=== PATIENT | female | born 1940 | race African-American/Black ===

== ENCOUNTER → 2017-03-01 | Outpatient (CLI) | payer MEDICARE, OTHER ==
[~2017-03-01] MED LIST: ATOR10TA60 PO; HYDR50TA6 PO; LOSA50TA6 PO; MELO15TA23 PO; METF-620 PO; NITR50CA PO; OMEP40CA5 PO
[2017-03-01 09:28] LABS: CALCIUM 9.3 mg/dL (8.5-10.1); CREATININE 0.9 mg/dL (0.6-1.0); GFR 74.1; POTASSIUM 4.1 mmol/L (3.5-5.1)
[2017-03-01 09:37] LABS: BASO % 1 % (0-3); EOS % 2 % (0-3); HEMATOCRIT 33.8 % (36.0-47.0); HEMOGLOBIN 10.6 g/dL (12.0-15.5); LYMPH # 1.9 x10^3/uL (1.0-4.8); LYMPH % 28 % (24-48); MEAN CORPUSCULAR HEMOGLOBIN 22 pg (25-35); MEAN CORPUSCULAR HGB CONC 31 g/dL (31-37); MEAN CORPUSCULAR VOLUME 70 fL (79-100); MONO % 6 % (0-9); NEUT % 63 % (31-73); PLATELET COUNT 218 x10^3/uL (140-400); RED CELL DISTRIBUTION WIDTH 18.4 % (11.5-14.5); WHITE BLOOD COUNT 6.7 x10^3/uL (4.0-11.0)
[2017-03-01 09:59] LABS: PROTHROMBIN TIME PATIENT 12.6 SEC (11.7-14.0)
[2017-03-01 11:04] LABS: PLT ESTIMATE ADEQUATE (ADEQUATE)
[2017-03-01 11:06] LABS: ANISOCYTOSIS SLIGHT; HYPOCHROMIA MOD; MICROCYTOSIS MOD; POIKILOCYTOSIS SLIGHT
--- NOTE | 2017-03-01 13:28 | RAD ---
Indication anticipated knee replacement. Preoperative imaging. Frontal and lateral views of the chest were obtained. No prior imaging of the chest is available. Postoperative changes are noted. There is mild enlargement of the cardiac silhouette. There is no congestive heart failure. There is no focal infiltrate. Significant pleural fluid is not seen. There is no pneumothorax. IMPRESSION: No acute or significant finding in the chest
[2017-03-01 14:44] LABS: BILIRUBIN,URINE NEGATIVE (NEG); GLUCOSE,URINE NEGATIVE (NEG); NITRITE,URINE NEGATIVE (NEG); PH,URINE 5.5; PROTEIN,URINE NEGATIVE (NEG-TRACE); UROBILINOGEN,URINE 0.2 mg/dL (0.2 mg/dL)
[2017-03-01 14:47] LABS: RBC,URINE 0 /HPF (0-2)
[2017-03-01 14:48] LABS: BACTERIA,URINE 0 /HPF (0-FEW); SQUAMOUS EPITHELIAL CELL,UR OCC /LPF; WBC,URINE OCC /HPF (0-4)
== END | disposition home or self-care (01) ==
LOC: SURGPAT 12:52
PROVIDERS: ATTEND Orthopaedic Surgery
DX: Z01.818 Encounter for other preprocedural examination (principal); I10 Essential (primary) hypertension; M17.12 Unilateral primary osteoarthritis, left knee; Z96.652 Presence of left artificial knee joint
CPT/HCPCS: 36415; 71020; 80048; 81001; 82040; 82306; 83036; 85025; 85610; 85651; 85730; 87086; 87641

== ENCOUNTER → 2018-12-13 | Outpatient (CLI) | payer OTHER ==
[2017-08-05 13:09] VITALS: BP 170/78
[~2018-12-13] MED LIST changes: +ASPI325T11 PO; +ASPI325T8 PO; +CEPH-264 PO; +FERR325T14 PO; +LOSA-73 PO; +LOSA100T14 PO; -LOSA50TA6 PO; -METF-620 PO; +METF10007 PO; +OXYC1TAB15 PO; +TRAM50TA PO
--- NOTE | 2018-12-14 08:28 | KCIC ---
STUDY: MRI of the right shoulder without contrast INDICATION: Recent fall. Right shoulder pain. Limited range of motion. COMPARISON: No prior cross-sectional imaging of the right shoulder available for comparison. TECHNIQUE: Multiplanar MR imaging of the right shoulder performed without the use of intravenous or intra-articular contrast. FINDINGS: AC joint: Moderate AC joint arthrosis. Spurring at the joint, particularly at the distal clavicle, results in some mild mass effect on the subjacent supraspinatus myotendinous junction, reference image 12 series 11. Small volume fluid within the subacromial subdeltoid bursa Rotator cuff: Focal low-grade interstitial tear of the junctional supraspinatus at the footprint, image 11 series 9. Background mild supraspinatus tendinosis. Some infraspinatus tendinosis is present as well without high-grade tear. The teres minor is intact. The subscapularis is intact. No advanced atrophy or fatty infiltration of the rotator cuff musculature. Labrum: Tearing of the superior labrum which extends into the biceps labral anchor, image 9 series 9. Some fraying/irregularity at the posterior/inferior labrum. Long head biceps tendon: The long head biceps tendon is normally located. Some intra-articular tendinosis as well as aforementioned tearing at the biceps-labral anchor. Cartilage: Areas of chondral thinning, particularly at the medial humeral head. Bones: Somewhat heterogeneous marrow signal without aggressive features. No acute fracture. Miscellaneous: No significant shoulder joint effusion. No axillary adenopathy. Impression: 1. Supraspinatus and infraspinatus tendinosis as well as a low-grade interstitial tear of the posterior/junctional supraspinatus at the footprint, image 11 series 9. Maintained rotator cuff muscular bulk. 2. Superior labral tear extending into the proximal long head biceps tendon at the biceps-labral anchor. Background mild intra-articular long head biceps tendinosis. 3. Scattered areas of glenohumeral joint chondral thinning, most notable at the medial humeral head. 4. Moderate AC joint arthrosis with some distal subclavicular spurring results in mild mass effect on the supraspinatus myotendinous junction. Electronically signed by: ANNABEL TREJO MD (12/14/2018 8:25 AM) [facility]
== END | disposition home or self-care (01) ==
LOC: KCIC MRI 14:18
PROVIDERS: ATTEND Orthopaedic Surgery
DX: S46.111A Strain of muscle, fascia and tendon of long head of biceps, right arm, initial encounter (principal); S46.011A Strain of muscle(s) and tendon(s) of the rotator cuff of right shoulder, initial encounter; S43.491A Other sprain of right shoulder joint, initial encounter; M19.011 Primary osteoarthritis, right shoulder; M75.81 Other shoulder lesions, right shoulder; W19.XXXA Unspecified fall, initial encounter; Y93.89 Activity, other specified; Y92.89 Other specified places as the place of occurrence of the external cause; Y99.8 Other external cause status
CPT/HCPCS: 73221

== ENCOUNTER 2019-04-12 12:53 | Emergency (ER) | payer OTHER ==
[~2019-04-12] VITALS: Ht 162.6 cm; Wt 78.0 kg
[~2019-04-12 12:53] MED LIST changes: +OMEP40CA45 PO; -OMEP40CA5 PO
[2019-04-12] MEDS ORDERED: diphenhydrAMINE HCL 25 MG CAPSULE PO ONE (13:30)
[2019-04-12] MEDS ORDERED: ACETAMINOPHEN 325 MG TABLET. PO ONE (13:45)
--- NOTE | 2019-04-12 13:51 | PHYS DOC ---
Past Medical History Past Medical History: CAD, Diabetes-Type II, GERD, Heart Disease, Hypertension, Sciatica Past Surgical History: Knee Replacement Additional Past Surgical Histo: appy, partial hysterectomy, left eye implant, rt foot operation Alcohol Use: None Drug Use: None Adult General Chief Complaint Chief Complaint: MECHANICAL FALL HPI HPI 78-year-old female presenting the emergency department today after standing up a little too quickly feeling a little dizzy and falling backwards. She doesn't think she hit her head but her daughter thinks she might have. She complains of right shoulder pain and left wrist pain. The pain is sharp shooting nonradiating without alleviating factors. He frequently gets dizzy from her acoustic neuroma. Review of systems is negative for shortness of breath headache vision changes numbness weakness or tingling of the extremities. Negative for chest pain or abdominal pain. She has left-sided rib pain without midline back pain. All other review of systems is negative unless otherwise noted in history of present illness. ED course: 78-year-old female who fell backwards. X-rays and CT ordered. X-rays left wrist show a triquetral fracture. X-rays of the shoulder and ribs were unremarkable. A placed the patient in the right shoulder sling. Head neck CT are unremarkable. Patient was able to ambulate in the emergency department without any pain in the hip. Review of Systems Review of Systems SEE ABOVE. Current Medications Current Medications Current Medications Medications (Trade) Dose Ordered Sig/Jannet Start Time Stop Time Status Last Admin Dose Admin Acetaminophen (Tylenol) 650 mg 1X ONCE 04/12/19 13:45 04/12/19 13:48 DC 04/12/19 13:57 650 MG Diphenhydramine HCl (Benadryl) 12.5 mg 1X ONCE 04/12/19 13:30 04/12/19 13:31 DC Ibuprofen (Motrin) 400 mg 1X ONCE 04/12/19 14:45 04/12/19 14:46 DC 04/12/19 14:41 400 MG Allergies Allergies Allergies Coded Allergies Type Severity Reaction Last Updated Verified gold Au 198 Allergy Intermediate Swelling 03/17/17 Yes nickel Allergy Intermediate Swelling 03/17/17 Yes silver Allergy Intermediate Swelling 03/17/17 Yes Penicillins Adverse Reaction Intermediate 01/21/17 Yes Tetracyclines Adverse Reaction Intermediate 01/21/17 Yes codeine Adverse Reaction Intermediate Nausea and Vomiting 08/03/17 Yes erythromycin base Adverse Reaction Intermediate Nausea and Vomiting 01/21/17 Yes morphine Adverse Reaction Intermediate VOMITING 08/03/17 Yes Physical Exam Physical Exam SEE ABOVE Constitutional: Well developed, well nourished, no acute distress, non-toxic appearance. HENT: Normocephalic, without any signs of lacerations ecchymosis or bruising. No depressed skull fractures., bilateral external ears normal, oropharynx moist, no oral exudates, nose normal. [] Eyes: PERRLA, EOMI, conjunctiva normal, no discharge. [] Neck: Normal range of motion, no tenderness, supple, no stridor. [] Cardiovascular:Heart rate regular rhythm, no murmur [] Lungs & Thorax: Bilateral breath sounds clear to auscultation [] Abdomen: Bowel sounds normal, soft, no tenderness, no masses, no pulsatile masses. [] Skin: Warm, dry, no erythema, no rash. [] Back: No tenderness, no CVA tenderness. [] Extremities: The patient's right shoulder has mildly tender to palpation. All pain with passive range of motion. Normal strength in internal and external rate patient. Normal strength on abduction and adduction. Normal neurovascular status distally. Nontender throughout the elbow and wrist and hand. The patient's left upper extremity has mild tenderness in the left wrist without any swelling or bruising. The hand elbow and shoulder left wrist are nontender with normal range of motion of the joints. The lower extremities are nontender without any pain in the hips. She is able to ambulate without any pain. Neurologic: Alert and oriented X 3, normal motor function, normal sensory function, no focal deficits noted. 5 out of 5 strength in the extremities. Psychologic: Affect normal, judgement normal, mood normal. [] Current Patient Data Vital Signs Vital Signs Date Time Temp Pulse Resp B/P (MAP) Pulse Ox O2 Delivery O2 Flow Rate FiO2 04/12/19 15:04 72 96 04/12/19 12:58 97.8 20 154/67 (96) Room Air 97.8 EKG EKG [] Radiology/Procedures Radiology/Procedures [] Course & Med Decision Making Course & Med Decision Making Pertinent Labs and Imaging studies reviewed. (See chart for details) [] Dragon Disclaimer Dragon Disclaimer This electronic medical record was generated, in whole or in part, using a voice recognition dictation system. Departure Departure Impression: Primary Impression: Left shoulder pain Additional Impressions: Triquetral fracture Rib pain Disposition: 01 HOME, SELF-CARE Condition: STABLE Referrals: GEOFFREY REDDING MD (PCP) ROBERT DILLARD II, MD Patient Instructions: Shoulder Pain, Wrist Fracture Additional Instructions: Thank you for allowing us to participate in your care today. Return to the emergency department you have any new or worsening symptoms, or if you are concerned for any reason. Return to emergency department if you have any new or concerning symptoms including but not limited to fever, chills, nausea, vomiting, intractable pain, any new rashes, chest pain, shortness of air, uncontrolled bleeding, difficulty breathing, and/or vision loss. Follow up with your primary care physician within 1-2 days and orthopedic surgery in 3-5 days. Call your Primary Doctor tomorrow and inform them of your visit today. If you do not have a primary care provider we are happy to provide you with a list of our primary care providers contact information. This condition should be evaluated by your primary care physician and any recommended consulting services for continued management within 2 days after discharge. If at any time, you are having difficulty getting into your primary care doctor or a specialist, return to the emergency department. Scripts Cyclobenzaprine Hcl (CYCLOBENZAPRINE HCL) 5 Mg Tablet 1 TAB PO TID PRN PRN for PAIN, #12 TAB 0 Refills Prov: NANCY SHAIKH MD 04/12/19 Problem Qualifiers NANCY SHAIKH MD Apr 12, 2019 13:51
--- NOTE | 2019-04-12 14:22 | RAD ---
PA chest and 3 oblique left rib x-rays HISTORY: Fall. FINDINGS: Median sternotomy. Heart size normal. Aortic arch calcified plaque. No pneumothorax, pulmonary opacities or pleural effusions. Small calcified granulomas upper lobes. No evidence of a left rib fracture. IMPRESSION: No acute process. No evidence of a left rib fracture. Left wrist x-rays 3 views HISTORY: Fall, left wrist pain. FINDINGS: Irregular lucency and cortical discontinuity of the triquetrum suspicious for fracture with ill-defined sclerotic bony margins could indicate this is a nonunion fracture or pathologic fracture, versus an acute traumatic impacted fracture. No dislocation. Remaining carpal bones intact. No normal pisiform identified. IMPRESSION: Fracture of the triquetrum as described above. Right shoulder x-rays 3 views HISTORY: Fall. FINDINGS: No fracture. No dislocation. Arthrosis of the acromioclavicular joint. IMPRESSION: No acute osseous injury. Electronically signed by: Dann Yao MD (04/12/2019 2:19 PM) [facility]
--- NOTE | 2019-04-12 14:33 | RAD ---
CT head without contrast. CT cervical spine without contrast. PQRS statement: CT scans at this facility use dose reduction including either automated exposure control, iterative reconstructions, and /or weight based radiation dosing via mA and kV modification when appropriate to reduce radiation dose to as low as reasonably achievable. HISTORY: Fall from standing. CT head findings: Right cerebellopontine angle 1.4 cm oblong extra-axial mass with increased density likely from microcalcification most likely a meningioma. No intracranial hemorrhage, hydrocephalus or infarction. No acute ischemic change. Orbits, mastoids and bones are unremarkable. IMPRESSION: No acute intracranial CT abnormality. Right cerebellopontine angle mass most likely a meningioma as described above. CT cervical spine findings: Precervical junction intact. Cervical vertebral body height and alignment intact. No fracture of the cervical spine. Multilevel cervical disc height loss as well as scattered disc bulges and uncovertebral and facet spurs with spinal canal and neural foraminal stenoses with probable severe stenosis at C5-C6 and C6-C7. Lung apices and paraspinal tissues are unremarkable. IMPRESSION: No acute osseous injury of the cervical spine. Cervical disc disease as described above. Electronically signed by: Dann Yao MD (04/12/2019 2:30 PM) [facility]
[2019-04-12] MEDS ORDERED: IBUPROFEN 400 MG TABLET. PO ONE (14:45)
[2019-04-12 15:04] VITALS: BP 146/68
[2019-04-12] MEDS ORDERED: CYCL5TAB PO (15:37)
== END 2019-04-12 15:40 | disposition home or self-care (01) ==
LOC: ER 12:53
DX: S62.114A Nondisplaced fracture of triquetrum [cuneiform] bone, right wrist, initial encounter for closed fracture (principal); M25.511 Pain in right shoulder; M25.532 Pain in left wrist; R42 Dizziness and giddiness; R07.81 Pleurodynia; M50.90 Cervical disc disorder, unspecified, unspecified cervical region; E11.9 Type 2 diabetes mellitus without complications; I11.9 Hypertensive heart disease without heart failure; I25.10 Atherosclerotic heart disease of native coronary artery without angina pectoris; Z90.711 Acquired absence of uterus with remaining cervical stump; Z88.0 Allergy status to penicillin; Z88.1 Allergy status to other antibiotic agents; Z88.5 Allergy status to narcotic agent; Z88.8 Allergy status to other drugs, medicaments and biological substances; W18.39XA Other fall on same level, initial encounter; Y93.89 Activity, other specified; Y92.89 Other specified places as the place of occurrence of the external cause; Y99.8 Other external cause status
CPT/HCPCS: 29125; 70450; 71101; 72125; 73030; 73110; 99284-25

== ENCOUNTER → 2019-11-02 | Outpatient (CLI) | payer MEDICARE, OTHER ==
[~2019-11-02] MED LIST changes: +CYCL5TAB PO
--- NOTE | 2019-11-02 14:00 | KCIC ---
LUMBAR SPINE WO CONTRAST Date: 11/02/2019 12:30 PM Indication: Reason: LEFT HIP PAIN / Spl. Instructions: / History: Left hip pain x one month. Comparison: None. Technique: Multi-planar multi-weighted magnetic resonance imaging of the lumbar spine was performed without intravenous contrast using the standard lumbar spine protocol. FINDINGS: Trace retrolisthesis at L2-3. Trace anterolisthesis at L4-5. No acute fracture. Mild multilevel degenerative disc desiccation and disc height loss. No marrow replacing process to suggest malignancy. The conus terminates at a normal level. No abnormal signal is seen within the visualized distal spinal cord. No clumping of intrathecal nerve roots. No soft tissue abnormality in the visualized abdomen or pelvis. T12-L1: No disc bulge. No facet arthropathy. No significant spinal stenosis or neural foraminal narrowing. L1-L2: Disc bulge. Mild facet arthropathy. No significant spinal stenosis or neural foraminal narrowing. L2-L3: Disc bulge. Mild facet arthropathy. Mild spinal stenosis. Mild bilateral neural foraminal narrowing. L3-L4: Disc bulge. Mild facet arthropathy. No significant spinal stenosis or neural foraminal narrowing. L4-L5: Disc bulge. Moderate to severe facet arthropathy with edema in the facet joints. Ligamentum flavum thickening. No significant spinal stenosis. Mild bilateral neural foraminal narrowing. L5-S1: Disc bulge. Mild facet arthropathy. No significant spinal stenosis. Mild bilateral neural foraminal narrowing. IMPRESSION: Mild to moderate lumbar spondylosis, detailed level by level above. Electronically signed by: Michael Khan MD (11/02/2019 1:58 PM) [id number]
== END ==
LOC: KCIC MRI 12:25
PROVIDERS: ATTEND Orthopaedic Surgery
DX: M47.817 Spondylosis without myelopathy or radiculopathy, lumbosacral region (principal); M48.061 Spinal stenosis, lumbar region without neurogenic claudication
CPT/HCPCS: 72148

== ENCOUNTER 2020-01-29 17:58 | Inpatient (IN) | payer MEDICARE, OTHER ==
[~2020-01-29] VITALS: Ht 162.6 cm; Wt 77.1 kg
[2020-01-29] MEDS ORDERED: ONDANSETRON PF 4 MG/2 ML VIAL. IVP ONE (18:45)
[2020-01-29] MEDS ORDERED: fentaNYL PF VIAL 100 MCG/2 ML VIAL IVP ONE (18:45)
[2020-01-29 18:54] LABS: BASO % 0 % (0-3); EOS # 0.1 x10^3/uL (0.0-0.7); EOS % 1 % (0-3); HEMATOCRIT 38.8 % (36.0-47.0); HEMOGLOBIN 12.9 g/dL (12.0-15.5); LYMPH # 1.9 x10^3/uL (1.0-4.8); LYMPH % 20 % (24-48); MEAN CORPUSCULAR HEMOGLOBIN 29 pg (25-35); MEAN CORPUSCULAR HGB CONC 33 g/dL (31-37); MEAN CORPUSCULAR VOLUME 87 fL (79-100); MONO # 0.6 x10^3/uL (0.0-1.1); MONO % 6 % (0-9); NEUT % 73 % (31-73); PLATELET COUNT 162 x10^3/uL (140-400); RED BLOOD COUNT 4.44 x10^6/uL (3.50-5.40); RED CELL DISTRIBUTION WIDTH 14.5 % (11.5-14.5); WHITE BLOOD COUNT 9.6 x10^3/uL (4.0-11.0)
[2020-01-29 19:04] LABS: PROTHROMBIN TIME PATIENT 12.8 SEC (11.7-14.0)
--- NOTE | 2020-01-29 19:24 | PHYS DOC ---
Past Medical History Past Medical History: CAD, Diabetes-Type II, GERD, Heart Disease, Hypertension, Sciatica Past Medical History acoustic neuroma Past Surgical History: Knee Replacement Additional Past Surgical Histo: appy, partial hysterectomy, left eye implant, rt foot operation,rotator cuf Smoking Status: Never Smoker Alcohol Use: None Drug Use: None General Adult EDM: Chief Complaint: HIP PAIN HPI: HPI: Patient is a 79 year old F who presents with L hip pain that began after falling on her left side. Pt states that she has a acoustic neuroma on her R side that causes her to lose her balance, but denies dizziness. She states that she has been falling more often over the last few months. She describes the hip pain as sharp and does not radiate. The pain is worse when she tries to move her left leg. She rates the pain as 12/10 on the pain scale and she received 100mcg of fetanyl by EMS. She states that she did not hit her head when she fell. She complains of nausea and some numbness of the L hip. Review of Systems: Review of Systems: Constitutional: Denies fever or chills Eyes: Denies redness or eye pain HENT: Denies nasal congestion or sore throat Respiratory: Denies cough or shortness of breath Cardiovascular: Denies chest pain or palpitations GI: Denies abdominal pain, vomiting. Complains of nausea. : Denies dysuria or hematuria Musculoskeletal: Denies back pain or joint pain Integument: Denies rash or skin lesions Neurologic: Denies headache, or focal weakness. Complete systems were reviewed and found to be within normal limits, except as documented in this note. Current Medications: Current Medications Medications (Trade) Dose Ordered Sig/Jannet Start Time Stop Time Status Last Admin Dose Admin Fentanyl Citrate (Fentanyl 2ml Vial) 50 mcg 1X ONCE 01/29/20 18:45 01/29/20 18:47 DC 01/29/20 19:04 50 MCG Ondansetron HCl (Zofran) 4 mg 1X ONCE 01/29/20 18:45 01/29/20 18:47 DC 01/29/20 19:03 4 MG Allergies: Allergies: Allergies Coded Allergies Type Severity Reaction Last Updated Verified gold Au 198 Allergy Intermediate Swelling 01/29/20 Yes nickel Allergy Intermediate Swelling 01/29/20 Yes silver Allergy Intermediate Swelling 01/29/20 Yes Penicillins Adverse Reaction Intermediate 01/29/20 Yes Tetracyclines Adverse Reaction Intermediate 01/29/20 Yes codeine Adverse Reaction Intermediate Nausea and Vomiting 01/29/20 Yes erythromycin base Adverse Reaction Intermediate Nausea and Vomiting 01/29/20 Yes morphine Adverse Reaction Intermediate VOMITING 01/29/20 Yes Physical Exam: PE: Constitutional: Well developed, well nourished. HENT: Normocephalic, atraumatic. Eyes: EOMI, conjunctiva normal. Neck: Normal range of motion, no tenderness, supple Lungs & Thorax: No respiratory distress, equal chest rise and fall Abdomen: Soft, no tenderness Skin: Warm, dry, no erythema, no rash Back: No tenderness, no CVA tenderness Extremities: L hip externally rotated. Pain to palpation L hip. No obvious deformity noted. Sensory intact b/l. Posterior tibial pulse +2/2 b/l. Able to move all toes. Neurologic: Alert and oriented X 3, normal motor function, normal sensory function, no focal deficits noted Psychologic: Affect normal, judgment normal Current Patient Data: Labs: Laboratory Tests Test 01/29/20 18:15 White Blood Count 9.6 x10^3/uL (4.0-11.0) Red Blood Count 4.44 x10^6/uL (3.50-5.40) Hemoglobin 12.9 g/dL (12.0-15.5) Hematocrit 38.8 % (36.0-47.0) Mean Corpuscular Volume 87 fL (79-100) Mean Corpuscular Hemoglobin 29 pg (25-35) Mean Corpuscular Hemoglobin Concent 33 g/dL (31-37) Red Cell Distribution Width 14.5 % (11.5-14.5) Platelet Count 162 x10^3/uL (140-400) Neutrophils (%) (Auto) 73 % (31-73) Lymphocytes (%) (Auto) 20 % (24-48) L Monocytes (%) (Auto) 6 % (0-9) Eosinophils (%) (Auto) 1 % (0-3) Basophils (%) (Auto) 0 % (0-3) Neutrophils # (Auto) 7.0 x10^3/uL (1.8-7.7) Lymphocytes # (Auto) 1.9 x10^3/uL (1.0-4.8) Monocytes # (Auto) 0.6 x10^3/uL (0.0-1.1) Eosinophils # (Auto) 0.1 x10^3/uL (0.0-0.7) Basophils # (Auto) 0.0 x10^3/uL (0.0-0.2) Laboratory Tests 01/29/20 18:15 Vital Signs: Vital Signs Date Time Temp Pulse Resp B/P (MAP) Pulse Ox O2 Delivery O2 Flow Rate FiO2 01/29/20 19:04 18 98 01/29/20 17:58 97.7 72 201/93 (129) Room Air 97.7 EKG: EKG: @18:16 Normal sinus rhythm with baseline wandering artifact. No ST elevations or T wave inversions. QRS 86ms, QT 412ms, QTc 458ms. Radiology/Procedures: Radiology/Procedures: PROCEDURE: HIP LEFT 2V WITH PELVIS HIP LEFT 2V WITH PELVIS History: Reason: pain s/p fall / Spl. Instructions: / History: Technique: AP view the pelvis and 2 additional views of the left hip. Comparison: October 02, 2019 Findings: Acute left femoral neck fracture with superior displacement. No dislocation. Lower lumbar spondylosis. Impression: 1. Acute displaced left femoral neck fracture. Electronically signed by: Liam Bach DO (01/29/2020 7:53 PM) [facility] PROC[facility]: CHEST AP ONLY CHEST AP ONLY History: Reason: LEFT HIP FX. / Spl. Instructions: / History: Preoperative evaluation Comparison: April 12, 2019 Findings: No consolidation or pleural effusion. Normal heart size. No pneumothorax. Prior median sternotomy. Impression: 1. No acute cardiopulmonary process. Electronically signed by: Liam Bach DO (01/29/2020 7:54 PM) [facility] Course & Med Decision Making: Course & Med Decision Making 79 yo F presented for L hip pain post fall. Pt states that she often loses her balance due to her acoustic neuroma. L hip tender to palpation, neurovascular intact. Imaging revealed L femoral neck fracture, non displaced. Pain controlled was achieved with fentanyl 150 mcg and benadryl. Nausea controlled with zofran and reglan. Orthopedic surgery consulted for future surgical intervention. Pt will be admitted to floor for further management. Pertinent Labs and Imaging studies reviewed. (See chart for details) [] Riccardo Disclaimer: Dragon Disclaimer: This electronic medical record was generated, in whole or in part, using a voice recognition dictation system. Departure Departure Impression: Primary Impression: Left displaced femoral neck fracture Additional Impression: Hypomagnesemia Disposition: 09 ADMITTED INPATIENT Admitting Physician: ALVIN (Delfino) Condition: STABLE Referrals: GEOFFREY REDDING MD (PCP) Justicifation of Admission Dx: Justifications for Admission: Justification of Admission Dx: Yes Comments: Left femoral neck fracture, Hypomagnesmia NANCI ZELAYA DO Jan 29, 2020 19:24
[2020-01-29 19:34] LABS: CALCIUM 9.4 mg/dL (8.5-10.1); CREATININE 1.2 mg/dL (0.6-1.0); GFR 43.6; POTASSIUM 3.7 mmol/L (3.5-5.1)
[2020-01-29 19:41] LABS: ALBUMIN 3.7 g/dL (3.4-5.0); ALBUMIN/GLOBULIN RATIO 1.1 (1.0-1.7); MAGNESIUM 1.4 mg/dL (1.8-2.4); TOTAL BILIRUBIN 0.2 mg/dL (0.2-1.0); TOTAL PROTEIN 7.1 g/dL (6.4-8.2)
--- NOTE | 2020-01-29 19:56 | RAD ---
HIP LEFT 2V WITH PELVIS History: Reason: pain s/p fall / Spl. Instructions: / History: Technique: AP view the pelvis and 2 additional views of the left hip. Comparison: October 02, 2019 Findings: Acute left femoral neck fracture with superior displacement. No dislocation. Lower lumbar spondylosis. Impression: 1. Acute displaced left femoral neck fracture. Electronically signed by: Liam Bach DO (01/29/2020 7:53 PM) [facility]
--- NOTE | 2020-01-29 19:57 | RAD ---
CHEST AP ONLY History: Reason: LEFT HIP FX. / Spl. Instructions: / History: Preoperative evaluation Comparison: April 12, 2019 Findings: No consolidation or pleural effusion. Normal heart size. No pneumothorax. Prior median sternotomy. Impression: 1. No acute cardiopulmonary process. Electronically signed by: Liam Bach DO (01/29/2020 7:54 PM) [facility]
[2020-01-29] MEDS ORDERED: METOCLOPRAMIDE HCL 10 MG/2 ML VIAL. IVP ONE (20:15)
[2020-01-29] MEDS ORDERED: diphenhydrAMINE 50 MG/ML VIAL IVP ONE (20:15)
[2020-01-29] MEDS ORDERED: DEXTROSE 50% 25 GM / 50ML DISP.SYRIN. IV PRN (20:45)
[2020-01-29] MEDS ORDERED: ONDANSETRON PF 4 MG/2 ML VIAL. IV PRN (20:45)
[2020-01-29] MEDS ORDERED: HYDROmorphone 2 MG/ML VIAL IVP ONE ×2 (20:45→22:00)
[2020-01-29] MEDS ORDERED: MAGNESIUM SULFATE 2GM 50 ML IV ONE (21:15)
[2020-01-29] MEDS ORDERED: traMADol 50 MG TABLET PO PRN (21:30)
[2020-01-29] MEDS ORDERED: LABETALOL 20 MG/4 ML DISP.SYRIN. IVP PRN (21:30)
[2020-01-29] MEDS ORDERED: ACETAMINOPHEN 325 MG TABLET. PO PRN (21:30)
[2020-01-29 23:00] VITALS: BP 174/63
[2020-01-29] MEDS: ATORVASTATIN CALCIUM 10 MG TABLET. PO SCH (23:45)
[2020-01-30] MEDS: ONDANSETRON PF 4 MG/2 ML VIAL. IV PRN ×3 (00:37→23:10)
[2020-01-30 03:00] VITALS: BP 142/72
[2020-01-30] MEDS: HYDROmorphone 2 MG/ML VIAL IVP PRN ×3 (03:23→16:49)
--- NOTE | 2020-01-30 04:14 | EKG ---
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
[2020-01-30 06:29] LABS: CALCIUM 9.1 mg/dL (8.5-10.1); CREATININE 0.9 mg/dL (0.6-1.0); GFR 60.7; MAGNESIUM 2.4 mg/dL (1.8-2.4); POTASSIUM 3.6 mmol/L (3.5-5.1)
[2020-01-30] MEDS: PANTOPRAZOLE 40 MG TABLET.DR. PO SCH (07:30)
[2020-01-30 07:34] VITALS: BP 137/52
[2020-01-30] MEDS ORDERED: [UNRECOGNIZED DRUG - REMARK] INT ART ONE (08:00)
[2020-01-30] MEDS ORDERED: INSULIN LISPRO 300 UNITS/3 ML VIAL. SQ SCH (08:00)
[2020-01-30] MEDS ORDERED: LIDOCAINE 2% PF 5 ML VIAL. ONE (09:16)
[2020-01-30] MEDS ORDERED: PROPOFOL 10 MG/ML (20ML) VIAL. IV ONE (09:16)
[2020-01-30] MEDS ORDERED: ROCURONIUM 50 MG/5 ML VIAL. ONE (09:16)
[2020-01-30] MEDS ORDERED: DEXAMETHASONE SOD PHOS 4 MG/ML VIAL ONE (09:16)
[2020-01-30] MEDS ORDERED: ONDANSETRON PF 4 MG/2 ML VIAL. ONE (09:16)
[2020-01-30] MEDS ORDERED: fentaNYL PF VIAL 100 MCG/2 ML VIAL ONE (09:16)
--- NOTE | 2020-01-30 09:29 | NUR ---
SW following. Discussed with RN, pt from home with family, room air, NPO, COVID-19 negative. Pt had a fall at home, ortho consulted. SW will continue to follow.
--- NOTE | 2020-01-30 10:41 | PDOC2 ---
CONSULT Date of Consult Date of Consult DATE: 01/30/20 TIME: 10:32 Reason for Consult Reason for Consult: Left hip pain after fall at home onto left side. Referring Physician Referring Physician: Dr. Carroll Identification/Chief Complaint Chief Complaint Left hip pain Source Source: Caregiver, Chart review, Patient History of Present Illness Reason for Visit: Patient does have an acoustic neuroma but states that she was not dizzy but has been falling more lately and fell onto her left hip and was unable to get to her feet related to pain. Past Medical History Cardiovascular: HTN GI: GERD, Other Endocrine: Diabetes Past Surgical History Past Surgical History: Appendectomy, Total knee replacement, Hysterectomy Family History Family History: Heart Disease Social History No ALCOHOL: none Drugs: None Current Problem List Problem List Problems Medical Problems: (1) Hypomagnesemia Status: Acute (2) Left displaced femoral neck fracture Status: Acute Current Medications Current Medications Current Medications Fentanyl Citrate (Fentanyl 2ml Vial) 50 mcg 1X ONCE IVP Last administered on 01/29/20at 19:04; Start 01/29/20 at 18:45; Stop 01/29/20 at 18:47; Status DC Ondansetron HCl (Zofran) 4 mg 1X ONCE IVP Last administered on 01/29/20at 19:03; Start 01/29/20 at 18:45; Stop 01/29/20 at 18:47; Status DC Diphenhydramine HCl (Benadryl) 25 mg 1X ONCE IVP ; Start 01/29/20 at 20:15; Stop 01/29/20 at 20:33; Status DC Metoclopramide HCl (Reglan Vial) 10 mg 1X ONCE IVP Last administered on 01/29/20at 20:40; Start 01/29/20 at 20:15; Stop 01/29/20 at 20:16; Status DC Hydromorphone HCl (Dilaudid) 0.5 mg 1X ONCE IVP Last administered on 01/29/20at 20:40; Start 01/29/20 at 20:45; Stop 01/29/20 at 20:46; Status DC Ondansetron HCl (Zofran) 4 mg PRN Q8HRS PRN IV NAUSEA/VOMITING; Start 01/29/20 at 20:45; Stop 01/29/20 at 21:30; Status DC Hydromorphone HCl (Dilaudid) 0.5 mg PRN Q4HRS PRN IVP PAIN Last administered on 01/30/20at 07:40; Start 01/29/20 at 20:45 Insulin Human Lispro (HumaLOG) 0-5 UNITS TIDWMEALS SQ ; Start 01/30/20 at 08:00 Dextrose (Dextrose 50%-Water Syringe) 12.5 gm PRN Q15MIN PRN IV SEE COMMENTS; Start 01/29/20 at 20:45 Magnesium Sulfate 50 ml @ 25 mls/hr 1X ONCE IV Last administered on 01/29/20at 23:45; Start 01/29/20 at 21:15; Stop 01/29/20 at 23:14; Status DC Hydromorphone HCl (Dilaudid) 0.5 mg 1X ONCE IVP Last administered on 01/29/20at 23:44; Start 01/29/20 at 22:00; Stop 01/29/20 at 22:01; Status DC Ondansetron HCl (Zofran) 4 mg PRN Q4HRS PRN IV NAUSEA/VOMITING 1ST CHOICE Last administered on 01/30/20at 00:37; Start 01/29/20 at 21:30 Acetaminophen (Tylenol) 650 mg PRN Q6HRS PRN PO MILD PAIN / TEMP > 100.3'F; Start 01/29/20 at 21:30 Atorvastatin Calcium (Lipitor) 10 mg HS PO Last administered on 01/29/20at 23:45; Start 01/29/20 at 22:00 Losartan Potassium (Cozaar) 100 mg DAILY PO ; Start 01/30/20 at 09:00 Pantoprazole Sodium (Protonix) 40 mg DAILYAC PO ; Start 01/30/20 at 07:30 Labetalol HCl (Normodyne Iv Push) 10 mg PRN Q2HR PRN IVP HYPERTENSION; Start 01/29/20 at 21:30 Tramadol HCl (Ultram) 50 mg PRN Q6HRS PRN PO MODERATE PAIN 4-6 Last administered on 01/30/20at 03:22; Start 01/29/20 at 21:30 Ropivacaine 53.3 ml/Epinephrine HCl 0.6 mg/ Morphine Sulfate 5 mg/Sodium Chloride 100 ml @ 100 mls/hr 1X ONCE INT ART ; Start 01/30/20 at 08:00; Stop 01/30/20 at 08:59; Status DC Rocuronium [place] (Zemuron) 50 mg STK-MED ONCE .ROUTE ; Start 01/30/20 at 09:16; Stop 01/30/20 at 09:16; Status DC Fentanyl Citrate (Fentanyl 2ml Vial) 100 mcg STK-MED ONCE .ROUTE ; Start 01/30/20 at 09:16; Stop 01/30/20 at 09:16; Status DC Propofol (Diprivan) 200 mg STK-MED ONCE IV ; Start 01/30/20 at 09:16; Stop 01/30/20 at 09:16; Status DC Dexamethasone Sodium Phosphate (Decadron) 4 mg STK-MED ONCE .ROUTE ; Start 01/30/20 at 09:16; Stop 01/30/20 at 09:16; Status DC Ondansetron HCl (Zofran) 4 mg STK-MED ONCE .ROUTE ; Start 01/30/20 at 09:16; Stop 01/30/20 at 09:16; Status DC Lidocaine HCl (Lidocaine Pf 2% Vial) 5 ml STK-MED ONCE .ROUTE ; Start 01/30/20 at 09:16; Stop 01/30/20 at 09:16; Status DC Active Scripts Active Cyclobenzaprine Hcl 5 Mg Tablet 1 Tab PO TID PRN PRN Reported Aspirin Ec (Aspirin) 325 Mg Tablet. 1 Tab PO BID Ferrous Sulfate 325 Mg Tablet 1 Tab PO BID Losartan Potassium 100 Mg Tablet 100 Mg PO DAILY Atorvastatin Calcium 10 Mg Tablet 10 Mg PO HS LAST DOSE GIVEN: DATE:08/04/17 TIME:9:00 p.m. next dose is tonight Omeprazole 40 Mg Capsule.dr 40 Mg PO DAILY LAST DOSE GIVEN: DATE:03/19/17 TIME:7:30 a.m. Metformin Hcl 1,000 Mg Tablet 1,000 Mg PO BIDWMEALS LAST DOSE GIVEN: DATE:03/19/17 TIME:12:00 p.m. Hydrochlorothiazide Tablet (Hydrochlorothiazide) 50 Mg Tablet 25 Mg PO DAILY Meds not given this hospital admission. May resume home medications as approved by Physician. Monitor BP at home Allergies Allergies: Coded Allergies: gold Au 198 (Verified Allergy, Intermediate, Swelling, 01/29/20) nickel (Verified Allergy, Intermediate, Swelling, 01/29/20) silver (Verified Allergy, Intermediate, Swelling, 01/29/20) Penicillins (Verified Adverse Reaction, Intermediate, 01/29/20) BLISTERS Tetracyclines (Verified Adverse Reaction, Intermediate, 01/29/20) MOUTH TURNS BRIGHT RED AND PEELS codeine (Verified Adverse Reaction, Intermediate, Nausea and Vomiting, 01/29/20) erythromycin base (Verified Adverse Reaction, Intermediate, Nausea and Vomiting, 01/29/20) morphine (Verified Adverse Reaction, Intermediate, VOMITING, 01/29/20) ROS PSYCHOLOGICAL ROS: No: Disorientation Physical Exam General: Alert, Oriented X3, Cooperative, severe distress MUSCULOSKELETAL: Abnormal exam of left (On examination patient will not allow any movement of the left lower extremity related to pain. The leg is shortened and externally rotated. Pulses are intact distally. She is able to move her toes feet and ankles well.) Vitals VITALS Vital Signs Date Time Temp Pulse Resp B/P (MAP) Pulse Ox O2 Delivery O2 Flow Rate FiO2 01/30/20 08:15 20 93 Room Air 01/30/20 07:34 98.5 71 137/52 (80) 98.5 Labs Labs Laboratory Tests Test 01/29/20 18:15 01/29/20 20:05 01/29/20 21:50 01/30/20 05:05 White Blood Count 9.6 x10^3/uL (4.0-11.0) Red Blood Count 4.44 x10^6/uL (3.50-5.40) Hemoglobin 12.9 g/dL (12.0-15.5) Hematocrit 38.8 % (36.0-47.0) Mean Corpuscular Volume 87 fL (79-100) Mean Corpuscular Hemoglobin 29 pg (25-35) Mean Corpuscular Hemoglobin Concent 33 g/dL (31-37) Red Cell Distribution Width 14.5 % (11.5-14.5) Platelet Count 162 x10^3/uL (140-400) Neutrophils (%) (Auto) 73 % (31-73) Lymphocytes (%) (Auto) 20 % (24-48) Monocytes (%) (Auto) 6 % (0-9) Eosinophils (%) (Auto) 1 % (0-3) Basophils (%) (Auto) 0 % (0-3) Neutrophils # (Auto) 7.0 x10^3/uL (1.8-7.7) Lymphocytes # (Auto) 1.9 x10^3/uL (1.0-4.8) Monocytes # (Auto) 0.6 x10^3/uL (0.0-1.1) Eosinophils # (Auto) 0.1 x10^3/uL (0.0-0.7) Basophils # (Auto) 0.0 x10^3/uL (0.0-0.2) Prothrombin Time 12.8 SEC (11.7-14.0) Prothromb Time International Ratio 1.0 (0.8-1.1) Activated Partial Thromboplast Time 28 SEC (24-38) Sodium Level 141 mmol/L (136-145) 140 mmol/L (136-145) Potassium Level 3.7 mmol/L (3.5-5.1) 3.6 mmol/L (3.5-5.1) Chloride Level 102 mmol/L (98-107) 102 mmol/L (98-107) Carbon Dioxide Level 21 mmol/L (21-32) 30 mmol/L (21-32) Anion Gap 18 (6-14) 8 (6-14) Blood Urea Nitrogen 22 mg/dL (7-20) 22 mg/dL (7-20) Creatinine 1.2 mg/dL (0.6-1.0) 0.9 mg/dL (0.6-1.0) Estimated GFR (Cockcroft-Gault) 43.6 60.7 BUN/Creatinine Ratio 18 (6-20) Glucose Level 106 mg/dL (70-99) 123 mg/dL (70-99) Calcium Level 9.4 mg/dL (8.5-10.1) 9.1 mg/dL (8.5-10.1) Magnesium Level 1.4 mg/dL (1.8-2.4) 2.4 mg/dL (1.8-2.4) Total Bilirubin 0.2 mg/dL (0.2-1.0) Aspartate Amino Transf (AST/SGOT) 30 U/L (15-37) Alanine Aminotransferase (ALT/SGPT) 30 U/L (14-59) Alkaline Phosphatase 62 U/L (46-116) Total Protein 7.1 g/dL (6.4-8.2) Albumin 3.7 g/dL (3.4-5.0) Albumin/Globulin Ratio 1.1 (1.0-1.7) SARS-CoV-2 Antigen (Rapid) Negative (NEGATIVE) 25-Hydroxy Vitamin D Total 20.5 ng/mL (30-100) Test 01/30/20 07:51 Glucose (Fingerstick) 116 mg/dL (70-99) Laboratory Tests Test 01/29/20 18:15 01/29/20 20:05 01/29/20 21:50 01/30/20 05:05 White Blood Count 9.6 x10^3/uL (4.0-11.0) Red Blood Count 4.44 x10^6/uL (3.50-5.40) Hemoglobin 12.9 g/dL (12.0-15.5) Hematocrit 38.8 % (36.0-47.0) Mean Corpuscular Volume 87 fL (79-100) Mean Corpuscular Hemoglobin 29 pg (25-35) Mean Corpuscular Hemoglobin Concent 33 g/dL (31-37) Red Cell Distribution Width 14.5 % (11.5-14.5) Platelet Count 162 x10^3/uL (140-400) Neutrophils (%) (Auto) 73 % (31-73) Lymphocytes (%) (Auto) 20 % (24-48) Monocytes (%) (Auto) 6 % (0-9) Eosinophils (%) (Auto) 1 % (0-3) Basophils (%) (Auto) 0 % (0-3) Neutrophils # (Auto) 7.0 x10^3/uL (1.8-7.7) Lymphocytes # (Auto) 1.9 x10^3/uL (1.0-4.8) Monocytes # (Auto) 0.6 x10^3/uL (0.0-1.1) Eosinophils # (Auto) 0.1 x10^3/uL (0.0-0.7) Basophils # (Auto) 0.0 x10^3/uL (0.0-0.2) Prothrombin Time 12.8 SEC (11.7-14.0) Prothromb Time International Ratio 1.0 (0.8-1.1) Activated Partial Thromboplast Time 28 SEC (24-38) Sodium Level 141 mmol/L (136-145) 140 mmol/L (136-145) Potassium Level 3.7 mmol/L (3.5-5.1) 3.6 mmol/L (3.5-5.1) Chloride Level 102 mmol/L (98-107) 102 mmol/L (98-107) Carbon Dioxide Level 21 mmol/L (21-32) 30 mmol/L (21-32) Anion Gap 18 (6-14) 8 (6-14) Blood Urea Nitrogen 22 mg/dL (7-20) 22 mg/dL (7-20) Creatinine 1.2 mg/dL (0.6-1.0) 0.9 mg/dL (0.6-1.0) Estimated GFR (Cockcroft-Gault) 43.6 60.7 BUN/Creatinine Ratio 18 (6-20) Glucose Level 106 mg/dL (70-99) 123 mg/dL (70-99) Calcium Level 9.4 mg/dL (8.5-10.1) 9.1 mg/dL (8.5-10.1) Magnesium Level 1.4 mg/dL (1.8-2.4) 2.4 mg/dL (1.8-2.4) Total Bilirubin 0.2 mg/dL (0.2-1.0) Aspartate Amino Transf (AST/SGOT) 30 U/L (15-37) Alanine Aminotransferase (ALT/SGPT) 30 U/L (14-59) Alkaline Phosphatase 62 U/L (46-116) Total Protein 7.1 g/dL (6.4-8.2) Albumin 3.7 g/dL (3.4-5.0) Albumin/Globulin Ratio 1.1 (1.0-1.7) SARS-CoV-2 Antigen (Rapid) Negative (NEGATIVE) 25-Hydroxy Vitamin D Total 20.5 ng/mL (30-100) Test 01/30/20 07:51 Glucose (Fingerstick) 116 mg/dL (70-99) Images Images PATIENT: JAYLON OGLESBY ACCOUNT: [id number] : 1940 LOCATION: ER AGE: 79 SEX: F EXAM STATUS: REG ER ORD. PHYSICIAN: NANCI ZELAYA DO REASON: pain s/p fall PROCEDURE: HIP LEFT 2V WITH PELVIS HIP LEFT 2V WITH PELVIS History: Reason: pain s/p fall / Spl. Instructions: / History: Technique: AP view the pelvis and 2 additional views of the left hip. Comparison: October 02, 2019 Findings: Acute left femoral neck fracture with superior displacement. No dislocation. Lower lumbar spondylosis. Impression: 1. Acute displaced left femoral neck fracture. Electronically signed by: Liam Bach DO (01/29/2020 7:53 PM) [facility] DICTATED and SIGNED BY: LIAM BACH DO DATE: 01/29/201952 Assessment/Plan Assessment/Plan 79-year-old female patient with a fall at home landing onto her left side and receiving an acute left femoral neck fracture. Patient is unable to move her leg without significant pain. Left leg is shortened and externally rotated. Patient has a nickel allergy and will need specific orthopedic instrumentation for fixation. Patient may have diet per admitting physician today but will will be n.p.o. after midnight. Pain control and control of nausea at this point. [employer] Jan 30, 2020 10:41
[2020-01-30] MEDS ORDERED: ONDANSETRON PF 4 MG/2 ML VIAL. IVP PRN (11:00)
[2020-01-30] MEDS ORDERED: ENOXAPARIN 40 MG/0.4 ML SYRINGE. SQ SCH (11:00)
[2020-01-30] MEDS ORDERED: DEXTROSE 50% 25 GM / 50ML DISP.SYRIN. IV PRN (11:15)
--- NOTE | 2020-01-30 11:18 | PDOC1 ---
History and Physical Date of Admission Date of Admission DATE: 01/30/20 TIME: 10:56 Identification/Chief Complaint Chief Complaint Left hip fracture Source Source: Caregiver, Patient History of Present Illness History of Present Illness Patient is a 79-year-old female with past medical history of acoustical neuroma, who presents to the ER for evaluation after suffering a fall from standing at home on the date of admission. Patient reports sharp left hip pain, 10/10, aggravated by movement. She was at home with her daughter, reports recurrent bouts of intermittent dizziness and over 25 falls at home over the past year. Patient does admit to some associated mild nausea. She denies any chest pain, cough, or shortness of breath. Past Medical History Cardiovascular: HTN GI: GERD, Other Endocrine: Diabetes Past Surgical History Past Surgical History: Appendectomy, Total knee replacement, Hysterectomy Family History Family History: Heart Disease Social History Smoke: No ALCOHOL: none Drugs: None Current Problem List Problem List Problems Medical Problems: (1) Hypomagnesemia Status: Acute (2) Left displaced femoral neck fracture Status: Acute Current Medications Current Medications Current Medications Fentanyl Citrate (Fentanyl 2ml Vial) 50 mcg 1X ONCE IVP Last administered on 01/29/20at 19:04; Start 01/29/20 at 18:45; Stop 01/29/20 at 18:47; Status DC Ondansetron HCl (Zofran) 4 mg 1X ONCE IVP Last administered on 01/29/20at 19:03; Start 01/29/20 at 18:45; Stop 01/29/20 at 18:47; Status DC Diphenhydramine HCl (Benadryl) 25 mg 1X ONCE IVP ; Start 01/29/20 at 20:15; Stop 01/29/20 at 20:33; Status DC Metoclopramide HCl (Reglan Vial) 10 mg 1X ONCE IVP Last administered on 01/29/20at 20:40; Start 01/29/20 at 20:15; Stop 01/29/20 at 20:16; Status DC Hydromorphone HCl (Dilaudid) 0.5 mg 1X ONCE IVP Last administered on 01/29/20at 20:40; Start 01/29/20 at 20:45; Stop 01/29/20 at 20:46; Status DC Ondansetron HCl (Zofran) 4 mg PRN Q8HRS PRN IV NAUSEA/VOMITING; Start 01/29/20 at 20:45; Stop 01/29/20 at 21:30; Status DC Hydromorphone HCl (Dilaudid) 0.5 mg PRN Q4HRS PRN IVP PAIN Last administered on 01/30/20at 07:40; Start 01/29/20 at 20:45 Insulin Human Lispro (HumaLOG) 0-5 UNITS TIDWMEALS SQ ; Start 01/30/20 at 08:00 Dextrose (Dextrose 50%-Water Syringe) 12.5 gm PRN Q15MIN PRN IV SEE COMMENTS; Start 01/29/20 at 20:45 Magnesium Sulfate 50 ml @ 25 mls/hr 1X ONCE IV Last administered on 01/29/20at 23:45; Start 01/29/20 at 21:15; Stop 01/29/20 at 23:14; Status DC Hydromorphone HCl (Dilaudid) 0.5 mg 1X ONCE IVP Last administered on 01/29/20at 23:44; Start 01/29/20 at 22:00; Stop 01/29/20 at 22:01; Status DC Ondansetron HCl (Zofran) 4 mg PRN Q4HRS PRN IV NAUSEA/VOMITING 1ST CHOICE Last administered on 01/30/20at 00:37; Start 01/29/20 at 21:30 Acetaminophen (Tylenol) 650 mg PRN Q6HRS PRN PO MILD PAIN / TEMP > 100.3'F; Start 01/29/20 at 21:30 Atorvastatin Calcium (Lipitor) 10 mg HS PO Last administered on 01/29/20at 23:45; Start 01/29/20 at 22:00 Losartan Potassium (Cozaar) 100 mg DAILY PO ; Start 01/30/20 at 09:00 Pantoprazole Sodium (Protonix) 40 mg DAILYAC PO ; Start 01/30/20 at 07:30 Labetalol HCl (Normodyne Iv Push) 10 mg PRN Q2HR PRN IVP HYPERTENSION; Start 01/29/20 at 21:30 Tramadol HCl (Ultram) 50 mg PRN Q6HRS PRN PO MODERATE PAIN 4-6 Last administered on 01/30/20at 03:22; Start 01/29/20 at 21:30 Ropivacaine 53.3 ml/Epinephrine HCl 0.6 mg/ Morphine Sulfate 5 mg/Sodium Chloride 100 ml @ 100 mls/hr 1X ONCE INT ART ; Start 01/30/20 at 08:00; Stop 01/30/20 at 08:59; Status DC Rocuronium [place] (Zemuron) 50 mg STK-MED ONCE .ROUTE ; Start 01/30/20 at 09:16; Stop 01/30/20 at 09:16; Status DC Fentanyl Citrate (Fentanyl 2ml Vial) 100 mcg STK-MED ONCE .ROUTE ; Start 01/30/20 at 09:16; Stop 01/30/20 at 09:16; Status DC Propofol (Diprivan) 200 mg STK-MED ONCE IV ; Start 01/30/20 at 09:16; Stop 01/30/20 at 09:16; Status DC Dexamethasone Sodium Phosphate (Decadron) 4 mg STK-MED ONCE .ROUTE ; Start 01/30/20 at 09:16; Stop 01/30/20 at 09:16; Status DC Ondansetron HCl (Zofran) 4 mg STK-MED ONCE .ROUTE ; Start 01/30/20 at 09:16; Stop 01/30/20 at 09:16; Status DC Lidocaine HCl (Lidocaine Pf 2% Vial) 5 ml STK-MED ONCE .ROUTE ; Start 01/30/20 at 09:16; Stop 01/30/20 at 09:16; Status DC Sodium Chloride 1,000 ml @ 75 mls/hr [id number] IV ; Start 01/30/20 at 11:00 Oxycodone/ Acetaminophen (Percocet 5/325) 1 tab PRN Q4HRS PRN PO PAIN; Start 01/30/20 at 11:00; Status UNV Ondansetron HCl (Zofran) 4 mg PRN Q6HRS PRN IVP NAUSEA/VOMITING; Start 01/30/20 at 11:00; Status UNV Docusate Sodium (Colace) 100 mg BID PO ; Start 01/30/20 at 21:00; Status UNV Active Scripts Active Cyclobenzaprine Hcl 5 Mg Tablet 1 Tab PO TID PRN PRN Reported Aspirin Ec (Aspirin) 325 Mg Tablet.dr 1 Tab PO BID Ferrous Sulfate 325 Mg Tablet 1 Tab PO BID Losartan Potassium 100 Mg Tablet 100 Mg PO DAILY Atorvastatin Calcium 10 Mg Tablet 10 Mg PO HS LAST DOSE GIVEN: DATE:08/04/17 TIME:9:00 p.m. next dose is tonight Omeprazole 40 Mg Capsule.dr 40 Mg PO DAILY LAST DOSE GIVEN: DATE:03/19/17 TIME:7:30 a.m. Metformin Hcl 1,000 Mg Tablet 1,000 Mg PO BIDWMEALS LAST DOSE GIVEN: DATE:03/19/17 TIME:12:00 p.m. Hydrochlorothiazide Tablet (Hydrochlorothiazide) 50 Mg Tablet 25 Mg PO DAILY Meds not given this hospital admission. May resume home medications as approved by Physician. Monitor BP at home Allergies Allergies: Coded Allergies: gold Au 198 (Verified Allergy, Intermediate, Swelling, 01/29/20) nickel (Verified Allergy, Intermediate, Swelling, 01/29/20) silver (Verified Allergy, Intermediate, Swelling, 01/29/20) Penicillins (Verified Adverse Reaction, Intermediate, 01/29/20) BLISTERS Tetracyclines (Verified Adverse Reaction, Intermediate, 01/29/20) MOUTH TURNS BRIGHT RED AND PEELS codeine (Verified Adverse Reaction, Intermediate, Nausea and Vomiting, 01/29/20) erythromycin base (Verified Adverse Reaction, Intermediate, Nausea and Vomiting, 01/29/20) morphine (Verified Adverse Reaction, Intermediate, VOMITING, 01/29/20) ROS Review of System GENERAL: No history of weight change, weakness or fevers. SKIN: No bruising, hair changes or rashes. EYES: No blurred, double or loss of vision. NOSE AND THROAT: No history of nosebleeds, hoarseness or sore throat. HEART: Denies chest pain, denies palpitations. LUNGS: Denies cough, hemoptysis, wheezing or shortness of breath. GASTROINTESTINAL: Nausea. Denies vomiting, abdominal pain. GENITOURINARY: Denies dysuria, frequency, urgency, hematuria. NEUROLOGIC: Denies history of numbness, tingling, tremor or weakness. PSYCHIATRIC: Denies anxiety, denies depression. ENDOCRINE: No history of heat or cold intolerance, polyuria or polydipsia. EXTREMITIES: Left hip pain and weakness. Physical Exam Physical Exam General: Alert, Oriented X3, Cooperative, No mild distress HEENT: PERRLA, EOMI Lungs: Clear to auscultation, Normal air movement Heart: RRR, no murmurs Cardiovascular: S1, S2 Abdomen: Normal bowel sounds, Soft, No tenderness Extremities: No clubbing, No cyanosis Skin: No rashes, No significant lesion Neuro: Normal speech, Normal tone, Sensation intact Psych/Mental Status: Mental status NL, Mood NL Vitals Vitals Vital Signs Date Time Temp Pulse Resp B/P (MAP) Pulse Ox O2 Delivery O2 Flow Rate FiO2 01/30/20 08:15 20 93 Room Air 01/30/20 07:34 98.5 71 137/52 (80) 98.5 Labs Labs Laboratory Tests Test 01/29/20 18:15 01/29/20 20:05 01/29/20 21:50 01/30/20 05:05 White Blood Count 9.6 x10^3/uL (4.0-11.0) Red Blood Count 4.44 x10^6/uL (3.50-5.40) Hemoglobin 12.9 g/dL (12.0-15.5) Hematocrit 38.8 % (36.0-47.0) Mean Corpuscular Volume 87 fL (79-100) Mean Corpuscular Hemoglobin 29 pg (25-35) Mean Corpuscular Hemoglobin Concent 33 g/dL (31-37) Red Cell Distribution Width 14.5 % (11.5-14.5) Platelet Count 162 x10^3/uL (140-400) Neutrophils (%) (Auto) 73 % (31-73) Lymphocytes (%) (Auto) 20 % (24-48) Monocytes (%) (Auto) 6 % (0-9) Eosinophils (%) (Auto) 1 % (0-3) Basophils (%) (Auto) 0 % (0-3) Neutrophils # (Auto) 7.0 x10^3/uL (1.8-7.7) Lymphocytes # (Auto) 1.9 x10^3/uL (1.0-4.8) Monocytes # (Auto) 0.6 x10^3/uL (0.0-1.1) Eosinophils # (Auto) 0.1 x10^3/uL (0.0-0.7) Basophils # (Auto) 0.0 x10^3/uL (0.0-0.2) Prothrombin Time 12.8 SEC (11.7-14.0) Prothromb Time International Ratio 1.0 (0.8-1.1) Activated Partial Thromboplast Time 28 SEC (24-38) Sodium Level 141 mmol/L (136-145) 140 mmol/L (136-145) Potassium Level 3.7 mmol/L (3.5-5.1) 3.6 mmol/L (3.5-5.1) Chloride Level 102 mmol/L (98-107) 102 mmol/L (98-107) Carbon Dioxide Level 21 mmol/L (21-32) 30 mmol/L (21-32) Anion Gap 18 (6-14) 8 (6-14) Blood Urea Nitrogen 22 mg/dL (7-20) 22 mg/dL (7-20) Creatinine 1.2 mg/dL (0.6-1.0) 0.9 mg/dL (0.6-1.0) Estimated GFR (Cockcroft-Gault) 43.6 60.7 BUN/Creatinine Ratio 18 (6-20) Glucose Level 106 mg/dL (70-99) 123 mg/dL (70-99) Calcium Level 9.4 mg/dL (8.5-10.1) 9.1 mg/dL (8.5-10.1) Magnesium Level 1.4 mg/dL (1.8-2.4) 2.4 mg/dL (1.8-2.4) Total Bilirubin 0.2 mg/dL (0.2-1.0) Aspartate Amino Transf (AST/SGOT) 30 U/L (15-37) Alanine Aminotransferase (ALT/SGPT) 30 U/L (14-59) Alkaline Phosphatase 62 U/L (46-116) Total Protein 7.1 g/dL (6.4-8.2) Albumin 3.7 g/dL (3.4-5.0) Albumin/Globulin Ratio 1.1 (1.0-1.7) SARS-CoV-2 Antigen (Rapid) Negative (NEGATIVE) 25-Hydroxy Vitamin D Total 20.5 ng/mL (30-100) Test 01/30/20 07:51 Glucose (Fingerstick) 116 mg/dL (70-99) Laboratory Tests Test 01/29/20 18:15 01/29/20 20:05 01/29/20 21:50 01/30/20 05:05 White Blood Count 9.6 x10^3/uL (4.0-11.0) Red Blood Count 4.44 x10^6/uL (3.50-5.40) Hemoglobin 12.9 g/dL (12.0-15.5) Hematocrit 38.8 % (36.0-47.0) Mean Corpuscular Volume 87 fL (79-100) Mean Corpuscular Hemoglobin 29 pg (25-35) Mean Corpuscular Hemoglobin Concent 33 g/dL (31-37) Red Cell Distribution Width 14.5 % (11.5-14.5) Platelet Count 162 x10^3/uL (140-400) Neutrophils (%) (Auto) 73 % (31-73) Lymphocytes (%) (Auto) 20 % (24-48) Monocytes (%) (Auto) 6 % (0-9) Eosinophils (%) (Auto) 1 % (0-3) Basophils (%) (Auto) 0 % (0-3) Neutrophils # (Auto) 7.0 x10^3/uL (1.8-7.7) Lymphocytes # (Auto) 1.9 x10^3/uL (1.0-4.8) Monocytes # (Auto) 0.6 x10^3/uL (0.0-1.1) Eosinophils # (Auto) 0.1 x10^3/uL (0.0-0.7) Basophils # (Auto) 0.0 x10^3/uL (0.0-0.2) Prothrombin Time 12.8 SEC (11.7-14.0) Prothromb Time International Ratio 1.0 (0.8-1.1) Activated Partial Thromboplast Time 28 SEC (24-38) Sodium Level 141 mmol/L (136-145) 140 mmol/L (136-145) Potassium Level 3.7 mmol/L (3.5-5.1) 3.6 mmol/L (3.5-5.1) Chloride Level 102 mmol/L (98-107) 102 mmol/L (98-107) Carbon Dioxide Level 21 mmol/L (21-32) 30 mmol/L (21-32) Anion Gap 18 (6-14) 8 (6-14) Blood Urea Nitrogen 22 mg/dL (7-20) 22 mg/dL (7-20) Creatinine 1.2 mg/dL (0.6-1.0) 0.9 mg/dL (0.6-1.0) Estimated GFR (Cockcroft-Gault) 43.6 60.7 BUN/Creatinine Ratio 18 (6-20) Glucose Level 106 mg/dL (70-99) 123 mg/dL (70-99) Calcium Level 9.4 mg/dL (8.5-10.1) 9.1 mg/dL (8.5-10.1) Magnesium Level 1.4 mg/dL (1.8-2.4) 2.4 mg/dL (1.8-2.4) Total Bilirubin 0.2 mg/dL (0.2-1.0) Aspartate Amino Transf (AST/SGOT) 30 U/L (15-37) Alanine Aminotransferase (ALT/SGPT) 30 U/L (14-59) Alkaline Phosphatase 62 U/L (46-116) Total Protein 7.1 g/dL (6.4-8.2) Albumin 3.7 g/dL (3.4-5.0) Albumin/Globulin Ratio 1.1 (1.0-1.7) SARS-CoV-2 Antigen (Rapid) Negative (NEGATIVE) 25-Hydroxy Vitamin D Total 20.5 ng/mL (30-100) Test 01/30/20 07:51 Glucose (Fingerstick) 116 mg/dL (70-99) Images Images HIP LEFT 2V WITH PELVIS History: Reason: pain s/p fall / Spl. Instructions: / History: Technique: AP view the pelvis and 2 additional views of the left hip. Comparison: October 02, 2019 Findings: Acute left femoral neck fracture with superior displacement. No dislocation. Lower lumbar spondylosis. Impression: 1. Acute displaced left femoral neck fracture. VTE Prophylaxis Ordered VTE Prophylaxis Devices: No VTE Pharmacological Prophylaxi: Yes Assessment/Plan Assessment/Plan Acute displaced left femoral neck fracture Vitamin D insufficiency Vasomotor nephropathy Plan: Consult orthopedic surgery IV normal saline Pain management, bowel regimen. Sliding scale insulin Vitamin D 50,000 IU p.o. weekly for 8 weeks PT/OT VTE prophylaxis ADA diet DNR, patient names her daughter as her DPOA Justifications for Admission Other Justification Left hip fracture MINGO SPARROW MD Jan 30, 2020 11:18
[2020-01-30 11:24] VITALS: BP 141/62
[2020-01-30] MEDS: LOSARTAN POTASSIUM 50 MG TABLET. PO SCH (11:24)
[2020-01-30] MEDS: DOCUSATE SODIUM 100 MG CAPSULE. PO SCH ×2 (11:24→20:49)
[2020-01-30] MEDS: oxyCODONE/APAP 5/325 1 TAB TABLET PO PRN ×2 (11:25→15:26)
[2020-01-30] MEDS: IV NORMAL SALINE 1000ML BAG 1,000 ML IV SCH (11:26)
[2020-01-30] MEDS: INSULIN LISPRO 300 UNITS/3 ML VIAL. SQ SCH ×2 (12:00→17:00)
[2020-01-30] MEDS ORDERED: CHOLECALCIFEROL (VITAMIN D3) 5,000 UNIT CAPSULE PO SCH (12:00)
[2020-01-30] MEDS ORDERED: ERGOCALCIFEROL (VITAMIN D2) 50,000 UNIT CAPSULE. PO SCH (15:00)
[2020-01-30 15:34] VITALS: BP 133/73
[2020-01-30] MEDS ORDERED: oxyCODONE/APAP 10/325 1 TAB TABLET PO PRN (16:15)
[2020-01-30 19:00] VITALS: BP 156/59
[2020-01-30] MEDS: ATORVASTATIN CALCIUM 10 MG TABLET. PO SCH (20:50)
[2020-01-30 23:00] VITALS: BP 159/56
[2020-01-31] VITALS (9 sets, daily range): BP systolic 118–173; BP diastolic 47–73
[2020-01-31] MEDS: IV NORMAL SALINE 1000ML BAG 1,000 ML IV SCH ×2 (00:01→13:40)
[2020-01-31 01:08] LABS: HEMOGLOBIN A1C 5.5 % (4.8-5.6)
[2020-01-31] MEDS: PROCHLORPERAZINE 10 MG/2 ML VIAL. IV PRN ×2 (02:45→15:57)
[2020-01-31] MEDS ORDERED: NORMAL SALINE INT ART ONE (06:00)
[2020-01-31] MEDS ORDERED: EPINEPHRINE INT ART ONE (06:00)
[2020-01-31] MEDS ORDERED: ROPIVACAINE 0.75% INT ART ONE (06:00)
[2020-01-31] MEDS ORDERED: LIDOCAINE 1% PF 2 ML VIAL. ID PRN (07:00)
[2020-01-31] MEDS ORDERED: PROCHLORPERAZINE 10 MG/2 ML VIAL. IV PRN (07:00)
[2020-01-31] MEDS ORDERED: IV RINGERS,LACTATED 1000ML 1,000 ML IV SCH (07:00)
[2020-01-31] MEDS: INSULIN LISPRO 300 UNITS/3 ML VIAL. SQ SCH ×3 (07:39→16:58)
[2020-01-31] MEDS ORDERED: LIDOCAINE 2% PF 5 ML VIAL. ONE (08:38)
[2020-01-31] MEDS ORDERED: PROPOFOL 10 MG/ML (20ML) VIAL. IV ONE ×2 (08:38→11:24)
[2020-01-31] MEDS ORDERED: fentaNYL PF VIAL 100 MCG/2 ML VIAL ONE ×2 (08:39→10:11)
[2020-01-31] MEDS ORDERED: ROCURONIUM 50 MG/5 ML VIAL. ONE (08:39)
[2020-01-31] MEDS: ONDANSETRON PF 4 MG/2 ML VIAL. IV PRN ×3 (09:07→21:31)
[2020-01-31] MEDS ORDERED: SCOPOLAMINE 1.5MG PATCH. TD ONE (10:00)
[2020-01-31] MEDS ORDERED: VANCOMYCIN 10GM VIAL for OR. ONE (10:12)
[2020-01-31] MEDS ORDERED: TOBRAMYCIN POWDER 1.2 GM VIAL. ONE (10:12)
[2020-01-31] MEDS ORDERED: VANCOMYCIN 1 GM VIAL. ONE ×2 (10:13)
[2020-01-31] MEDS ORDERED: fentaNYL PF VIAL 100 MCG/2 ML VIAL IVP PRN ×2 (10:15→11:00)
[2020-01-31] MEDS ORDERED: CLINDAMYCIN 900MG PREMIX 50 ML IV ONE ×2 (10:27→10:30)
--- NOTE | 2020-01-31 10:46 | NUR ---
SW following. Discussed with RN, pt from home with family, room air, COVID-19 negative. Pt having surgery today. Therapy to work with pt after surgery. SW will continue to follow.
[2020-01-31] MEDS ORDERED: TRANEXAMIC ACID 1,000 MG/10 ML VIAL. ONE (11:09)
[2020-01-31] MEDS ORDERED: NEOSTIGMINE METHYLSULFATE 5 MG/5 ML SYRINGE. ONE (11:24)
[2020-01-31] MEDS ORDERED: ONDANSETRON PF 4 MG/2 ML VIAL. ONE (11:24)
[2020-01-31] MEDS ORDERED: GLYCOPYRROLATE 1 MG/5 ML VIAL. ONE (11:24)
[2020-01-31] MEDS ORDERED: FAMOTIDINE 20 MG/2 ML VIAL ONE (11:24)
[2020-01-31] MEDS ORDERED: DEXAMETHASONE SOD PHOS 4 MG/ML VIAL ONE (11:24)
[2020-01-31] MEDS ORDERED: ePHEDrine PF IN SALINE 50 MG/10 ML SYRINGE. IV ONE (11:29)
[2020-01-31] MEDS ORDERED: PHENYLEPHRINE in 0.9% NACL PF 1 MG/10 ML SYRINGE. IV ONE (11:45)
[2020-01-31] MEDS ORDERED: SEVOFLURANE 61 TO 120 MINUTES. IH ONE (12:01)
--- NOTE | 2020-01-31 12:01 | PDOC4 ---
Operative Note Operative Note Date of Procedure: January 31, 2020 Pre-Op Diagnosis: Displaced mid cervical fracture of left femur, initial encounter for closed fracture S72.032A Post-Op Diagnosis: same Procedure: left hip open treatment of femoral fracture, proximal end, neck, prosthetic replacement, CPT 40181 Anesthesia Type: General Surgeon: Caridad Greene MD Printing Mechanist: DEIDRE Morales EBL: 100 mL Specimens Obtained: left femoral head Complications: None Drains: None Implants: Means & Nephew size 12 Synergy porous femoral component (titanium alloy), tandem unipolar 12/14 taper sleeve +0 mm (titanium alloy), Oxinium unipolar head 48 mm outer diameter (zirconium alloy) INDICATION FOR PROCEDURE: The patient is a 79-year-old woman who fell, fracturing the left hip. X-rays show an unstable displaced left femoral neck fracture. The patient and I and the patients family discussed the risks, benefits and alternatives of treatment. One alternative for treatment is bedrest, which I generally do not recommend. I recommended a cemented bipolar arthroplasty, and I talked to them about the potential risks of this, including bleeding, infection, blood clots, dislocation, leg length discrepancy or other potential surgical or anesthetic complications. All of their questions were answered about surgery and they desired to proceed. A written consent was obtained. The patient has a nickel allergy, and several other allergies. The usual implants for this procedure are cobalt chrome with significant amount of nickel, but in her case I delayed the surgery for one day, so that we could use implants which are as close to nickel-free as possible. PROCEDURE IN DETAIL: The patient was identified in the preoperative holding a blanca. The correct left hip was marked by me. The patient was taken to the operating room where a general anesthetic was used. Preoperative antibiotics were given intravenously. The patient was positioned laterally using a Stulberg hip positioner and the bony prominences of the nonoperative leg were well padded. A time-out procedure was performed. All of the operating team wore the personal ventilated exhaust scrub suits. The left hip and limb were thoroughly washed with chlorhexidine solution, dried, and then prepared with ChloraPrep solution using sterile technique. Sterile draping was performed, using a sterile Ioban hip drape and an impervious stockinette such that the skin was entirely covered. A posterior approach to the left hip was used. Sharp dissection was used. Bovie electrocautery was used for hemostasis. Gelpi retractors were placed. Sharp dissection was used and the fascia was exposed. The fascia was divided sharply and then a Charnley retractor was placed. My bilingual teacher assistant internally rotated the hip and I divided the short external rotators off the posterior aspect of the hip. The Charnley retractor was placed in a manner to protect the sciatic nerve with the short external rotators. The capsule was divided in an inverted T fashion. The fracture was identified. The neck was recut with a saw. The neck fragment was removed. The head was removed with a corkscrew and measured using templates. The acetabulum was cleared of bony fragments. Traction sutures were placed in the capsule. The lateral aspect of the cut femoral neck was exposed. A box osteotome was used to enlarge the entry, at the lateral cortex of the femoral neck. A manual T-handle canal finder was used first, followed by sequential power reaming based on x-ray sizing and intramedullary bone chatter. Sequential broaching was then performed and then the calcar reamer was used to ream the neck on the final broach. Different head and neck length trials were used until satisfactory length and stability were achieved in full extension, hip flexion of 90 degrees, and internal rotation. The trial components were removed, and the canal was irrigated thoroughly with the [place] InterPulse device, and then dried. The final implants were opened based on the trial sizing. The porous-coated final implant was tamped into place at the previously marked location on the neck. The final head assembly was tamped onto the Manuel taper. The hip was reduced a final time with my bilingual teacher assistant applying longitudinal traction and rotation, while I guided the head into the acetabulum. A final check was made of limb length and stability in multiple positions. Copious irri gation was used. A periarticular injection was used. No drains were used. The capsule was closed with #2 Ethibond suture. One gram of powdered Vancomycin was used during the closure. The fascia was closed with #2 Vicryl suture by me. Next, #2-0 Vicryl suture was used in the subcutaneous tissues by my bilingual teacher assistant, and dora were placed in the skin by my bilingual teacher assistant. Acticoat and a ERICA single use negative pressure dressing were used. The patient was then transferred carefully back to a hospital bed. An abduction pillow was used. The patient tolerated the procedure well. Needle and sponge counts were correct. There were no apparent complications. CARIDAD GREENE MD Jan 31, 2020 12:01
[2020-01-31] MEDS ORDERED: POLYETHYLENE GLYCOL 3350 17 GM PACKET. PO PRN (12:15)
[2020-01-31] MEDS ORDERED: ONDANSETRON PF 4 MG/2 ML VIAL. IVP PRN (12:15)
[2020-01-31] MEDS ORDERED: DEXTROSE 50% 25 GM / 50ML DISP.SYRIN. IV PRN (12:15)
--- NOTE | 2020-01-31 12:57 | PDOC ---
[facility] PROGRESS NOTE Date of Service DOS: DATE: 01/31/20 TIME: 12:57 Chief Complaint Chief Complaint Left hip fracture History of Present Illness History of Present Illness Patient status post open reduction internal fixation of left femoral neck. Discussed with RN, pain management, VTE prophylaxis. Vitals/I&O Vitals/I&O: Vital Signs Date Time Temp Pulse Resp B/P (MAP) Pulse Ox O2 Delivery O2 Flow Rate FiO2 01/31/20 10:32 78 20 180/75 95 Room Air 01/31/20 10:00 98.3 98.3 I & O 01/30/20 01/30/20 01/31/20 15:00 23:00 07:00 Intake Total 200 ml 150 ml 1000 ml Output Total 300 ml 250 ml 300 ml Balance -100 ml -100 ml 700 ml Physical Exam General: Alert, Oriented X3, Cooperative, severe distress Heart: Regular rate Lungs: Other (Breathing comfortably on room air) Abdomen: Normal bowel sounds Extremities: No edema Skin: No rashes Labs Labs: Laboratory Tests Test 01/30/20 18:09 01/30/20 20:12 01/31/20 07:36 01/31/20 10:28 Glucose (Fingerstick) 105 mg/dL (70-99) 112 mg/dL (70-99) 101 mg/dL (70-99) 98 mg/dL (70-99) Assessment and Plan Assessmemt and Plan Problems Medical Problems: (1) Hypomagnesemia Status: Acute (2) Left displaced femoral neck fracture Status: Acute Comment Review of Relevant I have reviewed the following items alla (where applicable) has been applied. Medications: Current Medications Medications (Trade) Dose Ordered Sig/Jannte Route PRN Reason Start Time Stop Time Status Last Admin Dose Admin Prochlorperazine Edisylate (Compazine) 5 mg PACU PRN PRN IV NAUSEA, MRX1 01/31/20 07:00 01/31/20 18:00 01/31/20 10:14 Ergocalciferol (Vitamin D2) 50,000 unit WEEKLY PO 01/30/20 15:00 01/31/20 12:29 DC 01/30/20 15:27 Ropivacaine 53.3 ml/Epinephrine HCl 0.6 mg/Sodium Chloride 95 ml @ 100 mls/hr 1X ONCE INT ART 01/31/20 06:00 01/31/20 06:56 DC 01/31/20 11:20 Prochlorperazine Edisylate (Compazine) 10 mg PRN Q6HRS PRN IV NAUSEA/VOMITING 2ND CHOICE 01/31/20 00:45 01/31/20 02:45 Scopolamine (Transderm-Scop) 1 patch 1X ONCE TD 01/31/20 10:00 01/31/20 10:01 DC 01/31/20 10:04 Fentanyl Citrate (Fentanyl 2ml Vial) 50 mcg PRN Q10MIN PRN IVP pain 01/31/20 10:15 01/31/20 20:00 01/31/20 10:15 Vancomycin HCl (Vancomycin) 1 gm STK-MED ONCE .ROUTE 01/31/20 10:13 01/31/20 10:13 DC 01/31/20 11:48 Clindamycin Phosphate 50 ml @ 100 mls/hr 1X ONCE IV 01/31/20 10:30 01/31/20 11:00 DC 01/31/20 10:30 Justifications for Admission Other Justification Left hip fracture MINGO SPARROW MD Jan 31, 2020 12:57
--- NOTE | 2020-01-31 14:15 | RAD ---
EXAMINATION: HIP LEFT 1 VIEW WITH PELVIS CLINICAL HISTORY: Postop follow-up TECHNIQUE: HIP LEFT 1 VIEW WITH PELVIS Number of images/views: 4 COMPARISON: 01/29/2020 FINDINGS: Interval left hip hemiarthroplasty in satisfactory alignment with no evidence of hardware complication. Expected postsurgical changes in the surrounding soft tissues including mild soft tissue emphysema and overlying skin closure dora. Mild degenerative changes in the right hip incompletely evaluated. Pubic symphysis and SI joints maintained. Partially visualized lumbar degenerative changes. No acute fracture. IMPRESSION: Normal postoperative findings status post left hip hemiarthroplasty. Electronically signed by: Nathan Cline DO (01/31/2020 2:12 PM) [id number]
[2020-01-31] MEDS: PANTOPRAZOLE 40 MG TABLET.DR. PO SCH (15:16)
[2020-01-31] MEDS: LOSARTAN POTASSIUM 50 MG TABLET. PO SCH (15:17)
[2020-01-31] MEDS: DOCUSATE SODIUM 100 MG CAPSULE. PO SCH ×2 (15:17→21:24)
[2020-01-31] MEDS: CLINDAMYCIN 900MG PREMIX 50 ML IV SCH ×2 (15:18→21:25)
[2020-01-31] MEDS: IV 1/2 NORMAL SALINE 1,000 ML IV SCH (15:18)
[2020-01-31] MEDS: fentaNYL PF VIAL 100 MCG/2 ML VIAL IVP PRN ×3 (18:11→23:39)
[2020-01-31] MEDS: ATORVASTATIN CALCIUM 10 MG TABLET. PO SCH (21:24)
[2020-01-31] MEDS: ASPIRIN ENTERIC COATED 325 MG TABLET.DR. PO SCH (21:24)
[2020-01-31] MEDS: ENOXAPARIN 40 MG/0.4 ML SYRINGE. SQ SCH (21:25)
[2020-02-01] MEDS: IV 1/2 NORMAL SALINE 1,000 ML IV SCH ×2 (01:21→08:40)
[2020-02-01] MEDS: fentaNYL PF VIAL 100 MCG/2 ML VIAL IVP PRN (02:40)
[2020-02-01] MEDS: IV NORMAL SALINE 1000ML BAG 1,000 ML IV SCH ×2 (03:00→16:20)
[2020-02-01] MEDS: CLINDAMYCIN 900MG PREMIX 50 ML IV SCH (03:29)
[2020-02-01 03:31] VITALS: BP 179/59
[2020-02-01] MEDS: oxyCODONE IR 5 MG TABLET PO PRN ×3 (03:57→23:48)
[2020-02-01] MEDS ORDERED: MAGNESIUM HYDROXIDE 2,400 MG/30 ML ORAL.SUSP. PO PRN (06:00)
[2020-02-01 06:20] LABS: BASO % 0 % (0-3); EOS # 0.1 x10^3/uL (0.0-0.7); EOS % 1 % (0-3); HEMATOCRIT 31.8 % (36.0-47.0); HEMOGLOBIN 10.7 g/dL (12.0-15.5); LYMPH % 10 % (24-48); MEAN CORPUSCULAR HEMOGLOBIN 29 pg (25-35); MEAN CORPUSCULAR HGB CONC 34 g/dL (31-37); MEAN CORPUSCULAR VOLUME 87 fL (79-100); MONO # 0.9 x10^3/uL (0.0-1.1); MONO % 9 % (0-9); NEUT # 7.8 x10^3/uL (1.8-7.7); NEUT % 80 % (31-73); PLATELET COUNT 124 x10^3/uL (140-400); RED BLOOD COUNT 3.64 x10^6/uL (3.50-5.40); RED CELL DISTRIBUTION WIDTH 14.6 % (11.5-14.5); WHITE BLOOD COUNT 9.7 x10^3/uL (4.0-11.0)
[2020-02-01 06:40] LABS: CALCIUM 8.3 mg/dL (8.5-10.1); CREATININE 0.7 mg/dL (0.6-1.0); GFR 81.1; POTASSIUM 3.2 mmol/L (3.5-5.1)
[2020-02-01 07:00] VITALS: BP 161/52
[2020-02-01] MEDS: PANTOPRAZOLE 40 MG TABLET.DR. PO SCH (07:29)
[2020-02-01] MEDS: INSULIN LISPRO 300 UNITS/3 ML VIAL. SQ SCH ×3 (07:47→17:00)
[2020-02-01] MEDS ORDERED: ERGOCALCIFEROL (VITAMIN D2) 50,000 UNIT CAPSULE. PO SCH (09:00)
[2020-02-01] MEDS: CHOLECALCIFEROL (VITAMIN D3) 5,000 UNIT CAPSULE PO SCH (09:41)
[2020-02-01] MEDS: SENNOSIDES/DOCUSATE 8.6/50MG TABLET. PO SCH (09:42)
[2020-02-01] MEDS: MULTIVITAMIN with MINERAL TABLET. PO SCH (09:42)
[2020-02-01] MEDS: DOCUSATE SODIUM 100 MG CAPSULE. PO SCH ×2 (09:42→23:48)
[2020-02-01] MEDS: LOSARTAN POTASSIUM 50 MG TABLET. PO SCH (09:42)
[2020-02-01] MEDS: ASPIRIN ENTERIC COATED 325 MG TABLET.DR. PO SCH ×2 (09:42→21:00)
--- NOTE | 2020-02-01 10:01 | NUR ---
[facility] following. Discussed with RN, PT/OT pending as pt was in surgery yesterday. [facility] will awaiting therapy determination. Pt is COVID-19 negative, has had 3 midnights if is requiring SNU. [facility] will continue to follow. Addendum: 02/01/20 at 1052 by SHERWIN CEE [facility] met with pt and pt's daughter, Gladys. PT/OT recommending acute rehab, Gladys wants to be able to visit with her mom whilst in rehab - asked where is allowing visitors. [facility] is allowing one visitor per patient a day. Gladys would like referral sent to [facility]. [facility] faxed referral, awaiting acceptance decision and determination of discharge date. [facility] will continue to follow. Addendum: 02/01/20 at 1221 by SHERWIN CEE Pt accepted at [facility]. RN and pt's daughter notified. Anticipate discharge tomorrow or Wednesday. SW will continue to follow.
[2020-02-01 10:55] VITALS: BP 137/51
[2020-02-01 11:51] LABS: HEMATOCRIT 31.6 % (36.0-47.0); HEMOGLOBIN 10.5 g/dL (12.0-15.5)
[2020-02-01 15:00] VITALS: BP 145/51
--- NOTE | 2020-02-01 15:29 | PDOC ---
[facility] PROGRESS NOTE Date of Service DOS: DATE: 02/01/20 TIME: 15:26 Chief Complaint Chief Complaint Left hip fracture History of Present Illness History of Present Illness Patient status post open reduction internal fixation 01/30 of left femoral neck. She denies significant hip pain, pain control with medication. She denies chest pain, fever, shortness of breath. Vitals/I&O Vitals/I&O: Vital Signs Date Time Temp Pulse Resp B/P (MAP) Pulse Ox O2 Delivery O2 Flow Rate FiO2 02/01/20 10:55 98.0 70 18 137/51 (79) 96 98.0 02/01/20 08:39 Room Air 01/31/20 13:15 2 I & O 01/31/20 01/31/20 02/01/20 15:00 23:00 07:00 Intake Total 1300 ml 170 ml 150 ml Output Total 250 ml 450 ml 650 ml Balance 1050 ml -280 ml -500 ml Physical Exam General: Alert, Oriented X3, Cooperative, severe distress Heart: Regular rate Lungs: Other (Breathing comfortably on room air) Abdomen: Normal bowel sounds Extremities: No edema Skin: No rashes Labs Labs: Laboratory Tests Test 01/31/20 16:52 01/31/20 20:52 02/01/20 05:05 02/01/20 07:37 Glucose (Fingerstick) 145 mg/dL (70-99) 119 mg/dL (70-99) 118 mg/dL (70-99) White Blood Count 9.7 x10^3/uL (4.0-11.0) Red Blood Count 3.64 x10^6/uL (3.50-5.40) Hemoglobin 10.7 g/dL (12.0-15.5) Hematocrit 31.8 % (36.0-47.0) Mean Corpuscular Volume 87 fL (79-100) Mean Corpuscular Hemoglobin 29 pg (25-35) Mean Corpuscular Hemoglobin Concent 34 g/dL (31-37) Red Cell Distribution Width 14.6 % (11.5-14.5) Platelet Count 124 x10^3/uL (140-400) Neutrophils (%) (Auto) 80 % (31-73) Lymphocytes (%) (Auto) 10 % (24-48) Monocytes (%) (Auto) 9 % (0-9) Eosinophils (%) (Auto) 1 % (0-3) Basophils (%) (Auto) 0 % (0-3) Neutrophils # (Auto) 7.8 x10^3/uL (1.8-7.7) Lymphocytes # (Auto) 1.0 x10^3/uL (1.0-4.8) Monocytes # (Auto) 0.9 x10^3/uL (0.0-1.1) Eosinophils # (Auto) 0.1 x10^3/uL (0.0-0.7) Basophils # (Auto) 0.0 x10^3/uL (0.0-0.2) Sodium Level 135 mmol/L (136-145) Potassium Level 3.2 mmol/L (3.5-5.1) Chloride Level 101 mmol/L (98-107) Carbon Dioxide Level 28 mmol/L (21-32) Anion Gap 6 (6-14) Blood Urea Nitrogen 12 mg/dL (7-20) Creatinine 0.7 mg/dL (0.6-1.0) Estimated GFR (Cockcroft-Gault) 81.1 Glucose Level 119 mg/dL (70-99) Calcium Level 8.3 mg/dL (8.5-10.1) Test 02/01/20 11:45 02/01/20 11:47 Hemoglobin 10.5 g/dL (12.0-15.5) Hematocrit 31.6 % (36.0-47.0) Mean Corpuscular Hemoglobin Concent 33 g/dL (31-37) Glucose (Fingerstick) 129 mg/dL (70-99) Review of Systems Review of Systems: HEART: Denies chest pain, denies palpitations. LUNGS: Denies cough, hemoptysis, wheezing or shortness of breath. GASTROINTESTINAL: Nausea. Denies vomiting, abdominal pain. NEUROLOGIC: Denies history of numbness, tingling, tremor or weakness. EXTREMITIES: Left hip pain and weakness. Assessment and Plan Assessmemt and Plan Problems Medical Problems: (1) Hypomagnesemia Status: Acute (2) Left displaced femoral neck fracture Status: Acute VTE prophylaxis. Pain management. PT/OT. Comment Review of Relevant I have reviewed the following items alla (where applicable) has been applied. Medications: Current Medications Medications (Trade) Dose Ordered Sig/Jannet Route PRN Reason Start Time Stop Time Status Last Admin Dose Admin Multivitamins (Thera M Plus) 1 tab DAILY PO 02/01/20 09:00 02/01/20 09:42 Senna/Docusate Sodium (Senna Plus) 1 tab DAILY PO 02/01/20 09:00 02/01/20 09:42 Clindamycin Phosphate 50 ml @ 100 mls/hr Q6H IV 01/31/20 16:00 02/01/20 04:29 DC 02/01/20 03:29 Aspirin (Ecotrin) 325 mg BID PO 01/31/20 21:00 02/01/20 09:42 Ergocalciferol (Vitamin D2) 50,000 unit WEEKLY PO 02/01/20 09:00 03/07/20 09:01 02/01/20 09:41 Vitamin D (Vitamin D3) 5,000 unit DAILY PO 02/01/20 09:00 02/01/20 09:41 Enoxaparin Sodium (Lovenox 40mg Syringe) 40 mg Q24H SQ 01/31/20 20:00 01/31/20 21:25 Justifications for Admission Other Justification Left hip fracture MINGO SPARROW MD Feb 01, 2020 15:29
[2020-02-01] MEDS ORDERED: BISACODYL 10 MG SUPP.RECT. PR PRN (16:00)
[2020-02-01 19:00] VITALS: BP_SYST 133; BP_SYST 182; BP_DIAS 105; BP_DIAS 52
--- NOTE | 2020-02-01 19:57 | PDOC ---
PROGRESS NOTES Date of Service DATE: 02/01/20 TIME: 19:54 Subjective Subjective Very confused, seeing bugs and other signs of delirium. Pain was better than before surgery but something happened and now she's in more pain and the leg is rotated. Objective Vital Signs Vital Signs Date Time Temp Pulse Resp B/P (MAP) Pulse Ox O2 Delivery O2 Flow Rate FiO2 02/01/20 15:00 98.1 74 18 145/51 (82) 92 98.1 02/01/20 08:39 Room Air 01/31/20 13:15 2 Physical Exam Dressing dry. Her hip is internally rotated and shortened, definitely an abnormal appearance considering after surgery the rotation and length were normal. I suspect she's dislocated the hip. Labs Laboratory Tests Test 01/30/20 20:12 01/31/20 07:36 01/31/20 10:28 01/31/20 16:52 Glucose (Fingerstick) 112 mg/dL (70-99) 101 mg/dL (70-99) 98 mg/dL (70-99) 145 mg/dL (70-99) Test 01/31/20 20:52 02/01/20 05:05 02/01/20 07:37 02/01/20 11:45 Glucose (Fingerstick) 119 mg/dL (70-99) 118 mg/dL (70-99) White Blood Count 9.7 x10^3/uL (4.0-11.0) Red Blood Count 3.64 x10^6/uL (3.50-5.40) Hemoglobin 10.7 g/dL (12.0-15.5) 10.5 g/dL (12.0-15.5) Hematocrit 31.8 % (36.0-47.0) 31.6 % (36.0-47.0) Mean Corpuscular Volume 87 fL (79-100) Mean Corpuscular Hemoglobin 29 pg (25-35) Mean Corpuscular Hemoglobin Concent 34 g/dL (31-37) 33 g/dL (31-37) Red Cell Distribution Width 14.6 % (11.5-14.5) Platelet Count 124 x10^3/uL (140-400) Neutrophils (%) (Auto) 80 % (31-73) Lymphocytes (%) (Auto) 10 % (24-48) Monocytes (%) (Auto) 9 % (0-9) Eosinophils (%) (Auto) 1 % (0-3) Basophils (%) (Auto) 0 % (0-3) Neutrophils # (Auto) 7.8 x10^3/uL (1.8-7.7) Lymphocytes # (Auto) 1.0 x10^3/uL (1.0-4.8) Monocytes # (Auto) 0.9 x10^3/uL (0.0-1.1) Eosinophils # (Auto) 0.1 x10^3/uL (0.0-0.7) Basophils # (Auto) 0.0 x10^3/uL (0.0-0.2) Sodium Level 135 mmol/L (136-145) Potassium Level 3.2 mmol/L (3.5-5.1) Chloride Level 101 mmol/L (98-107) Carbon Dioxide Level 28 mmol/L (21-32) Anion Gap 6 (6-14) Blood Urea Nitrogen 12 mg/dL (7-20) Creatinine 0.7 mg/dL (0.6-1.0) Estimated GFR (Cockcroft-Gault) 81.1 Glucose Level 119 mg/dL (70-99) Calcium Level 8.3 mg/dL (8.5-10.1) Test 02/01/20 11:47 02/01/20 16:59 Glucose (Fingerstick) 129 mg/dL (70-99) 120 mg/dL (70-99) Laboratory Tests Test 01/31/20 20:52 02/01/20 05:05 02/01/20 07:37 02/01/20 11:45 Glucose (Fingerstick) 119 mg/dL (70-99) 118 mg/dL (70-99) White Blood Count 9.7 x10^3/uL (4.0-11.0) Red Blood Count 3.64 x10^6/uL (3.50-5.40) Hemoglobin 10.7 g/dL (12.0-15.5) 10.5 g/dL (12.0-15.5) Hematocrit 31.8 % (36.0-47.0) 31.6 % (36.0-47.0) Mean Corpuscular Volume 87 fL (79-100) Mean Corpuscular Hemoglobin 29 pg (25-35) Mean Corpuscular Hemoglobin Concent 34 g/dL (31-37) 33 g/dL (31-37) Red Cell Distribution Width 14.6 % (11.5-14.5) Platelet Count 124 x10^3/uL (140-400) Neutrophils (%) (Auto) 80 % (31-73) Lymphocytes (%) (Auto) 10 % (24-48) Monocytes (%) (Auto) 9 % (0-9) Eosinophils (%) (Auto) 1 % (0-3) Basophils (%) (Auto) 0 % (0-3) Neutrophils # (Auto) 7.8 x10^3/uL (1.8-7.7) Lymphocytes # (Auto) 1.0 x10^3/uL (1.0-4.8) Monocytes # (Auto) 0.9 x10^3/uL (0.0-1.1) Eosinophils # (Auto) 0.1 x10^3/uL (0.0-0.7) Basophils # (Auto) 0.0 x10^3/uL (0.0-0.2) Sodium Level 135 mmol/L (136-145) Potassium Level 3.2 mmol/L (3.5-5.1) Chloride Level 101 mmol/L (98-107) Carbon Dioxide Level 28 mmol/L (21-32) Anion Gap 6 (6-14) Blood Urea Nitrogen 12 mg/dL (7-20) Creatinine 0.7 mg/dL (0.6-1.0) Estimated GFR (Cockcroft-Gault) 81.1 Glucose Level 119 mg/dL (70-99) Calcium Level 8.3 mg/dL (8.5-10.1) Test 02/01/20 11:47 02/01/20 16:59 Glucose (Fingerstick) 129 mg/dL (70-99) 120 mg/dL (70-99) Imaging Report reviewed, images independently reviewed. Satisfactory unipolar arthroplasty. [facility] [address] [place], [place] [id number] IMAGING REPORT Signed PATIENT: JAYLON OGLESBY ACCOUNT: [id number] : 1940 LOCATION: 5 NORTH AGE: 79 SEX: F EXAM STATUS: ADM IN ORD. PHYSICIAN: CARIDAD CID MD REASON: postop PROCEDURE: HIP LEFT 1 VIEW WITH PELVIS EXAMINATION: HIP LEFT 1 VIEW WITH PELVIS CLINICAL HISTORY: Postop follow-up TECHNIQUE: HIP LEFT 1 VIEW WITH PELVIS Number of images/views: 4 COMPARISON: 01/29/2020 FINDINGS: Interval left hip hemiarthroplasty in satisfactory alignment with no evidence of hardware complication. Expected postsurgical changes in the surrounding soft tissues including mild soft tissue emphysema and overlying skin closure dora. Mild degenerative changes in the right hip incompletely evaluated. Pubic symphysis and SI joints maintained. Partially visualized lumbar degenerative changes. No acute fracture. IMPRESSION: Normal postoperative findings status post left hip hemiarthroplasty. Electronically signed by: Nathan Lacey DO (01/31/2020 2:12 PM) [id number] DICTATED and SIGNED BY: NATHAN LACEY DO DATE: 01/31/20 1412 Assessment Assessment POD#1 after hip arthroplasty. Hip appears deformed now. Plan Plan of Care I am ordering a new x-ray. I am concerned that she has dislocated the hip. Justicifation of Admission Dx: Justifications for Admission: Justification of Admission Dx: Yes CARIDAD CID MD Feb 01, 2020 19:57
[2020-02-01] MEDS: ENOXAPARIN 40 MG/0.4 ML SYRINGE. SQ SCH (20:00)
--- NOTE | 2020-02-01 20:21 | NUR ---
Daughter, Gladys, is called, notified of Dr Greene's visit to patient, order of xray, and potential surgery tomorrow. Dtr wants to be notified of the xray results.
--- NOTE | 2020-02-01 22:00 | NUR ---
Patient's lovenox and aspirin held r/t potential surgery in am.
[2020-02-01 23:00] VITALS: BP 149/59
[2020-02-01] MEDS: ATORVASTATIN CALCIUM 10 MG TABLET. PO SCH (23:48)
--- NOTE | 2020-02-02 02:45 | RAD ---
Examination: Frontal view the pelvis with frontal view of the left hip HISTORY: History of dislocation COMPARISON: 01/31/2020 Findings/ impression: Left hip arthroplasty in place. Mild joint space loss identified in the right hip joint likely degenerative changes. Electronically signed by: Logan Mak MD (02/02/2020 2:42 AM) [id number]
[2020-02-02 03:00] VITALS: BP 150/43
[2020-02-02 05:43] LABS: CALCIUM 8.5 mg/dL (8.5-10.1); CREATININE 0.8 mg/dL (0.6-1.0); GFR 69.6; POTASSIUM 3.1 mmol/L (3.5-5.1)
--- NOTE | 2020-02-02 05:43 | NUR ---
DtrGladys, called to obtain xray results, noted that hip does not appear to be dislocated (per radiologist), but that she should continue to be in hospital early, as Dr Greene may plan a procedure this am.
[2020-02-02 05:47] LABS: BASO % 0 % (0-3); EOS # 0.2 x10^3/uL (0.0-0.7); EOS % 3 % (0-3); HEMATOCRIT 28.6 % (36.0-47.0); HEMOGLOBIN 9.6 g/dL (12.0-15.5); LYMPH # 0.9 x10^3/uL (1.0-4.8); LYMPH % 11 % (24-48); MEAN CORPUSCULAR HEMOGLOBIN 29 pg (25-35); MEAN CORPUSCULAR HGB CONC 34 g/dL (31-37); MEAN CORPUSCULAR VOLUME 88 fL (79-100); MONO # 0.8 x10^3/uL (0.0-1.1); MONO % 10 % (0-9); NEUT # 6.3 x10^3/uL (1.8-7.7); NEUT % 77 % (31-73); PLATELET COUNT 124 x10^3/uL (140-400); RED BLOOD COUNT 3.26 x10^6/uL (3.50-5.40); RED CELL DISTRIBUTION WIDTH 15.1 % (11.5-14.5); WHITE BLOOD COUNT 8.2 x10^3/uL (4.0-11.0)
[2020-02-02 07:00] VITALS: BP 144/57
[2020-02-02] MEDS: PANTOPRAZOLE 40 MG TABLET.DR. PO SCH ×2 (07:30→14:54)
[2020-02-02] MEDS: INSULIN LISPRO 300 UNITS/3 ML VIAL. SQ SCH ×3 (08:00→17:00)
[2020-02-02] MEDS: SENNOSIDES/DOCUSATE 8.6/50MG TABLET. PO SCH ×2 (09:00→14:54)
[2020-02-02] MEDS: LOSARTAN POTASSIUM 50 MG TABLET. PO SCH ×2 (09:00→15:00)
[2020-02-02] MEDS: ASPIRIN ENTERIC COATED 325 MG TABLET.DR. PO SCH ×3 (09:00→21:00)
[2020-02-02] MEDS: MULTIVITAMIN with MINERAL TABLET. PO SCH ×2 (09:00→14:54)
[2020-02-02] MEDS: CHOLECALCIFEROL (VITAMIN D3) 5,000 UNIT CAPSULE PO SCH ×2 (09:00→14:54)
[2020-02-02] MEDS: DOCUSATE SODIUM 100 MG CAPSULE. PO SCH ×3 (09:00→21:00)
[2020-02-02] MEDS: IV 1/2 NORMAL SALINE 1,000 ML IV SCH ×2 (09:34→21:15)
[2020-02-02] MEDS: fentaNYL PF VIAL 100 MCG/2 ML VIAL IVP PRN ×3 (09:41→23:18)
--- NOTE | 2020-02-02 10:36 | NUR ---
SW following. Discussed with RN, pt very confused and delirious, had possibly rotated hip. Per RN, Dr. Greene wants to keep pt through the weekend. Pt accepted at [facility] when ready for discharge. SW will continue to follow.
[2020-02-02 11:00] VITALS: BP 165/62
[2020-02-02 15:00] VITALS: BP 146/73
--- NOTE | 2020-02-02 15:07 | PATHOLOGY ---
[facility] Accession Number: [id number] . 01 Material submitted: . hip - LEFT FEMORAL HEAD. Modifiers: left . 01 Clinical history: . LEFT DISPLACED FEMORAL NECK FRACTURE . 02 Diagnosis: Femoral head and separate segments of bone, left hip hemiarthroplasty: - Focal fragmentation of bony trabeculae and recent intertrabecular hemorrhage consistent with fracture. . (JPM:mm; 02/02/2020) [facility] 02/02/2020 1358 Local . 02 Comment: There is no evidence of malignancy. . (JPM:mm; 02/02/2020) . 02 Electronically signed: . Inder Longo MD, Pathologist NPI- [id number] . 01 Gross description: . The specimen is received in formalin, labeled "Lindsay Luther, left femoral head". Received is a femoral head measuring 4.7 x 4.7 x 4.5 cm and separately submitted fragmented femoral neck measuring 4.1 x 3.5 x 2.0 cm in aggregate dimensions. The articular surface is light lara to red-brown and smooth in appearance. Sectioning reveals yellow-lara to red-brown cut surfaces with the distal most aspect displaying a hemorrhagic appearance, consistent with fracture site. The specimen is submitted representatively in cassettes A1 and A2, following decalcification. (CAA; 02/01/2020) QAC/QAC 02/01/2020 1102 Local . 02 Pathologist provided ICD-10: S72.002A . 02 CPT . 488613, [id number] Specimen Comment: A courtesy copy of this report has been sent to [phone], [phone] Specimen Comment: [id number], , Specimen Comment: Report sent to ,DR MORAN,DR ZELAYA / DR REDDING Performed at: [address] [facility], [place] [id number] MD Norris Sánchez MD Phone: [phone] Performed at: 02 [facility] [address] [place], [place] [id number] MD Inder Longo MD Phone: [phone]
--- NOTE | 2020-02-02 18:14 | PDOC ---
[facility] PROGRESS NOTE Date of Service DOS: DATE: 02/02/20 TIME: 18:12 Chief Complaint Chief Complaint Left hip fracture Consult orthopedic surgery Status post open reduction internal fixation 01/31/2020 IV normal saline Pain management, bowel regimen. Sliding scale insulin Vitamin D 50,000 IU p.o. weekly for 8 weeks PT/OT VTE prophylaxis Discharge to rehab when clinically stable History of Present Illness History of Present Illness Patient status post open reduction internal fixation 01/30 of left femoral neck. She has some confusion/delirium postoperatively. Discussed with patient's daughter that this can be normal in certain elderly patient populations. PT when clinically stable. Vitals/I&O Vitals/I&O: Vital Signs Date Time Temp Pulse Resp B/P (MAP) Pulse Ox O2 Delivery O2 Flow Rate FiO2 02/02/20 15:00 97.9 84 18 146/73 (97) 99 Room Air 97.9 I & O 02/01/20 02/01/20 02/02/20 15:00 23:00 07:00 Intake Total 120 ml 50 ml Output Total 750 ml 700 ml Balance 120 ml -750 ml -650 ml Physical Exam General: Alert, Oriented X3, Cooperative, severe distress Heart: Regular rate Lungs: Other (Breathing comfortably on room air) Abdomen: Normal bowel sounds Extremities: No edema Skin: No rashes Labs Labs: Laboratory Tests Test 02/01/20 21:42 02/02/20 05:00 02/02/20 07:43 02/02/20 11:50 Glucose (Fingerstick) 106 mg/dL (70-99) 117 mg/dL (70-99) 93 mg/dL (70-99) White Blood Count 8.2 x10^3/uL (4.0-11.0) Red Blood Count 3.26 x10^6/uL (3.50-5.40) Hemoglobin 9.6 g/dL (12.0-15.5) Hematocrit 28.6 % (36.0-47.0) Mean Corpuscular Volume 88 fL (79-100) Mean Corpuscular Hemoglobin 29 pg (25-35) Mean Corpuscular Hemoglobin Concent 34 g/dL (31-37) Red Cell Distribution Width 15.1 % (11.5-14.5) Platelet Count 124 x10^3/uL (140-400) Neutrophils (%) (Auto) 77 % (31-73) Lymphocytes (%) (Auto) 11 % (24-48) Monocytes (%) (Auto) 10 % (0-9) Eosinophils (%) (Auto) 3 % (0-3) Basophils (%) (Auto) 0 % (0-3) Neutrophils # (Auto) 6.3 x10^3/uL (1.8-7.7) Lymphocytes # (Auto) 0.9 x10^3/uL (1.0-4.8) Monocytes # (Auto) 0.8 x10^3/uL (0.0-1.1) Eosinophils # (Auto) 0.2 x10^3/uL (0.0-0.7) Basophils # (Auto) 0.0 x10^3/uL (0.0-0.2) Sodium Level 138 mmol/L (136-145) Potassium Level 3.1 mmol/L (3.5-5.1) Chloride Level 102 mmol/L (98-107) Carbon Dioxide Level 29 mmol/L (21-32) Anion Gap 7 (6-14) Blood Urea Nitrogen 16 mg/dL (7-20) Creatinine 0.8 mg/dL (0.6-1.0) Estimated GFR (Cockcroft-Gault) 69.6 Glucose Level 117 mg/dL (70-99) Calcium Level 8.5 mg/dL (8.5-10.1) Test 02/02/20 16:53 Glucose (Fingerstick) 108 mg/dL (70-99) Review of Systems Review of Systems: Unable to obtain due to delirium Assessment and Plan Assessmemt and Plan Problems Medical Problems: (1) Hypomagnesemia Status: Acute (2) Left displaced femoral neck fracture Status: Acute Comment Review of Relevant I have reviewed the following items alla (where applicable) has been applied. Justifications for Admission Other Justification Left hip fracture MINGO SPARROW MD Feb 02, 2020 18:14
[2020-02-02 19:00] VITALS: BP 141/68
[2020-02-02] MEDS: ENOXAPARIN 40 MG/0.4 ML SYRINGE. SQ SCH (20:00)
[2020-02-02] MEDS: ATORVASTATIN CALCIUM 10 MG TABLET. PO SCH (21:00)
[2020-02-02 23:00] VITALS: BP 171/50
[2020-02-03 03:00] VITALS: BP 171/67
[2020-02-03 04:26] LABS: BASO % 0 % (0-3); EOS # 0.3 x10^3/uL (0.0-0.7); EOS % 4 % (0-3); HEMATOCRIT 27.7 % (36.0-47.0); HEMOGLOBIN 9.2 g/dL (12.0-15.5); LYMPH # 1.1 x10^3/uL (1.0-4.8); LYMPH % 15 % (24-48); MEAN CORPUSCULAR HEMOGLOBIN 29 pg (25-35); MEAN CORPUSCULAR HGB CONC 33 g/dL (31-37); MEAN CORPUSCULAR VOLUME 87 fL (79-100); MONO # 0.7 x10^3/uL (0.0-1.1); MONO % 9 % (0-9); NEUT # 5.5 x10^3/uL (1.8-7.7); NEUT % 72 % (31-73); PLATELET COUNT 134 x10^3/uL (140-400); RED BLOOD COUNT 3.17 x10^6/uL (3.50-5.40); RED CELL DISTRIBUTION WIDTH 14.8 % (11.5-14.5); WHITE BLOOD COUNT 7.7 x10^3/uL (4.0-11.0)
[2020-02-03 04:46] LABS: CALCIUM 8.5 mg/dL (8.5-10.1); CREATININE 0.7 mg/dL (0.6-1.0); GFR 81.1; POTASSIUM 3.3 mmol/L (3.5-5.1)
[2020-02-03] MEDS: IV 1/2 NORMAL SALINE 1,000 ML IV SCH ×2 (04:53→19:58)
--- NOTE | 2020-02-03 04:53 | NUR ---
Pt. pulled out own IV and doesn't want another one. She raised her voice and became verbally aggressive/abusive.
[2020-02-03 07:00] VITALS: BP 170/70
[2020-02-03] MEDS: INSULIN LISPRO 300 UNITS/3 ML VIAL. SQ SCH ×3 (08:00→17:09)
[2020-02-03] MEDS: LOSARTAN POTASSIUM 50 MG TABLET. PO SCH (08:14)
[2020-02-03] MEDS: ASPIRIN ENTERIC COATED 325 MG TABLET.DR. PO SCH ×2 (08:14→22:04)
[2020-02-03] MEDS: oxyCODONE IR 5 MG TABLET PO PRN (08:14)
[2020-02-03] MEDS: MULTIVITAMIN with MINERAL TABLET. PO SCH (08:14)
[2020-02-03] MEDS: SENNOSIDES/DOCUSATE 8.6/50MG TABLET. PO SCH (08:14)
[2020-02-03] MEDS: PANTOPRAZOLE 40 MG TABLET.DR. PO SCH (08:14)
[2020-02-03] MEDS: DOCUSATE SODIUM 100 MG CAPSULE. PO SCH ×2 (08:14→22:04)
[2020-02-03] MEDS: CHOLECALCIFEROL (VITAMIN D3) 5,000 UNIT CAPSULE PO SCH (08:15)
--- NOTE | 2020-02-03 09:11 | PDOC ---
[facility] [facility] PROGRESS NOTE Date of Service DOS: DATE: 02/03/20 TIME: 09:08 Chief Complaint Chief Complaint Left hip fracture Consult orthopedic surgery Status post open reduction internal fixation 01/31/2020 IV normal saline Pain management, bowel regimen. Sliding scale insulin Vitamin D 50,000 IU p.o. weekly for 8 weeks PT/OT VTE prophylaxis Discharge to rehab when clinically stable History of Present Illness History of Present Illness Patient status post open reduction internal fixation 01/30 of left femoral neck. Still with some postop delirium/confusion. Discussed with daughter, this appears to have cleared up slightly but still with visual hallucinations of bugs and tall man with a mejia in the corner of the room. Patient's daughter feels patient would react better to Tylenol 3. Discussed with RN, avoid all narcotics unless patient requests pain medication. Recommend PT when patient more lucid. Vitals/I&O Vitals/I&O: Vital Signs Date Time Temp Pulse Resp B/P (MAP) Pulse Ox O2 Delivery O2 Flow Rate FiO2 02/03/20 08:14 Room Air 02/03/20 08:14 71 171/67 02/03/20 03:00 97.9 18 98 97.9 I & O 02/02/20 02/02/20 02/03/20 15:00 23:00 07:00 Intake Total 450 ml 210 ml Output Total 150 ml 1100 ml Balance -150 ml 450 ml -890 ml Physical Exam General: Alert, Oriented X3, Cooperative, severe distress Heart: Regular rate Lungs: Other (Breathing comfortably on room air) Abdomen: Normal bowel sounds Extremities: No edema Skin: No rashes Labs Labs: Laboratory Tests Test 02/02/20 11:50 02/02/20 16:53 02/02/20 21:20 02/03/20 04:00 Glucose (Fingerstick) 93 mg/dL (70-99) 108 mg/dL (70-99) 124 mg/dL (70-99) White Blood Count 7.7 x10^3/uL (4.0-11.0) Red Blood Count 3.17 x10^6/uL (3.50-5.40) Hemoglobin 9.2 g/dL (12.0-15.5) Hematocrit 27.7 % (36.0-47.0) Mean Corpuscular Volume 87 fL (79-100) Mean Corpuscular Hemoglobin 29 pg (25-35) Mean Corpuscular Hemoglobin Concent 33 g/dL (31-37) Red Cell Distribution Width 14.8 % (11.5-14.5) Platelet Count 134 x10^3/uL (140-400) Neutrophils (%) (Auto) 72 % (31-73) Lymphocytes (%) (Auto) 15 % (24-48) Monocytes (%) (Auto) 9 % (0-9) Eosinophils (%) (Auto) 4 % (0-3) Basophils (%) (Auto) 0 % (0-3) Neutrophils # (Auto) 5.5 x10^3/uL (1.8-7.7) Lymphocytes # (Auto) 1.1 x10^3/uL (1.0-4.8) Monocytes # (Auto) 0.7 x10^3/uL (0.0-1.1) Eosinophils # (Auto) 0.3 x10^3/uL (0.0-0.7) Basophils # (Auto) 0.0 x10^3/uL (0.0-0.2) Sodium Level 139 mmol/L (136-145) Potassium Level 3.3 mmol/L (3.5-5.1) Chloride Level 104 mmol/L (98-107) Carbon Dioxide Level 28 mmol/L (21-32) Anion Gap 7 (6-14) Blood Urea Nitrogen 14 mg/dL (7-20) Creatinine 0.7 mg/dL (0.6-1.0) Estimated GFR (Cockcroft-Gault) 81.1 Glucose Level 119 mg/dL (70-99) Calcium Level 8.5 mg/dL (8.5-10.1) Test 02/03/20 07:46 Glucose (Fingerstick) 110 mg/dL (70-99) Review of Systems Review of Systems: Denies hip pain, denies chest pain, denies shortness of breath, denies fever. Assessment and Plan Assessmemt and Plan Problems Medical Problems: (1) Hypomagnesemia Status: Acute (2) Left displaced femoral neck fracture Status: Acute Comment Review of Relevant I have reviewed the following items alla (where applicable) has been applied. Justifications for Admission Other Justification Left hip fracture MINGO SPARROW MD Feb 03, 2020 09:11
[2020-02-03] MEDS: hydroCHLOROthiazide 25 MG TABLET PO SCH (09:26)
[2020-02-03] MEDS: FERROUS SULFATE 325 MG TABLET. PO SCH ×2 (09:26→16:59)
[2020-02-03] MEDS: oxyCODONE/APAP 5/325 1 TAB TABLET PO PRN (09:27)
[2020-02-03 11:00] VITALS: BP 135/51
[2020-02-03] MEDS ORDERED: ACETAMINOPHEN/CODEINE 300/30MG TABLET. PO PRN (13:00)
[2020-02-03 15:00] VITALS: BP 117/40
[2020-02-03] MEDS: HYDROcodone/APAP 5/325MG 1 TAB TABLET PO PRN ×2 (15:09→22:05)
[2020-02-03 19:00] VITALS: BP 135/52
[2020-02-03] MEDS ORDERED: ASPIRIN ENTERIC COATED 325 MG TABLET.DR. PO SCH (21:00)
[2020-02-03] MEDS: ATORVASTATIN CALCIUM 10 MG TABLET. PO SCH (22:04)
[2020-02-03] MEDS: CYCLOBENZAPRINE 10 MG TABLET. PO PRN (22:04)
[2020-02-03] MEDS: ENOXAPARIN 40 MG/0.4 ML SYRINGE. SQ SCH (22:05)
[2020-02-03 23:00] VITALS: BP 159/59
[2020-02-04 03:00] VITALS: BP 160/63
[2020-02-04 05:18] LABS: CALCIUM 8.6 mg/dL (8.5-10.1); CREATININE 0.8 mg/dL (0.6-1.0); GFR 69.6; POTASSIUM 3.3 mmol/L (3.5-5.1)
[2020-02-04 05:22] LABS: BASO # 0.1 x10^3/uL (0.0-0.2); BASO % 1 % (0-3); EOS # 0.3 x10^3/uL (0.0-0.7); EOS % 5 % (0-3); HEMATOCRIT 28.6 % (36.0-47.0); HEMOGLOBIN 9.4 g/dL (12.0-15.5); LYMPH # 1.9 x10^3/uL (1.0-4.8); LYMPH % 27 % (24-48); MEAN CORPUSCULAR HEMOGLOBIN 29 pg (25-35); MEAN CORPUSCULAR HGB CONC 33 g/dL (31-37); MEAN CORPUSCULAR VOLUME 88 fL (79-100); MONO # 0.6 x10^3/uL (0.0-1.1); MONO % 8 % (0-9); NEUT # 4.1 x10^3/uL (1.8-7.7); NEUT % 59 % (31-73); PLATELET COUNT 162 x10^3/uL (140-400); RED BLOOD COUNT 3.24 x10^6/uL (3.50-5.40); RED CELL DISTRIBUTION WIDTH 14.8 % (11.5-14.5); WHITE BLOOD COUNT 6.9 x10^3/uL (4.0-11.0)
[2020-02-04] MEDS: INSULIN LISPRO 300 UNITS/3 ML VIAL. SQ SCH (07:16)
[2020-02-04 07:59] VITALS: BP 171/70
--- NOTE | 2020-02-04 08:30 | PDOC ---
[facility] [facility] PROGRESS NOTE Date of Service DOS: DATE: 02/04/20 TIME: 08:24 Chief Complaint Chief Complaint Left hip fracture Consult orthopedic surgery Status post open reduction internal fixation 01/31/2020 IV normal saline Pain management, bowel regimen. Sliding scale insulin Vitamin D 50,000 IU p.o. weekly for 8 weeks PT/OT VTE prophylaxis Discharge to rehab when clinically stable History of Present Illness History of Present Illness 02/02 Patient status post open reduction internal fixation 01/30 of left femoral neck. Still with some postop delirium/confusion. Discussed with daughter, this appears to have cleared up slightly but still with visual hallucinations of bugs and tall man with a mejia in the corner of the room. Patient's daughter feels patient would react better to Tylenol 3. Discussed with RN, avoid all narcotics unless patient requests pain medication. Recommend PT when patient more lucid. 02/03 Patient's visual hallucinations have resolved. Discussed with daughter, they would like to increase pain medication and other delirium is improving. Patient reports right rib pain since admission.. Will evaluate with chest x-ray. Discussed with RN, discontinue sliding scale insulin due to hypoglycemia. Vitals/I&O Vitals/I&O: Vital Signs Date Time Temp Pulse Resp B/P (MAP) Pulse Ox O2 Delivery O2 Flow Rate FiO2 02/04/20 03:00 97.7 78 19 160/63 (95) 95 Room Air 97.7 I & O 02/03/20 02/03/20 02/04/20 15:00 23:00 07:00 Intake Total 700 ml 600 ml Output Total 0 ml Balance 700 ml 600 ml Physical Exam General: Alert, Oriented X3, Cooperative, severe distress Heart: Regular rate Lungs: Other (Breathing comfortably on room air) Abdomen: Normal bowel sounds Extremities: No edema Skin: No rashes Labs Labs: Laboratory Tests Test 02/03/20 11:56 02/03/20 16:43 02/03/20 20:30 02/04/20 04:15 Glucose (Fingerstick) 97 mg/dL (70-99) 164 mg/dL (70-99) 101 mg/dL (70-99) White Blood Count 6.9 x10^3/uL (4.0-11.0) Red Blood Count 3.24 x10^6/uL (3.50-5.40) Hemoglobin 9.4 g/dL (12.0-15.5) Hematocrit 28.6 % (36.0-47.0) Mean Corpuscular Volume 88 fL (79-100) Mean Corpuscular Hemoglobin 29 pg (25-35) Mean Corpuscular Hemoglobin Concent 33 g/dL (31-37) Red Cell Distribution Width 14.8 % (11.5-14.5) Platelet Count 162 x10^3/uL (140-400) Neutrophils (%) (Auto) 59 % (31-73) Lymphocytes (%) (Auto) 27 % (24-48) Monocytes (%) (Auto) 8 % (0-9) Eosinophils (%) (Auto) 5 % (0-3) Basophils (%) (Auto) 1 % (0-3) Neutrophils # (Auto) 4.1 x10^3/uL (1.8-7.7) Lymphocytes # (Auto) 1.9 x10^3/uL (1.0-4.8) Monocytes # (Auto) 0.6 x10^3/uL (0.0-1.1) Eosinophils # (Auto) 0.3 x10^3/uL (0.0-0.7) Basophils # (Auto) 0.1 x10^3/uL (0.0-0.2) Test 02/04/20 05:00 02/04/20 07:12 02/04/20 07:37 Sodium Level 141 mmol/L (136-145) Potassium Level 3.3 mmol/L (3.5-5.1) Chloride Level 103 mmol/L (98-107) Carbon Dioxide Level 29 mmol/L (21-32) Anion Gap 9 (6-14) Blood Urea Nitrogen 16 mg/dL (7-20) Creatinine 0.8 mg/dL (0.6-1.0) Estimated GFR (Cockcroft-Gault) 69.6 Glucose Level 99 mg/dL (70-99) Calcium Level 8.6 mg/dL (8.5-10.1) Glucose (Fingerstick) 32 mg/dL (70-99) 114 mg/dL (70-99) Review of Systems Review of Systems: Rib pain, hip pain. Denies fever, denies chest pain, denies shortness of breath. Assessment and Plan Assessmemt and Plan Problems Medical Problems: (1) Hypomagnesemia Status: Acute (2) Left displaced femoral neck fracture Status: Acute Comment Review of Relevant I have reviewed the following items alla (where applicable) has been applied. Medications: Current Medications Medications (Trade) Dose Ordered Sig/Jannet Route PRN Reason Start Time Stop Time Status Last Admin Dose Admin Ferrous Sulfate (Feosol) 325 mg BIDWMEALS PO 02/03/20 09:15 02/03/20 16:59 Cyclobenzaprine HCl (Flexeril) 10 mg PRN TID PRN PO MUSCLE SPASMS 02/03/20 09:15 02/03/20 22:04 Hydrochlorothiazide (Hydrodiuril) 25 mg DAILY PO 02/03/20 09:15 02/03/20 09:26 Acetaminophen/ Hydrocodone Bitart (Lortab 5/325) 1 tab PRN Q4HRS PRN PO MODERATE TO SEVERE PAIN 02/03/20 14:45 02/03/20 22:05 Justifications for Admission Other Justification Left hip fracture MINGO SPARROW MD Feb 04, 2020 08:30
[2020-02-04] MEDS: FERROUS SULFATE 325 MG TABLET. PO SCH ×2 (08:31→16:52)
[2020-02-04] MEDS: DOCUSATE SODIUM 100 MG CAPSULE. PO SCH ×2 (08:31→22:45)
[2020-02-04] MEDS: PANTOPRAZOLE 40 MG TABLET.DR. PO SCH (08:31)
[2020-02-04] MEDS: MULTIVITAMIN with MINERAL TABLET. PO SCH (08:31)
[2020-02-04] MEDS: SENNOSIDES/DOCUSATE 8.6/50MG TABLET. PO SCH (08:31)
[2020-02-04] MEDS: hydroCHLOROthiazide 25 MG TABLET PO SCH (08:31)
[2020-02-04] MEDS: CHOLECALCIFEROL (VITAMIN D3) 5,000 UNIT CAPSULE PO SCH (08:31)
[2020-02-04] MEDS: ASPIRIN ENTERIC COATED 325 MG TABLET.DR. PO SCH ×2 (08:31→22:46)
[2020-02-04] MEDS: LOSARTAN POTASSIUM 50 MG TABLET. PO SCH (08:32)
[2020-02-04] MEDS: IV 1/2 NORMAL SALINE 1,000 ML IV SCH ×2 (09:21→22:41)
[2020-02-04] MEDS: HYDROcodone/APAP 5/325MG 1 TAB TABLET PO PRN (09:49)
[2020-02-04 11:57] VITALS: BP 121/55
[2020-02-04] MEDS: HYDROcodone/APAP 10/325 1 TAB TABLET PO PRN ×3 (12:54→22:46)
--- NOTE | 2020-02-04 15:17 | RAD ---
Three-view right rib detail series and PA view chest x-ray Clinical indications: Right rib pain. FINDINGS: There is a nondisplaced fracture of the lateral aspect of the ninth rib. No acute infiltrate or pleural effusion or pulmonary edema or pneumothorax is seen. Sternotomy is evident. The heart size and pulmonary vasculature and mediastinum and both liberty are unremarkable. IMPRESSION: Acute nondisplaced fracture of the lateral right ninth rib. Electronically signed by: David Fernandez MD (02/04/2020 3:14 PM) [id number]
[2020-02-04 15:50] VITALS: BP 121/59
[2020-02-04 19:00] VITALS: BP 151/56
[2020-02-04] MEDS: CYCLOBENZAPRINE 10 MG TABLET. PO PRN (22:45)
[2020-02-04] MEDS: ENOXAPARIN 40 MG/0.4 ML SYRINGE. SQ SCH (22:45)
[2020-02-04] MEDS: ATORVASTATIN CALCIUM 10 MG TABLET. PO SCH (22:46)
[2020-02-04 23:00] VITALS: BP 155/57
[2020-02-05 03:00] VITALS: BP 162/54
[2020-02-05 05:10] LABS: BASO % 1 % (0-3); EOS # 0.3 x10^3/uL (0.0-0.7); EOS % 5 % (0-3); HEMATOCRIT 27.2 % (36.0-47.0); HEMOGLOBIN 9.1 g/dL (12.0-15.5); LYMPH # 1.6 x10^3/uL (1.0-4.8); LYMPH % 27 % (24-48); MEAN CORPUSCULAR HEMOGLOBIN 29 pg (25-35); MEAN CORPUSCULAR HGB CONC 33 g/dL (31-37); MEAN CORPUSCULAR VOLUME 88 fL (79-100); MONO # 0.5 x10^3/uL (0.0-1.1); MONO % 9 % (0-9); NEUT # 3.4 x10^3/uL (1.8-7.7); NEUT % 58 % (31-73); PLATELET COUNT 196 x10^3/uL (140-400); RED BLOOD COUNT 3.11 x10^6/uL (3.50-5.40); RED CELL DISTRIBUTION WIDTH 15.1 % (11.5-14.5); WHITE BLOOD COUNT 5.9 x10^3/uL (4.0-11.0)
[2020-02-05 05:41] LABS: CALCIUM 8.9 mg/dL (8.5-10.1); CREATININE 0.8 mg/dL (0.6-1.0); GFR 69.6; POTASSIUM 3.4 mmol/L (3.5-5.1)
[2020-02-05 07:05] VITALS: BP 157/66
--- NOTE | 2020-02-05 08:48 | PDOC ---
PROGRESS NOTES Date of Service: DATE: 02/05/20 TIME: 08:48 Chief Complaint Chief Complaint discharge dx Left hip fracture Consult orthopedic surgery Status post open reduction internal fixation 01/31/2020 IV normal saline Pain management, bowel regimen. Sliding scale insulin Vitamin D 50,000 IU p.o. weekly for 8 weeks PT/OT VTE prophylaxis Postop day #5 status post left hip cemented bipolar arthroplasty. Discharge to rehab 02/04 Discharge Recommendation Comments * Will need post acute rehab d/c planning 32 min History of Present Illness History of Present Illness 02/02 Patient status post open reduction internal fixation 01/30 of left femoral neck. Still with some postop delirium/confusion. Discussed with daughter, this appears to have cleared up slightly but still with visual hallucinations of bugs and tall man with a mejia in the corner of the room. Patient's daughter feels patient would react better to Tylenol 3. Discussed with RN, avoid all narcotics unless patient requests pain medication. Recommend PT when patient more lucid. 02/04 Patient's visual hallucinations have resolved. Discussed with RN, discontinue sliding scale insulin due to hypoglycemia. Vitals Vitals Vital Signs Date Time Temp Pulse Resp B/P (MAP) Pulse Ox O2 Delivery O2 Flow Rate FiO2 02/05/20 07:05 97.9 74 20 157/66 (96) 97 Room Air 97.9 Physical Exam General: Alert, Oriented X3, Cooperative, severe distress Heart: Regular rate, Normal S1, Normal S2 Lungs: Clear, Other (Breathing comfortably on room air) Abdomen: Normal bowel sounds Extremities: No clubbing, No cyanosis, No edema Skin: No rashes Labs LABS Laboratory Tests Test 02/04/20 12:02 02/04/20 17:29 02/04/20 20:01 02/05/20 04:50 Glucose (Fingerstick) 88 mg/dL (70-99) 106 mg/dL (70-99) 147 mg/dL (70-99) White Blood Count 5.9 x10^3/uL (4.0-11.0) Red Blood Count 3.11 x10^6/uL (3.50-5.40) Hemoglobin 9.1 g/dL (12.0-15.5) Hematocrit 27.2 % (36.0-47.0) Mean Corpuscular Volume 88 fL (79-100) Mean Corpuscular Hemoglobin 29 pg (25-35) Mean Corpuscular Hemoglobin Concent 33 g/dL (31-37) Red Cell Distribution Width 15.1 % (11.5-14.5) Platelet Count 196 x10^3/uL (140-400) Neutrophils (%) (Auto) 58 % (31-73) Lymphocytes (%) (Auto) 27 % (24-48) Monocytes (%) (Auto) 9 % (0-9) Eosinophils (%) (Auto) 5 % (0-3) Basophils (%) (Auto) 1 % (0-3) Neutrophils # (Auto) 3.4 x10^3/uL (1.8-7.7) Lymphocytes # (Auto) 1.6 x10^3/uL (1.0-4.8) Monocytes # (Auto) 0.5 x10^3/uL (0.0-1.1) Eosinophils # (Auto) 0.3 x10^3/uL (0.0-0.7) Basophils # (Auto) 0.0 x10^3/uL (0.0-0.2) Sodium Level 141 mmol/L (136-145) Potassium Level 3.4 mmol/L (3.5-5.1) Chloride Level 104 mmol/L (98-107) Carbon Dioxide Level 32 mmol/L (21-32) Anion Gap 5 (6-14) Blood Urea Nitrogen 17 mg/dL (7-20) Creatinine 0.8 mg/dL (0.6-1.0) Estimated GFR (Cockcroft-Gault) 69.6 Glucose Level 106 mg/dL (70-99) Calcium Level 8.9 mg/dL (8.5-10.1) Test 02/05/20 07:56 Glucose (Fingerstick) 102 mg/dL (70-99) Assessment and Plan Assessmemt and Plan Problem List (body system elements) * Impaired fnctnl mobility * Strength * Blood Pressure * Cognition * ROM * Knowledge-Precautions * Balance * Coordination * Knowledge-safe techniques * Pain Pt/caregiver agrees with plan of care/goals * Yes Patient condition at conclusion of therapy * Pt in chair * Personal alarm on * Call light in reach * PtIn no apparent distress * Pt denies further needs * Visitor with patient Communicated Patient Care With (Name, Title) * Elin OT; OMI Schneider Goal 1 - Bed Mobility Assistance Required * Supervision Goal 1 Assessment * Appropriate - Continue Goal 2 - Transfers Assistance Required * Stand-by Assistance Goal 2 - Transfer Type * Stand-Pivot Goal 2 Assessment * Appropriate - Continue Goal 3 - Ambulation Assistance Required * Min Assistance Goal 3 - Ambulation Distance * 50' Goal 3 - Ambulation Device * Roller Walker Goal 3 Assessment * Appropriate - Continue Treatment Plan * Therapeutic Exercise * Bed Mobility Training * Transfer training * Gait Training * Dynamic Balance Training Treatment Plan - Other * ed on hip precautions, Wbing restrictions Frequency of Treatment Expected * 12 visits/week Duration of Treatment Expected * 2 weeks Discharge Recommendations * Halfway Unit Discharge Recommendation - DME * Rolling Walker needed * in order to complete ADLs * and ambulation safely Discharge Recommendation Comments * Will need post acute rehab Problems Medical Problems: (1) Hypomagnesemia Status: Acute (2) Left displaced femoral neck fracture Status: Acute DPOA REVIEW 17 MIN What Is a Power of Hiv Counselor? A power of consumer attorney (POA) is a legal document giving one person (the agent or fudyjymt-im-payl) the power to act for another person (the principal). The agent can have broad legal authority or limited authority to make legal decisions about the principal's property, finances or medical care. The power of consumer attorney is frequently used in the event of a principal's illness or disability, or when the principal can't be present to sign necessary legal documents for financial transactions. A power of consumer attorney can end for a number of reasons, such as when the principal dies, the principal revokes it, a court invalidates it, the principal divorces their spouse, who happens to be the agent, or the agent can no longer carry out the outlined responsibilities. Conventional POAs lapse when the creator becomes incapacitated, but a durable POA remains in force to enable the agent to manage the creators affairs, and a springing POA comes into effect only if and when the creator of the POA becomes incapacitated. A medical or healthcare POA enables an agent to make medical decisions on behalf of an incapacitated person. Le Takeaways A power of consumer attorney (POA) is a legal document giving one person, the agent or uzjzlmso-wf-fgsc the power to act for another person, the principal. The agent can have broad legal authority or limited authority to make decisions about the principal's property, finances or medical care. The power of consumer attorney is often used when a principal becomes ill or disabled, or when they can't be present to sign necessary legal documents for financial transactions. Understanding Power of Hiv Counselor A power of consumer attorney should be considered when planning for long-term care. There are different types of POAs that fall under either a general power of consumer attorney or limited power of consumer attorney. A general power of consumer attorney acts on behalf of the principal in any and all matters, as allowed by the state. The agent under a general POA agreement may be authorized to take care of issues such as handling bank accounts, signing checks, selling property and assets like stocks, f A limited power of consumer attorney gives the agent the power to act on behalf of the principal in specific matters or events. For example, the limited POA may explicitly state that the agent is only allowed to manage the principal's usp accounts. A limited POA may also be limited to a specific period of time (e.g., if the principal will be out of the country for, say, two years). Most maldonado of consumer attorney documents allow an agent to represent the principal in all property and financial matters as long as the principals mental state of mind is good. If a situation occurs where the principal becomes incapable of making decisions for him or herself, the POA agreement would automatically end. However, someone who wants the POA to remain in effect after the persons health deteriorates would need to sign a durable power of consumer attorney (DPOA). What is an advance directive? An advance directive is a legal document that says how you want to be cared for if you are unable to make decisions. You can include what medical treatments you would want and who you would trust to make decisions for you. An advance directive can also include other legal documents. A living will is a list of treatment preferences. It can be used to indicate whether you would want cardiopulmonary resuscitation (CPR), tube feedings, a breathing machine, or certain medicines, like antibiotics. The durable power of consumer attorney for health care document identifies the person you would want to make medical decisions for you. This person is also called a proxy. Your proxy should be familiar with your values and wishes. How do I get started? You can get advance directive documents for your state from your doctor's office or from [email or web address]. Review the forms, and ask your doctor if you have any questions. Pick a person to be your proxy, and talk it over with that person. Comment Review of Relevant I have reviewed the following items alla (where applicable) has been applied. Labs Laboratory Tests Test 02/03/20 11:56 02/03/20 16:43 02/03/20 20:30 02/04/20 04:15 Glucose (Fingerstick) 97 mg/dL (70-99) 164 mg/dL (70-99) 101 mg/dL (70-99) White Blood Count 6.9 x10^3/uL (4.0-11.0) Red Blood Count 3.24 x10^6/uL (3.50-5.40) Hemoglobin 9.4 g/dL (12.0-15.5) Hematocrit 28.6 % (36.0-47.0) Mean Corpuscular Volume 88 fL (79-100) Mean Corpuscular Hemoglobin 29 pg (25-35) Mean Corpuscular Hemoglobin Concent 33 g/dL (31-37) Red Cell Distribution Width 14.8 % (11.5-14.5) Platelet Count 162 x10^3/uL (140-400) Neutrophils (%) (Auto) 59 % (31-73) Lymphocytes (%) (Auto) 27 % (24-48) Monocytes (%) (Auto) 8 % (0-9) Eosinophils (%) (Auto) 5 % (0-3) Basophils (%) (Auto) 1 % (0-3) Neutrophils # (Auto) 4.1 x10^3/uL (1.8-7.7) Lymphocytes # (Auto) 1.9 x10^3/uL (1.0-4.8) Monocytes # (Auto) 0.6 x10^3/uL (0.0-1.1) Eosinophils # (Auto) 0.3 x10^3/uL (0.0-0.7) Basophils # (Auto) 0.1 x10^3/uL (0.0-0.2) Test 02/04/20 05:00 02/04/20 07:12 02/04/20 07:37 02/04/20 12:02 Sodium Level 141 mmol/L (136-145) Potassium Level 3.3 mmol/L (3.5-5.1) Chloride Level 103 mmol/L (98-107) Carbon Dioxide Level 29 mmol/L (21-32) Anion Gap 9 (6-14) Blood Urea Nitrogen 16 mg/dL (7-20) Creatinine 0.8 mg/dL (0.6-1.0) Estimated GFR (Cockcroft-Gault) 69.6 Glucose Level 99 mg/dL (70-99) Calcium Level 8.6 mg/dL (8.5-10.1) Glucose (Fingerstick) 32 mg/dL (70-99) 114 mg/dL (70-99) 88 mg/dL (70-99) Test 02/04/20 17:29 02/04/20 20:01 02/05/20 04:50 02/05/20 07:56 Glucose (Fingerstick) 106 mg/dL (70-99) 147 mg/dL (70-99) 102 mg/dL (70-99) White Blood Count 5.9 x10^3/uL (4.0-11.0) Red Blood Count 3.11 x10^6/uL (3.50-5.40) Hemoglobin 9.1 g/dL (12.0-15.5) Hematocrit 27.2 % (36.0-47.0) Mean Corpuscular Volume 88 fL (79-100) Mean Corpuscular Hemoglobin 29 pg (25-35) Mean Corpuscular Hemoglobin Concent 33 g/dL (31-37) Red Cell Distribution Width 15.1 % (11.5-14.5) Platelet Count 196 x10^3/uL (140-400) Neutrophils (%) (Auto) 58 % (31-73) Lymphocytes (%) (Auto) 27 % (24-48) Monocytes (%) (Auto) 9 % (0-9) Eosinophils (%) (Auto) 5 % (0-3) Basophils (%) (Auto) 1 % (0-3) Neutrophils # (Auto) 3.4 x10^3/uL (1.8-7.7) Lymphocytes # (Auto) 1.6 x10^3/uL (1.0-4.8) Monocytes # (Auto) 0.5 x10^3/uL (0.0-1.1) Eosinophils # (Auto) 0.3 x10^3/uL (0.0-0.7) Basophils # (Auto) 0.0 x10^3/uL (0.0-0.2) Sodium Level 141 mmol/L (136-145) Potassium Level 3.4 mmol/L (3.5-5.1) Chloride Level 104 mmol/L (98-107) Carbon Dioxide Level 32 mmol/L (21-32) Anion Gap 5 (6-14) Blood Urea Nitrogen 17 mg/dL (7-20) Creatinine 0.8 mg/dL (0.6-1.0) Estimated GFR (Cockcroft-Gault) 69.6 Glucose Level 106 mg/dL (70-99) Calcium Level 8.9 mg/dL (8.5-10.1) Laboratory Tests Test 02/04/20 12:02 02/04/20 17:29 02/04/20 20:01 02/05/20 04:50 Glucose (Fingerstick) 88 mg/dL (70-99) 106 mg/dL (70-99) 147 mg/dL (70-99) White Blood Count 5.9 x10^3/uL (4.0-11.0) Red Blood Count 3.11 x10^6/uL (3.50-5.40) Hemoglobin 9.1 g/dL (12.0-15.5) Hematocrit 27.2 % (36.0-47.0) Mean Corpuscular Volume 88 fL (79-100) Mean Corpuscular Hemoglobin 29 pg (25-35) Mean Corpuscular Hemoglobin Concent 33 g/dL (31-37) Red Cell Distribution Width 15.1 % (11.5-14.5) Platelet Count 196 x10^3/uL (140-400) Neutrophils (%) (Auto) 58 % (31-73) Lymphocytes (%) (Auto) 27 % (24-48) Monocytes (%) (Auto) 9 % (0-9) Eosinophils (%) (Auto) 5 % (0-3) Basophils (%) (Auto) 1 % (0-3) Neutrophils # (Auto) 3.4 x10^3/uL (1.8-7.7) Lymphocytes # (Auto) 1.6 x10^3/uL (1.0-4.8) Monocytes # (Auto) 0.5 x10^3/uL (0.0-1.1) Eosinophils # (Auto) 0.3 x10^3/uL (0.0-0.7) Basophils # (Auto) 0.0 x10^3/uL (0.0-0.2) Sodium Level 141 mmol/L (136-145) Potassium Level 3.4 mmol/L (3.5-5.1) Chloride Level 104 mmol/L (98-107) Carbon Dioxide Level 32 mmol/L (21-32) Anion Gap 5 (6-14) Blood Urea Nitrogen 17 mg/dL (7-20) Creatinine 0.8 mg/dL (0.6-1.0) Estimated GFR (Cockcroft-Gault) 69.6 Glucose Level 106 mg/dL (70-99) Calcium Level 8.9 mg/dL (8.5-10.1) Test 02/05/20 07:56 Glucose (Fingerstick) 102 mg/dL (70-99) Medications Current Medications Fentanyl Citrate (Fentanyl 2ml Vial) 50 mcg 1X ONCE IVP Last administered on 01/29/20at 19:04; Start 01/29/20 at 18:45; Stop 01/29/20 at 18:47; Status DC Ondansetron HCl (Zofran) 4 mg 1X ONCE IVP Last administered on 01/29/20at 19:03; Start 01/29/20 at 18:45; Stop 01/29/20 at 18:47; Status DC Diphenhydramine HCl (Benadryl) 25 mg 1X ONCE IVP ; Start 01/29/20 at 20:15; Stop 01/29/20 at 20:33; Status DC Metoclopramide HCl (Reglan Vial) 10 mg 1X ONCE IVP Last administered on 01/29/20at 20:40; Start 01/29/20 at 20:15; Stop 01/29/20 at 20:16; Status DC Hydromorphone HCl (Dilaudid) 0.5 mg 1X ONCE IVP Last administered on 01/29/20at 20:40; Start 01/29/20 at 20:45; Stop 01/29/20 at 20:46; Status DC Ondansetron HCl (Zofran) 4 mg PRN Q8HRS PRN IV NAUSEA/VOMITING; Start 01/29/20 at 20:45; Stop 01/29/20 at 21:30; Status DC Hydromorphone HCl (Dilaudid) 0.5 mg PRN Q4HRS PRN IVP PAIN Last administered on 01/30/20at 16:49; Start 01/29/20 at 20:45; Stop 01/30/20 at 16:49; Status DC Insulin Human Lispro (HumaLOG) 0-5 UNITS TIDWMEALS SQ ; Start 01/30/20 at 08:00; Stop 01/30/20 at 11:10; Status DC Dextrose (Dextrose 50%-Water Syringe) 12.5 gm PRN Q15MIN PRN IV SEE COMMENTS; Start 01/29/20 at 20:45; Status Cancel Magnesium Sulfate 50 ml @ 25 mls/hr 1X ONCE IV Last administered on 01/29/20at 23:45; Start 01/29/20 at 21:15; Stop 01/29/20 at 23:14; Status DC Hydromorphone HCl (Dilaudid) 0.5 mg 1X ONCE IVP Last administered on 01/29/20at 23:44; Start 01/29/20 at 22:00; Stop 01/29/20 at 22:01; Status DC Ondansetron HCl (Zofran) 4 mg PRN Q4HRS PRN IV NAUSEA/VOMITING 1ST CHOICE Last administered on 01/31/20at 21:31; Start 01/29/20 at 21:30 Acetaminophen (Tylenol) 650 mg PRN Q6HRS PRN PO MILD PAIN / TEMP > 100.3'F Last administered on 02/01/20at 17:15; Start 01/29/20 at 21:30 Atorvastatin Calcium (Lipitor) 10 mg HS PO Last administered on 02/04/20at 22:46; Start 01/29/20 at 22:00 Losartan Potassium (Cozaar) 100 mg DAILY PO Last administered on 02/04/20at 08:32; Start 01/30/20 at 09:00 Pantoprazole Sodium (Protonix) 40 mg DAILYAC PO Last administered on 02/04/20at 08:31; Start 01/30/20 at 07:30 Labetalol HCl (Normodyne Iv Push) 10 mg PRN Q2HR PRN IVP HYPERTENSION; Start 01/29/20 at 21:30 Tramadol HCl (Ultram) 50 mg PRN Q6HRS PRN PO MODERATE PAIN 4-6 Last administered on 01/30/20at 03:22; Start 01/29/20 at 21:30; Stop 02/03/20 at 12:50; Status DC Ropivacaine 53.3 ml/Epinephrine HCl 0.6 mg/ Morphine Sulfate 5 mg/Sodium Chloride 100 ml @ 100 mls/hr 1X ONCE INT ART ; Start 01/30/20 at 08:00; Stop 01/30/20 at 08:59; Status DC Rocuronium Scotrun (Zemuron) 50 mg STK-MED ONCE .ROUTE ; Start 01/30/20 at 09:16; Stop 01/30/20 at 09:16; Status DC Fentanyl Citrate (Fentanyl 2ml Vial) 100 mcg STK-MED ONCE .ROUTE ; Start 01/30/20 at 09:16; Stop 01/30/20 at 09:16; Status DC Propofol (Diprivan) 200 mg STK-MED ONCE IV ; Start 01/30/20 at 09:16; Stop 01/30/20 at 09:16; Status DC Dexamethasone Sodium Phosphate (Decadron) 4 mg STK-MED ONCE .ROUTE ; Start 01/30/20 at 09:16; Stop 01/30/20 at 09:16; Status DC Ondansetron HCl (Zofran) 4 mg STK-MED ONCE .ROUTE ; Start 01/30/20 at 09:16; Stop 01/30/20 at 09:16; Status DC Lidocaine HCl (Lidocaine Pf 2% Vial) 5 ml STK-MED ONCE .ROUTE ; Start 01/30/20 at 09:16; Stop 01/30/20 at 09:16; Status DC Sodium Chloride 1,000 ml @ 75 mls/hr [id number] IV Last administered on 01/31/20at 00:01; Start 01/30/20 at 11:00; Stop 02/02/20 at 09:24; Status DC Oxycodone/ Acetaminophen (Percocet 5/325) 1 tab PRN Q4HRS PRN PO SEVERE PAIN Last administered on 02/03/20at 09:27; Start 01/30/20 at 11:00; Stop 02/03/20 at 12:50; Status DC Ondansetron HCl (Zofran) 4 mg PRN Q6HRS PRN IVP NAUSEA/VOMITING; Start 01/30/20 at 11:00; Stop 01/31/20 at 12:09; Status DC Docusate Sodium (Colace) 100 mg BID PO Last administered on 02/04/20at 22:45; Start 01/30/20 at 11:00 Enoxaparin Sodium (Lovenox 40mg Syringe) 40 mg Q24H SQ Last administered on 01/30/20at 11:27; Start 01/30/20 at 11:00; Stop 01/31/20 at 15:07; Status DC Vitamin D (Vitamin D3) 50,000 unit WEEKLY PO ; Start 01/30/20 at 12:00; Stop 01/30/20 at 15:05; Status DC Insulin Human Lispro (HumaLOG) 0-5 UNITS TIDWMEALS SQ Last administered on 02/03/20at 17:09; Start 01/30/20 at 12:00; Stop 02/04/20 at 07:45; Status DC Dextrose (Dextrose 50%-Water Syringe) 12.5 gm PRN Q15MIN PRN IV SEE COMMENTS; Start 01/30/20 at 11:15 Ringer's Solution 1,000 ml @ 30 mls/hr Q24H IV ; Start 01/31/20 at 07:00; Stop 01/31/20 at 18:59; Status DC Lidocaine HCl (Xylocaine-Mpf 1% 2ml Vial) 2 ml PRN 1X PRN ID PRIOR TO IV START; Start 01/31/20 at 07:00; Stop 01/31/20 at 18:00; Status DC Prochlorperazine Edisylate (Compazine) 5 mg PACU PRN PRN IV NAUSEA, MRX1 Last administered on 01/31/20at 10:14; Start 01/31/20 at 07:00; Stop 01/31/20 at 18:00; Status DC Ergocalciferol (Vitamin D2) 50,000 unit WEEKLY PO Last administered on 01/30/20at 15:27; Start 01/30/20 at 15:00; Stop 01/31/20 at 12:29; Status DC Oxycodone/ Acetaminophen (Percocet 10/325) 1-2 tablets by mo... PRN Q4HRS PRN PO MODERATE TO SEVERE PAIN; Start 01/30/20 at 16:15; Status Cancel Ropivacaine 53.3 ml/Epinephrine HCl 0.6 mg/Sodium Chloride 95 ml @ 100 mls/hr 1X ONCE INT ART Last administered on 01/31/20at 11:20; Start 01/31/20 at 06:00; Stop 01/31/20 at 06:56; Status DC Prochlorperazine Edisylate (Compazine) 10 mg PRN Q6HRS PRN IV NAUSEA/VOMITING 2ND CHOICE Last administered on 01/31/20at 15:57; Start 01/31/20 at 00:45 Lidocaine HCl (Lidocaine Pf 2% Vial) 5 ml STK-MED ONCE .ROUTE ; Start 01/31/20 at 08:38; Stop 01/31/20 at 08:38; Status DC Propofol (Diprivan) 200 mg STK-MED ONCE IV ; Start 01/31/20 at 08:38; Stop 01/31/20 at 08:38; Status DC Rocuronium Scotrun (Zemuron) 50 mg STK-MED ONCE .ROUTE ; Start 01/31/20 at 08:39; Stop 01/31/20 at 08:39; Status DC Fentanyl Citrate (Fentanyl 2ml Vial) 100 mcg STK-MED ONCE .ROUTE ; Start 01/31/20 at 08:39; Stop 01/31/20 at 08:39; Status DC Scopolamine (Transderm-Scop) 1 patch 1X ONCE TD Last administered on 01/31/20at 10:04; Start 01/31/20 at 10:00; Stop 01/31/20 at 10:01; Status DC Fentanyl Citrate (Fentanyl 2ml Vial) 50 mcg PRN Q10MIN PRN IVP pain Last administered on 01/31/20at 10:15; Start 01/31/20 at 10:15; Stop 01/31/20 at 18:11; Status DC Fentanyl Citrate (Fentanyl 2ml Vial) 100 mcg STK-MED ONCE .ROUTE ; Start 01/31/20 at 10:11; Stop 01/31/20 at 10:11; Status DC Vancomycin HCl (VANCO for OR ONLY) 10 gm STK-MED ONCE .ROUTE ; Start 01/31/20 at 10:12; Stop 01/31/20 at 10:12; Status DC Tobramycin Sulfate (Tobramycin Powder) 1.2 gm STK-MED ONCE .ROUTE ; Start 01/31/20 at 10:12; Stop 01/31/20 at 10:12; Status DC Vancomycin HCl (Vancomycin) 1 gm STK-MED ONCE .ROUTE Last administered on 01/31/20at 11:48; Start 01/31/20 at 10:13; Stop 01/31/20 at 10:13; Status DC Vancomycin HCl (Vancomycin) 1 gm STK-MED ONCE .ROUTE ; Start 01/31/20 at 10:13; Stop 01/31/20 at 10:13; Status DC Clindamycin Phosphate 50 ml @ As Directed STK-MED ONCE IV ; Start 01/31/20 at 10:27; Stop 01/31/20 at 10:27; Status DC Clindamycin Phosphate 50 ml @ 100 mls/hr 1X ONCE IV Last administered on 01/31/20at 10:30; Start 01/31/20 at 10:30; Stop 01/31/20 at 11:00; Status DC Fentanyl Citrate (Fentanyl 2ml Vial) 50 mcg PRN Q10MIN PRN IVP pain; Start 01/31/20 at 11:00; Stop 01/31/20 at 18:11; Status DC Tranexamic Acid (Cyklokapron) 1,000 mg STK-MED ONCE .ROUTE ; Start 01/31/20 at 11:09; Stop 01/31/20 at 11:09; Status DC Neostigmine Scotrun (Neostigmine Methylsulfate) 5 mg STK-MED ONCE .ROUTE ; Start 01/31/20 at 11:24; Stop 01/31/20 at 11:24; Status DC Glycopyrrolate (Robinul) 1 mg STK-MED ONCE .ROUTE ; Start 01/31/20 at 11:24; Stop 01/31/20 at 11:24; Status DC Ondansetron HCl (Zofran) 4 mg STK-MED ONCE .ROUTE ; Start 01/31/20 at 11:24; Stop 01/31/20 at 11:24; Status DC Dexamethasone Sodium Phosphate (Decadron) 4 mg STK-MED ONCE .ROUTE ; Start 01/31/20 at 11:24; Stop 01/31/20 at 11:24; Status DC Famotidine (Pepcid Vial) 20 mg STK-MED ONCE .ROUTE ; Start 01/31/20 at 11:24; Stop 01/31/20 at 11:24; Status DC Propofol (Diprivan) 200 mg STK-MED ONCE IV ; Start 01/31/20 at 11:24; Stop 01/31/20 at 11:24; Status DC Ephedrine Sulfate (ePHEDrine PF IN SALINE SYRINGE) 50 mg STK-MED ONCE IV ; Start 01/31/20 at 11:29; Stop 01/31/20 at 11:30; Status DC Phenylephrine HCl (PHENYLEPHRINE in 0.9% NACL PF) 1 mg STK-MED ONCE IV ; Start 01/31/20 at 11:45; Stop 01/31/20 at 11:45; Status DC Sevoflurane (Ultane) 60 ml STK-MED ONCE IH ; Start 01/31/20 at 12:01; Stop 01/31/20 at 12:02; Status DC Oxycodone HCl (Roxicodone) 5 mg PRN Q3HRS PRN PO BREAKTHROUGH PAIN Last administered on 02/03/20at 08:14; Start 01/31/20 at 12:15; Stop 02/03/20 at 12:50; Status DC Fentanyl Citrate (Fentanyl 2ml Vial) 25 mcg PRN Q1HR PRN IVP SEVERE PAIN 7-10 Last administered on 02/02/20at 23:18; Start 01/31/20 at 12:15; Stop 02/03/20 at 12:55; Status DC Multivitamins (Thera M Plus) 1 tab DAILY PO Last administered on 02/04/20at 08:31; Start 02/01/20 at 09:00 Senna/Docusate Sodium (Senna Plus) 1 tab DAILY PO Last administered on 02/04/20at 08:31; Start 02/01/20 at 09:00 Polyethylene Glycol (miraLAX PACKET) 17 gm PRN DAILY PRN PO CONSTIPATION; Start 01/31/20 at 12:15 Sodium Chloride 1,000 ml @ 75 mls/hr [id number] IV Last administered on 02/02/20at 21:15; Start 01/31/20 at 12:01 Clindamycin Phosphate 50 ml @ 100 mls/hr Q6H IV Last administered on 02/01/20at 03:29; Start 01/31/20 at 16:00; Stop 02/01/20 at 04:29; Status DC Ondansetron HCl (Zofran) 4 mg PRN Q4HRS PRN IVP NAUSEA/VOMITING; Start 01/31/20 at 12:15; Status UNV Magnesium Hydroxide (Milk Of Magnesia) 2,400 mg 1X PRN PRN PO CONSTIPATION; Start 02/01/20 at 06:00; Stop 02/02/20 at 05:59; Status DC Bisacodyl (Dulcolax Supp) 10 mg 1X PRN PRN [place] CONSTIPATION; Start 02/01/20 at 16:00; Stop 02/02/20 at 15:59; Status DC Dextrose (Dextrose 50%-Water Syringe) 12.5 gm PRN Q15MIN PRN IV SEE COMMENTS; Start 01/31/20 at 12:15; Status Cancel Aspirin (Ecotrin) 325 mg BID PO Last administered on 02/04/20at 22:46; Start 01/31/20 at 21:00 Ergocalciferol (Vitamin D2) 50,000 unit WEEKLY PO Last administered on 02/01/20at 09:41; Start 02/01/20 at 09:00; Stop 03/07/20 at 09:01 Vitamin D (Vitamin D3) 5,000 unit DAILY PO Last administered on 02/04/20at 08:31; Start 02/01/20 at 09:00 Enoxaparin Sodium (Lovenox 40mg Syringe) 40 mg Q24H SQ Last administered on 02/04/20at 22:45; Start 01/31/20 at 20:00 Aspirin (Ecotrin) 325 mg BID PO ; Start 02/03/20 at 21:00; Status UNV Ferrous Sulfate (Feosol) 325 mg BIDWMEALS PO Last administered on 02/04/20at 16:52; Start 02/03/20 at 09:15 Cyclobenzaprine HCl (Flexeril) 10 mg PRN TID PRN PO MUSCLE SPASMS Last administered on 02/04/20at 22:45; Start 02/03/20 at 09:15 Hydrochlorothiazide (Hydrodiuril) 25 mg DAILY PO Last administered on 02/04/20at 08:31; Start 02/03/20 at 09:15 Acetaminophen/ Codeine Phosphate (Tylenol #3) 1 tab PRN Q6HRS PRN PO PAIN; Start 02/03/20 at 13:00; Stop 02/03/20 at 12:55; Status DC Acetaminophen/ Hydrocodone Bitart (Lortab 5/325) 1 tab PRN Q4HRS PRN PO MODERATE TO SEVERE PAIN Last administered on 02/04/20at 09:49; Start 02/03/20 at 14:45; Stop 02/04/20 at 12:33; Status DC Acetaminophen/ Hydrocodone Bitart (Lortab 10/325) 1 tab PRN Q4HRS PRN PO PAIN Last administered on 02/04/20at 22:46; Start 02/04/20 at 12:45 Influenza Virus Vaccine Quadrival (Fluzone Quad Syringe) 0.5 ml ONCE ONCE VAX IM ; Start 02/05/20 at 09:00; Stop 02/05/20 at 09:01 Active Scripts Active Cyclobenzaprine Hcl 5 Mg Tablet 1 Tab PO TID PRN PRN Reported Aspirin Ec (Aspirin) 325 Mg Tablet. 1 Tab PO BID Ferrous Sulfate 325 Mg Tablet 1 Tab PO BID Losartan Potassium 100 Mg Tablet 100 Mg PO DAILY Atorvastatin Calcium 10 Mg Tablet 10 Mg PO HS LAST DOSE GIVEN: DATE:08/04/17 TIME:9:00 p.m. next dose is tonight Omeprazole 40 Mg Capsule.dr 40 Mg PO DAILY LAST DOSE GIVEN: DATE:03/19/17 TIME:7:30 a.m. Metformin Hcl 1,000 Mg Tablet 1,000 Mg PO BIDWMEALS LAST DOSE GIVEN: DATE:03/19/17 TIME:12:00 p.m. Hydrochlorothiazide Tablet (Hydrochlorothiazide) 50 Mg Tablet 25 Mg PO DAILY Meds not given this hospital admission. May resume home medications as approved by Physician. Monitor BP at home Vitals/I & O Vital Sign - Last 24 Hours 02/04/20 02/04/20 02/04/20 02/04/20 09:49 10:49 11:57 12:54 Temp 97.8 97.8 Pulse 77 Resp 18 B/P (MAP) 121/55 (77) Pulse Ox 99 O2 Delivery Room Air Room Air Room Air Room Air 02/04/20 02/04/20 02/04/20 02/04/20 13:54 15:50 16:52 18:15 Temp 98.2 98.2 Pulse 80 Resp 18 B/P (MAP) 121/59 (79) Pulse Ox 98 O2 Delivery Room Air Room Air Room Air Room Air 02/04/20 02/04/20 02/04/20 02/04/20 19:00 20:13 22:46 23:00 Temp 98.1 97.7 98.1 97.7 Pulse 81 75 Resp 18 18 18 B/P (MAP) 151/56 (87) 155/57 (89) Pulse Ox 97 97 98 O2 Delivery Room Air Room Air Room Air Room Air 02/05/20 02/05/20 02/05/20 00:10 03:00 07:05 Temp 97.9 97.9 97.9 97.9 Pulse 86 74 Resp 16 18 20 B/P (MAP) 162/54 (90) 157/66 (96) Pulse Ox 98 99 97 O2 Delivery Room Air Room Air Room Air Intake and Output 02/04/20 02/04/20 02/05/20 15:00 23:00 07:00 Intake Total 120 ml 150 ml 150 ml Balance 120 ml 150 ml 150 ml Nutrition Consultation Dietary Evaluation: Recommendations by RD: Dietary education by RD, Increase Calorie Intake, Protein supplementation Comments: liberlize diet to Regular, obtained food and supplement preferences from pt and daughter ensure pudding tid Expected Outcomes/Goals: to meet >75% est nutr needs Interpretation of weight loss: >20% in 1 year Malnutrition Findings: Food and Nutrition Intake (Sev: <50% est energy req 5days Weight Status: Appropriate Justicifation of Admission Dx: Justifications for Admission: Justification of Admission Dx: Yes IVONE SEYMOUR MD Feb 05, 2020 08:48
[2020-02-05] MEDS ORDERED: FLU VACC QS 2020-21(6MOS+)/PF 0.5 ML SYRINGE. VAX IM ONE (09:00)
[2020-02-05] MEDS: LOSARTAN POTASSIUM 50 MG TABLET. PO SCH (09:05)
[2020-02-05] MEDS: PANTOPRAZOLE 40 MG TABLET.DR. PO SCH (09:06)
[2020-02-05] MEDS: hydroCHLOROthiazide 25 MG TABLET PO SCH (09:06)
[2020-02-05] MEDS: FERROUS SULFATE 325 MG TABLET. PO SCH (09:06)
[2020-02-05] MEDS: CHOLECALCIFEROL (VITAMIN D3) 5,000 UNIT CAPSULE PO SCH (09:06)
[2020-02-05] MEDS: DOCUSATE SODIUM 100 MG CAPSULE. PO SCH (09:06)
[2020-02-05] MEDS: MULTIVITAMIN with MINERAL TABLET. PO SCH (09:06)
[2020-02-05] MEDS: ASPIRIN ENTERIC COATED 325 MG TABLET.DR. PO SCH (09:06)
[2020-02-05] MEDS: SENNOSIDES/DOCUSATE 8.6/50MG TABLET. PO SCH (09:06)
[2020-02-05] MEDS: HYDROcodone/APAP 10/325 1 TAB TABLET PO PRN ×2 (09:08→15:52)
--- NOTE | 2020-02-05 09:40 | NUR ---
[facility] following. Discussed with RN, pt ready to discharge to [facility] today. SW awaiting discharge orders. [facility] will continue to follow. Addendum: 02/05/20 at 1401 by SHERWIN CEE Discharge orders faxed to [facility] at [phone], awaiting transportation time. [facility] will continue to follow.
[2020-02-05 10:45] VITALS: BP 113/58
--- NOTE | 2020-02-05 11:26 | PDOC ---
ORTHO PROGRESS NOTES DATE: 02/05/20 TIME: 11:24 Subjective Patient is sitting up in chair talking to daughter but worried about physical therapy Post-op Day: 5 Procedure Left hip cemented bipolar arthroplasty Vitals Vital Signs Date Time Temp Pulse Resp B/P (MAP) Pulse Ox O2 Delivery O2 Flow Rate FiO2 02/05/20 10:45 97.6 82 20 113/58 (76) 97 Room Air 97.6 Labs Laboratory Tests Test 02/03/20 11:56 02/03/20 16:43 02/03/20 20:30 02/04/20 04:15 Glucose (Fingerstick) 97 mg/dL (70-99) 164 mg/dL (70-99) 101 mg/dL (70-99) White Blood Count 6.9 x10^3/uL (4.0-11.0) Red Blood Count 3.24 x10^6/uL (3.50-5.40) Hemoglobin 9.4 g/dL (12.0-15.5) Hematocrit 28.6 % (36.0-47.0) Mean Corpuscular Volume 88 fL (79-100) Mean Corpuscular Hemoglobin 29 pg (25-35) Mean Corpuscular Hemoglobin Concent 33 g/dL (31-37) Red Cell Distribution Width 14.8 % (11.5-14.5) Platelet Count 162 x10^3/uL (140-400) Neutrophils (%) (Auto) 59 % (31-73) Lymphocytes (%) (Auto) 27 % (24-48) Monocytes (%) (Auto) 8 % (0-9) Eosinophils (%) (Auto) 5 % (0-3) Basophils (%) (Auto) 1 % (0-3) Neutrophils # (Auto) 4.1 x10^3/uL (1.8-7.7) Lymphocytes # (Auto) 1.9 x10^3/uL (1.0-4.8) Monocytes # (Auto) 0.6 x10^3/uL (0.0-1.1) Eosinophils # (Auto) 0.3 x10^3/uL (0.0-0.7) Basophils # (Auto) 0.1 x10^3/uL (0.0-0.2) Test 02/04/20 05:00 02/04/20 07:12 02/04/20 07:37 02/04/20 12:02 Sodium Level 141 mmol/L (136-145) Potassium Level 3.3 mmol/L (3.5-5.1) Chloride Level 103 mmol/L (98-107) Carbon Dioxide Level 29 mmol/L (21-32) Anion Gap 9 (6-14) Blood Urea Nitrogen 16 mg/dL (7-20) Creatinine 0.8 mg/dL (0.6-1.0) Estimated GFR (Cockcroft-Gault) 69.6 Glucose Level 99 mg/dL (70-99) Calcium Level 8.6 mg/dL (8.5-10.1) Glucose (Fingerstick) 32 mg/dL (70-99) 114 mg/dL (70-99) 88 mg/dL (70-99) Test 02/04/20 17:29 02/04/20 20:01 02/05/20 04:50 02/05/20 07:56 Glucose (Fingerstick) 106 mg/dL (70-99) 147 mg/dL (70-99) 102 mg/dL (70-99) White Blood Count 5.9 x10^3/uL (4.0-11.0) Red Blood Count 3.11 x10^6/uL (3.50-5.40) Hemoglobin 9.1 g/dL (12.0-15.5) Hematocrit 27.2 % (36.0-47.0) Mean Corpuscular Volume 88 fL (79-100) Mean Corpuscular Hemoglobin 29 pg (25-35) Mean Corpuscular Hemoglobin Concent 33 g/dL (31-37) Red Cell Distribution Width 15.1 % (11.5-14.5) Platelet Count 196 x10^3/uL (140-400) Neutrophils (%) (Auto) 58 % (31-73) Lymphocytes (%) (Auto) 27 % (24-48) Monocytes (%) (Auto) 9 % (0-9) Eosinophils (%) (Auto) 5 % (0-3) Basophils (%) (Auto) 1 % (0-3) Neutrophils # (Auto) 3.4 x10^3/uL (1.8-7.7) Lymphocytes # (Auto) 1.6 x10^3/uL (1.0-4.8) Monocytes # (Auto) 0.5 x10^3/uL (0.0-1.1) Eosinophils # (Auto) 0.3 x10^3/uL (0.0-0.7) Basophils # (Auto) 0.0 x10^3/uL (0.0-0.2) Sodium Level 141 mmol/L (136-145) Potassium Level 3.4 mmol/L (3.5-5.1) Chloride Level 104 mmol/L (98-107) Carbon Dioxide Level 32 mmol/L (21-32) Anion Gap 5 (6-14) Blood Urea Nitrogen 17 mg/dL (7-20) Creatinine 0.8 mg/dL (0.6-1.0) Estimated GFR (Cockcroft-Gault) 69.6 Glucose Level 106 mg/dL (70-99) Calcium Level 8.9 mg/dL (8.5-10.1) Laboratory Tests Test 02/04/20 12:02 02/04/20 17:29 02/04/20 20:01 02/05/20 04:50 Glucose (Fingerstick) 88 mg/dL (70-99) 106 mg/dL (70-99) 147 mg/dL (70-99) White Blood Count 5.9 x10^3/uL (4.0-11.0) Red Blood Count 3.11 x10^6/uL (3.50-5.40) Hemoglobin 9.1 g/dL (12.0-15.5) Hematocrit 27.2 % (36.0-47.0) Mean Corpuscular Volume 88 fL (79-100) Mean Corpuscular Hemoglobin 29 pg (25-35) Mean Corpuscular Hemoglobin Concent 33 g/dL (31-37) Red Cell Distribution Width 15.1 % (11.5-14.5) Platelet Count 196 x10^3/uL (140-400) Neutrophils (%) (Auto) 58 % (31-73) Lymphocytes (%) (Auto) 27 % (24-48) Monocytes (%) (Auto) 9 % (0-9) Eosinophils (%) (Auto) 5 % (0-3) Basophils (%) (Auto) 1 % (0-3) Neutrophils # (Auto) 3.4 x10^3/uL (1.8-7.7) Lymphocytes # (Auto) 1.6 x10^3/uL (1.0-4.8) Monocytes # (Auto) 0.5 x10^3/uL (0.0-1.1) Eosinophils # (Auto) 0.3 x10^3/uL (0.0-0.7) Basophils # (Auto) 0.0 x10^3/uL (0.0-0.2) Sodium Level 141 mmol/L (136-145) Potassium Level 3.4 mmol/L (3.5-5.1) Chloride Level 104 mmol/L (98-107) Carbon Dioxide Level 32 mmol/L (21-32) Anion Gap 5 (6-14) Blood Urea Nitrogen 17 mg/dL (7-20) Creatinine 0.8 mg/dL (0.6-1.0) Estimated GFR (Cockcroft-Gault) 69.6 Glucose Level 106 mg/dL (70-99) Calcium Level 8.9 mg/dL (8.5-10.1) Test 02/05/20 07:56 Glucose (Fingerstick) 102 mg/dL (70-99) Notes Awake and alert sitting up in chair at bedside Assessment and Plan Postop day #5 status post left hip cemented bipolar arthroplasty. Motor and sensation intact distally. Dressing is dry and intact. There is ecchymosis around the wound site. [place] are intact. Calf is soft and nontender. To [facility] today. May follow-up with orthopedics in 10 to 14 days. RAH LOCO APRN Feb 05, 2020 11:26
[2020-02-05 12:00] LABS: % BANDS 1 % (0-9); % BASOS 1 % (0-3); % EOS 6 % (0-5); % LYMPHS 20 % (24-48); % MONOS 6 % (0-10); % SEGS 66 % (35-66); PLT ESTIMATE ADEQUATE (ADEQUATE)
--- NOTE | 2020-02-05 12:16 | PDOC3 ---
Discharge Summary Date of Admission: Jan 30, 2020 Date of Discharge: Feb 05, 2020 Follow-Up: 1-2 days Admitting Diagnosis comment: discharge dx Left hip fracture Consult orthopedic surgery Status post open reduction internal fixation 01/31/2020 IV normal saline Pain management, bowel regimen. Sliding scale insulin Vitamin D 50,000 IU p.o. weekly for 8 weeks PT/OT VTE prophylaxis Postop day #5 status post left hip cemented bipolar arthroplasty. Discharge to rehab 02/04 Discharge Recommendation Comments * Will need post acute rehab d/c planning 32 min History of Present Illness History of Present Illness 02/02 Patient status post open reduction internal fixation 01/30 of left femoral neck. Still with some postop delirium/confusion. Discussed with daughter, this appears to have cleared up slightly but still with visual hallucinations of bugs and tall man with a mejia in the corner of the room. Patient's daughter feels patient would react better to Tylenol 3. Discussed with RN, avoid all narcotics unless patient requests pain medication. Recommend PT when patient more lucid. 02/04 Patient's visual hallucinations have resolved. Discussed with RN, discontinue sliding scale insulin due to hypoglycemia. Vitals Vitals Vital Signs Date Time Temp Pulse Resp B/P (MAP) Pulse Ox O2 Delivery O2 Flow Rate FiO2 02/05/20 07:05 97.9 74 20 157/66 (96) 97 Room Air 97.9 Physical Exam General: Alert, Oriented X3, Cooperative, no distress Heart: Regular rate, Normal S1, Normal S2 Lungs: Clear, Other (Breathing comfortably on room air) Abdomen: Normal bowel sounds Extremities: No clubbing, No cyanosis, No edema Skin: No rashes FINAL DIAGNOSIS Problems Medical Problems: (1) Hypomagnesemia Status: Acute (2) Left displaced femoral neck fracture Status: Acute Brief Hospital Course Ms. Luther is a 79 old [sex] who presented with [ fall, acute hip fracture] CONDITION AT DISCHARGE: Improved Discharge Medications Current Medications Fentanyl Citrate (Fentanyl 2ml Vial) 50 mcg 1X ONCE IVP Last administered on 01/29/20at 19:04; Start 01/29/20 at 18:45; Stop 01/29/20 at 18:47; Status DC Ondansetron HCl (Zofran) 4 mg 1X ONCE IVP Last administered on 01/29/20at 19:03; Start 01/29/20 at 18:45; Stop 01/29/20 at 18:47; Status DC Diphenhydramine HCl (Benadryl) 25 mg 1X ONCE IVP ; Start 01/29/20 at 20:15; Stop 01/29/20 at 20:33; Status DC Metoclopramide HCl (Reglan Vial) 10 mg 1X ONCE IVP Last administered on 01/29/20at 20:40; Start 01/29/20 at 20:15; Stop 01/29/20 at 20:16; Status DC Hydromorphone HCl (Dilaudid) 0.5 mg 1X ONCE IVP Last administered on 01/29/20at 20:40; Start 01/29/20 at 20:45; Stop 01/29/20 at 20:46; Status DC Ondansetron HCl (Zofran) 4 mg PRN Q8HRS PRN IV NAUSEA/VOMITING; Start 01/29/20 at 20:45; Stop 01/29/20 at 21:30; Status DC Hydromorphone HCl (Dilaudid) 0.5 mg PRN Q4HRS PRN IVP PAIN Last administered on 01/30/20at 16:49; Start 01/29/20 at 20:45; Stop 01/30/20 at 16:49; Status DC Insulin Human Lispro (HumaLOG) 0-5 UNITS TIDWMEALS SQ ; Start 01/30/20 at 08:00; Stop 01/30/20 at 11:10; Status DC Dextrose (Dextrose 50%-Water Syringe) 12.5 gm PRN Q15MIN PRN IV SEE COMMENTS; Start 01/29/20 at 20:45; Status Cancel Magnesium Sulfate 50 ml @ 25 mls/hr 1X ONCE IV Last administered on 01/29/20at 23:45; Start 01/29/20 at 21:15; Stop 01/29/20 at 23:14; Status DC Hydromorphone HCl (Dilaudid) 0.5 mg 1X ONCE IVP Last administered on 01/29/20at 23:44; Start 01/29/20 at 22:00; Stop 01/29/20 at 22:01; Status DC Ondansetron HCl (Zofran) 4 mg PRN Q4HRS PRN IV NAUSEA/VOMITING 1ST CHOICE Last administered on 01/31/20at 21:31; Start 01/29/20 at 21:30 Acetaminophen (Tylenol) 650 mg PRN Q6HRS PRN PO MILD PAIN / TEMP > 100.3'F Last administered on 02/01/20at 17:15; Start 01/29/20 at 21:30 Atorvastatin Calcium (Lipitor) 10 mg HS PO Last administered on 02/04/20at 22:46; Start 01/29/20 at 22:00 Losartan Potassium (Cozaar) 100 mg DAILY PO Last administered on 02/05/20at 09:05; Start 01/30/20 at 09:00 Pantoprazole Sodium (Protonix) 40 mg DAILYAC PO Last administered on 02/05/20at 09:06; Start 01/30/20 at 07:30 Labetalol HCl (Normodyne Iv Push) 10 mg PRN Q2HR PRN IVP HYPERTENSION; Start 01/29/20 at 21:30 Tramadol HCl (Ultram) 50 mg PRN Q6HRS PRN PO MODERATE PAIN 4-6 Last adminis tered on 01/30/20at 03:22; Start 01/29/20 at 21:30; Stop 02/03/20 at 12:50; Status DC Ropivacaine 53.3 ml/Epinephrine HCl 0.6 mg/ Morphine Sulfate 5 mg/Sodium Chloride 100 ml @ 100 mls/hr 1X ONCE INT ART ; Start 01/30/20 at 08:00; Stop 01/30/20 at 08:59; Status DC Rocuronium [place] (Zemuron) 50 mg STK-MED ONCE .ROUTE ; Start 01/30/20 at 09:16; Stop 01/30/20 at 09:16; Status DC Fentanyl Citrate (Fentanyl 2ml Vial) 100 mcg STK-MED ONCE .ROUTE ; Start 01/30/20 at 09:16; Stop 01/30/20 at 09:16; Status DC Propofol (Diprivan) 200 mg STK-MED ONCE IV ; Start 01/30/20 at 09:16; Stop 01/30/20 at 09:16; Status DC Dexamethasone Sodium Phosphate (Decadron) 4 mg STK-MED ONCE .ROUTE ; Start 01/30/20 at 09:16; Stop 01/30/20 at 09:16; Status DC Ondansetron HCl (Zofran) 4 mg STK-MED ONCE .ROUTE ; Start 01/30/20 at 09:16; Stop 01/30/20 at 09:16; Status DC Lidocaine HCl (Lidocaine Pf 2% Vial) 5 ml STK-MED ONCE .ROUTE ; Start 01/30/20 at 09:16; Stop 01/30/20 at 09:16; Status DC Sodium Chloride 1,000 ml @ 75 mls/hr [id number] IV Last administered on 01/31/20at 00:01; Start 01/30/20 at 11:00; Stop 02/02/20 at 09:24; Status DC Oxycodone/ Acetaminophen (Percocet 5/325) 1 tab PRN Q4HRS PRN PO SEVERE PAIN Last administered on 02/03/20at 09:27; Start 01/30/20 at 11:00; Stop 02/03/20 at 12:50; Status DC Ondansetron HCl (Zofran) 4 mg PRN Q6HRS PRN IVP NAUSEA/VOMITING; Start 01/30/20 at 11:00; Stop 01/31/20 at 12:09; Status DC Docusate Sodium (Colace) 100 mg BID PO Last administered on 02/05/20at 09:06; Start 01/30/20 at 11:00 Enoxaparin Sodium (Lovenox 40mg Syringe) 40 mg Q24H SQ Last administered on 01/30/20at 11:27; Start 01/30/20 at 11:00; Stop 01/31/20 at 15:07; Status DC Vitamin D (Vitamin D3) 50,000 unit WEEKLY PO ; Start 01/30/20 at 12:00; Stop 01/30/20 at 15:05; Status DC Insulin Human Lispro (HumaLOG) 0-5 UNITS TIDWMEALS SQ Last administered on 02/03/20at 17:09; Start 01/30/20 at 12:00; Stop 02/04/20 at 07:45; Status DC Dextrose (Dextrose 50%-Water Syringe) 12.5 gm PRN Q15MIN PRN IV SEE COMMENTS; Start 01/30/20 at 11:15 Ringer's Solution 1,000 ml @ 30 mls/hr Q24H IV ; Start 01/31/20 at 07:00; Stop 01/31/20 at 18:59; Status DC Lidocaine HCl (Xylocaine-Mpf 1% 2ml Vial) 2 ml PRN 1X PRN ID PRIOR TO IV START; Start 01/31/20 at 07:00; Stop 01/31/20 at 18:00; Status DC Prochlorperazine Edisylate (Compazine) 5 mg PACU PRN PRN IV NAUSEA, MRX1 Last administered on 01/31/20at 10:14; Start 01/31/20 at 07:00; Stop 01/31/20 at 18:00; Status DC Ergocalciferol (Vitamin D2) 50,000 unit WEEKLY PO Last administered on 01/30/20at 15:27; Start 01/30/20 at 15:00; Stop 01/31/20 at 12:29; Status DC Oxycodone/ Acetaminophen (Percocet 10/325) 1-2 tablets by mo... PRN Q4HRS PRN PO MODERATE TO SEVERE PAIN; Start 01/30/20 at 16:15; Status Cancel Ropivacaine 53.3 ml/Epinephrine HCl 0.6 mg/Sodium Chloride 95 ml @ 100 mls/hr 1X ONCE INT ART Last administered on 01/31/20at 11:20; Start 01/31/20 at 06:00; Stop 01/31/20 at 06:56; Status DC Prochlorperazine Edisylate (Compazine) 10 mg PRN Q6HRS PRN IV NAUSEA/VOMITING 2ND CHOICE Last administered on 01/31/20at 15:57; Start 01/31/20 at 00:45 Lidocaine HCl (Lidocaine Pf 2% Vial) 5 ml STK-MED ONCE .ROUTE ; Start 01/31/20 at 08:38; Stop 01/31/20 at 08:38; Status DC Propofol (Diprivan) 200 mg STK-MED ONCE IV ; Start 01/31/20 at 08:38; Stop 01/31/20 at 08:38; Status DC Rocuronium [place] (Zemuron) 50 mg STK-MED ONCE .ROUTE ; Start 01/31/20 at 08:39; Stop 01/31/20 at 08:39; Status DC Fentanyl Citrate (Fentanyl 2ml Vial) 100 mcg STK-MED ONCE .ROUTE ; Start 01/31/20 at 08:39; Stop 01/31/20 at 08:39; Status DC Scopolamine (Transderm-Scop) 1 patch 1X ONCE TD Last administered on 01/31/20at 10:04; Start 01/31/20 at 10:00; Stop 01/31/20 at 10:01; Status DC Fentanyl Citrate (Fentanyl 2ml Vial) 50 mcg PRN Q10MIN PRN IVP pain Last administered on 01/31/20at 10:15; Start 01/31/20 at 10:15; Stop 01/31/20 at 18:11; Status DC Fentanyl Citrate (Fentanyl 2ml Vial) 100 mcg STK-MED ONCE .ROUTE ; Start 01/31/20 at 10:11; Stop 01/31/20 at 10:11; Status DC Vancomycin HCl (VANCO for OR ONLY) 10 gm STK-MED ONCE .ROUTE ; Start 01/31/20 at 10:12; Stop 01/31/20 at 10:12; Status DC Tobramycin Sulfate (Tobramycin Powder) 1.2 gm STK-MED ONCE .ROUTE ; Start 01/31/20 at 10:12; Stop 01/31/20 at 10:12; Status DC Vancomycin HCl (Vancomycin) 1 gm STK-MED ONCE .ROUTE Last administered on 01/31/20at 11:48; Start 01/31/20 at 10:13; Stop 01/31/20 at 10:13; Status DC Vancomycin HCl (Vancomycin) 1 gm STK-MED ONCE .ROUTE ; Start 01/31/20 at 10:13; Stop 01/31/20 at 10:13; Status DC Clindamycin Phosphate 50 ml @ As Directed STK-MED ONCE IV ; Start 01/31/20 at 10:27; Stop 01/31/20 at 10:27; Status DC Clindamycin Phosphate 50 ml @ 100 mls/hr 1X ONCE IV Last administered on 01/31/20at 10:30; Start 01/31/20 at 10:30; Stop 01/31/20 at 11:00; Status DC Fentanyl Citrate (Fentanyl 2ml Vial) 50 mcg PRN Q10MIN PRN IVP pain; Start 01/31/20 at 11:00; Stop 01/31/20 at 18:11; Status DC Tranexamic Acid (Cyklokapron) 1,000 mg STK-MED ONCE .ROUTE ; Start 01/31/20 at 11:09; Stop 01/31/20 at 11:09; Status DC Neostigmine [place] (Neostigmine Methylsulfate) 5 mg STK-MED ONCE .ROUTE ; Start 01/31/20 at 11:24; Stop 01/31/20 at 11:24; Status DC Glycopyrrolate (Robinul) 1 mg STK-MED ONCE .ROUTE ; Start 01/31/20 at 11:24; Stop 01/31/20 at 11:24; Status DC Ondansetron HCl (Zofran) 4 mg STK-MED ONCE .ROUTE ; Start 01/31/20 at 11:24; Stop 01/31/20 at 11:24; Status DC Dexamethasone Sodium Phosphate (Decadron) 4 mg STK-MED ONCE .ROUTE ; Start 01/31/20 at 11:24; Stop 01/31/20 at 11:24; Status DC Famotidine (Pepcid Vial) 20 mg STK-MED ONCE .ROUTE ; Start 01/31/20 at 11:24; Stop 01/31/20 at 11:24; Status DC Propofol (Diprivan) 200 mg STK-MED ONCE IV ; Start 01/31/20 at 11:24; Stop 01/31/20 at 11:24; Status DC Ephedrine Sulfate (ePHEDrine PF IN SALINE SYRINGE) 50 mg STK-MED ONCE IV ; Start 01/31/20 at 11:29; Stop 01/31/20 at 11:30; Status DC Phenylephrine HCl (PHENYLEPHRINE in 0.9% NACL PF) 1 mg STK-MED ONCE IV ; Start 01/31/20 at 11:45; Stop 01/31/20 at 11:45; Status DC Sevoflurane (Ultane) 60 ml STK-MED ONCE IH ; Start 01/31/20 at 12:01; Stop 01/31/20 at 12:02; Status DC Oxycodone HCl (Roxicodone) 5 mg PRN Q3HRS PRN PO BREAKTHROUGH PAIN Last administered on 02/03/20at 08:14; Start 01/31/20 at 12:15; Stop 02/03/20 at 12:50; Status DC Fentanyl Citrate (Fentanyl 2ml Vial) 25 mcg PRN Q1HR PRN IVP SEVERE PAIN 7-10 Last administered on 02/02/20at 23:18; Start 01/31/20 at 12:15; Stop 02/03/20 at 12:55; Status DC Multivitamins (Thera M Plus) 1 tab DAILY PO Last administered on 02/05/20at 09:06; Start 02/01/20 at 09:00 Senna/Docusate Sodium (Senna Plus) 1 tab DAILY PO Last administered on 02/05/20at 09:06; Start 02/01/20 at 09:00 Polyethylene Glycol (miraLAX PACKET) 17 gm PRN DAILY PRN PO CONSTIPATION Last administered on 02/05/20at 09:16; Start 01/31/20 at 12:15 Sodium Chloride 1,000 ml @ 75 mls/hr [id number] IV Last administered on 02/02/20at 21:15; Start 01/31/20 at 12:01 Clindamycin Phosphate 50 ml @ 100 mls/hr Q6H IV Last administered on 02/01/20at 03:29; Start 01/31/20 at 16:00; Stop 02/01/20 at 04:29; Status DC Ondansetron HCl (Zofran) 4 mg PRN Q4HRS PRN IVP NAUSEA/VOMITING; Start 01/31/20 at 12:15; Status UNV Magnesium Hydroxide (Milk Of Magnesia) 2,400 mg 1X PRN PRN PO CONSTIPATION; Start 02/01/20 at 06:00; Stop 02/02/20 at 05:59; Status DC Bisacodyl (Dulcolax Supp) 10 mg 1X PRN PRN [place] CONSTIPATION; Start 02/01/20 at 16:00; Stop 02/02/20 at 15:59; Status DC Dextrose (Dextrose 50%-Water Syringe) 12.5 gm PRN Q15MIN PRN IV SEE COMMENTS; Start 01/31/20 at 12:15; Status Cancel Aspirin (Ecotrin) 325 mg BID PO Last administered on 02/05/20at 09:06; Start 01/31/20 at 21:00 Ergocalciferol (Vitamin D2) 50,000 unit WEEKLY PO Last administered on 02/01/20at 09:41; Start 02/01/20 at 09:00; Stop 03/07/20 at 09:01 Vitamin D (Vitamin D3) 5,000 unit DAILY PO Last administered on 02/05/20at 09:06; Start 02/01/20 at 09:00 Enoxaparin Sodium (Lovenox 40mg Syringe) 40 mg Q24H SQ Last administered on 02/04/20at 22:45; Start 01/31/20 at 20:00 Aspirin (Ecotrin) 325 mg BID PO ; Start 02/03/20 at 21:00; Status UNV Ferrous Sulfate (Feosol) 325 mg BIDWMEALS PO Last administered on 02/05/20at 09:06; Start 02/03/20 at 09:15 Cyclobenzaprine HCl (Flexeril) 10 mg PRN TID PRN PO MUSCLE SPASMS Last administered on 02/04/20at 22:45; Start 02/03/20 at 09:15 Hydrochlorothiazide (Hydrodiuril) 25 mg DAILY PO Last administered on 02/05/20at 09:06; Start 02/03/20 at 09:15 Acetaminophen/ Codeine Phosphate (Tylenol #3) 1 tab PRN Q6HRS PRN PO PAIN; Start 02/03/20 at 13:00; Stop 02/03/20 at 12:55; Status DC Acetaminophen/ Hydrocodone Bitart (Lortab 5/325) 1 tab PRN Q4HRS PRN PO MODERATE TO SEVERE PAIN Last administered on 02/04/20at 09:49; Start 02/03/20 at 14:45; Stop 02/04/20 at 12:33; Status DC Acetaminophen/ Hydrocodone Bitart (Lortab 10/325) 1 tab PRN Q4HRS PRN PO PAIN Last administered on 02/05/20at 09:08; Start 02/04/20 at 12:45 Influenza Virus Vaccine Quadrival (Fluzone Quad Syringe) 0.5 ml ONCE ONCE VAX IM Last administered on 02/05/20at 09:20; Start 02/05/20 at 09:00; Stop 02/05/20 at 09:01; Status DC Active Scripts Active Cyclobenzaprine Hcl 5 Mg Tablet 1 Tab PO TID PRN PRN Reported Aspirin Ec (Aspirin) 325 Mg Tablet.dr 1 Tab PO BID Ferrous Sulfate 325 Mg Tablet 1 Tab PO BID Losartan Potassium 100 Mg Tablet 100 Mg PO DAILY Atorvastatin Calcium 10 Mg Tablet 10 Mg PO HS LAST DOSE GIVEN: DATE:08/04/17 TIME:9:00 p.m. next dose is tonight Omeprazole 40 Mg Capsule.dr 40 Mg PO DAILY LAST DOSE GIVEN: DATE:03/19/17 TIME:7:30 a.m. Metformin Hcl 1,000 Mg Tablet 1,000 Mg PO BIDWMEALS LAST DOSE GIVEN: DATE:03/19/17 TIME:12:00 p.m. Hydrochlorothiazide Tablet (Hydrochlorothiazide) 50 Mg Tablet 25 Mg PO DAILY Meds not given this hospital admission. May resume home medications as approved by Physician. Monitor BP at home Vital Signs Vital Signs Date Time Temp Pulse Resp B/P (MAP) Pulse Ox O2 Delivery O2 Flow Rate FiO2 02/05/20 10:45 97.6 82 20 113/58 (76) 97 Room Air 97.6 Labs Laboratory Tests Test 02/03/20 16:43 02/03/20 20:30 02/04/20 04:15 02/04/20 05:00 Glucose (Fingerstick) 164 mg/dL (70-99) 101 mg/dL (70-99) White Blood Count 6.9 x10^3/uL (4.0-11.0) Red Blood Count 3.24 x10^6/uL (3.50-5.40) Hemoglobin 9.4 g/dL (12.0-15.5) Hematocrit 28.6 % (36.0-47.0) Mean Corpuscular Volume 88 fL (79-100) Mean Corpuscular Hemoglobin 29 pg (25-35) Mean Corpuscular Hemoglobin Concent 33 g/dL (31-37) Red Cell Distribution Width 14.8 % (11.5-14.5) Platelet Count 162 x10^3/uL (140-400) Neutrophils (%) (Auto) 59 % (31-73) Lymphocytes (%) (Auto) 27 % (24-48) Monocytes (%) (Auto) 8 % (0-9) Eosinophils (%) (Auto) 5 % (0-3) Basophils (%) (Auto) 1 % (0-3) Neutrophils # (Auto) 4.1 x10^3/uL (1.8-7.7) Lymphocytes # (Auto) 1.9 x10^3/uL (1.0-4.8) Monocytes # (Auto) 0.6 x10^3/uL (0.0-1.1) Eosinophils # (Auto) 0.3 x10^3/uL (0.0-0.7) Basophils # (Auto) 0.1 x10^3/uL (0.0-0.2) Sodium Level 141 mmol/L (136-145) Potassium Level 3.3 mmol/L (3.5-5.1) Chloride Level 103 mmol/L (98-107) Carbon Dioxide Level 29 mmol/L (21-32) Anion Gap 9 (6-14) Blood Urea Nitrogen 16 mg/dL (7-20) Creatinine 0.8 mg/dL (0.6-1.0) Estimated GFR (Cockcroft-Gault) 69.6 Glucose Level 99 mg/dL (70-99) Calcium Level 8.6 mg/dL (8.5-10.1) Test 02/04/20 07:12 02/04/20 07:37 02/04/20 12:02 02/04/20 17:29 Glucose (Fingerstick) 32 mg/dL (70-99) 114 mg/dL (70-99) 88 mg/dL (70-99) 106 mg/dL (70-99) Test 02/04/20 20:01 02/05/20 04:50 02/05/20 07:56 02/05/20 11:42 Glucose (Fingerstick) 147 mg/dL (70-99) 102 mg/dL (70-99) 152 mg/dL (70-99) White Blood Count 5.9 x10^3/uL (4.0-11.0) Red Blood Count 3.11 x10^6/uL (3.50-5.40) Hemoglobin 9.1 g/dL (12.0-15.5) Hematocrit 27.2 % (36.0-47.0) Mean Corpuscular Volume 88 fL (79-100) Mean Corpuscular Hemoglobin 29 pg (25-35) Mean Corpuscular Hemoglobin Concent 33 g/dL (31-37) Red Cell Distribution Width 15.1 % (11.5-14.5) Platelet Count 196 x10^3/uL (140-400) Neutrophils (%) (Auto) 58 % (31-73) Lymphocytes (%) (Auto) 27 % (24-48) Monocytes (%) (Auto) 9 % (0-9) Eosinophils (%) (Auto) 5 % (0-3) Basophils (%) (Auto) 1 % (0-3) Neutrophils # (Auto) 3.4 x10^3/uL (1.8-7.7) Lymphocytes # (Auto) 1.6 x10^3/uL (1.0-4.8) Monocytes # (Auto) 0.5 x10^3/uL (0.0-1.1) Eosinophils # (Auto) 0.3 x10^3/uL (0.0-0.7) Basophils # (Auto) 0.0 x10^3/uL (0.0-0.2) Segmented Neutrophils % 66 % (35-66) Band Neutrophils % 1 % (0-9) Lymphocytes % 20 % (24-48) Monocytes % 6 % (0-10) Eosinophils % 6 % (0-5) Basophils % 1 % (0-3) Platelet Estimate Adequate (ADEQUATE) Sodium Level 141 mmol/L (136-145) Potassium Level 3.4 mmol/L (3.5-5.1) Chloride Level 104 mmol/L (98-107) Carbon Dioxide Level 32 mmol/L (21-32) Anion Gap 5 (6-14) Blood Urea Nitrogen 17 mg/dL (7-20) Creatinine 0.8 mg/dL (0.6-1.0) Estimated GFR (Cockcroft-Gault) 69.6 Glucose Level 106 mg/dL (70-99) Calcium Level 8.9 mg/dL (8.5-10.1) Laboratory Tests Test 02/04/20 17:29 02/04/20 20:01 02/05/20 04:50 02/05/20 07:56 Glucose (Fingerstick) 106 mg/dL (70-99) 147 mg/dL (70-99) 102 mg/dL (70-99) White Blood Count 5.9 x10^3/uL (4.0-11.0) Red Blood Count 3.11 x10^6/uL (3.50-5.40) Hemoglobin 9.1 g/dL (12.0-15.5) Hematocrit 27.2 % (36.0-47.0) Mean Corpuscular Volume 88 fL (79-100) Mean Corpuscular Hemoglobin 29 pg (25-35) Mean Corpuscular Hemoglobin Concent 33 g/dL (31-37) Red Cell Distribution Width 15.1 % (11.5-14.5) Platelet Count 196 x10^3/uL (140-400) Neutrophils (%) (Auto) 58 % (31-73) Lymphocytes (%) (Auto) 27 % (24-48) Monocytes (%) (Auto) 9 % (0-9) Eosinophils (%) (Auto) 5 % (0-3) Basophils (%) (Auto) 1 % (0-3) Neutrophils # (Auto) 3.4 x10^3/uL (1.8-7.7) Lymphocytes # (Auto) 1.6 x10^3/uL (1.0-4.8) Monocytes # (Auto) 0.5 x10^3/uL (0.0-1.1) Eosinophils # (Auto) 0.3 x10^3/uL (0.0-0.7) Basophils # (Auto) 0.0 x10^3/uL (0.0-0.2) Segmented Neutrophils % 66 % (35-66) Band Neutrophils % 1 % (0-9) Lymphocytes % 20 % (24-48) Monocytes % 6 % (0-10) Eosinophils % 6 % (0-5) Basophils % 1 % (0-3) Platelet Estimate Adequate (ADEQUATE) Sodium Level 141 mmol/L (136-145) Potassium Level 3.4 mmol/L (3.5-5.1) Chloride Level 104 mmol/L (98-107) Carbon Dioxide Level 32 mmol/L (21-32) Anion Gap 5 (6-14) Blood Urea Nitrogen 17 mg/dL (7-20) Creatinine 0.8 mg/dL (0.6-1.0) Estimated GFR (Cockcroft-Gault) 69.6 Glucose Level 106 mg/dL (70-99) Calcium Level 8.9 mg/dL (8.5-10.1) Test 02/05/20 11:42 Glucose (Fingerstick) 152 mg/dL (70-99) Allergies Allergies Coded Allergies Type Severity Reaction Last Updated Verified gold Au 198 Allergy Intermediate Swelling 01/29/20 Yes nickel Allergy Intermediate Swelling 01/29/20 Yes silver Allergy Intermediate Swelling 01/29/20 Yes Penicillins Adverse Reaction Intermediate 01/29/20 Yes Tetracyclines Adverse Reaction Intermediate 01/29/20 Yes codeine Adverse Reaction Intermediate Nausea and Vomiting 01/29/20 Yes erythromycin base Adverse Reaction Intermediate Nausea and Vomiting 01/29/20 Yes morphine Adverse Reaction Intermediate VOMITING 01/29/20 Yes Disposition/Orders: Other (d/c to [facility] rehab) Justicifation of Admission Dx: Justifications for Admission: Justification of Admission Dx: Yes IVONE SEYMOUR MD Feb 05, 2020 12:16
[2020-02-05] MEDS: CYCLOBENZAPRINE 10 MG TABLET. PO PRN (12:17)
[2020-02-05] MEDS ORDERED: ENOX40DI3 SQ (12:22)
[2020-02-05] MEDS ORDERED: CHOL500051 PO (12:22)
[2020-02-05] MEDS ORDERED: ACET325T9 PO (12:22)
[2020-02-05] MEDS ORDERED: HYDR-2769 PO (12:22)
[2020-02-05] MEDS ORDERED: MULT1TAB90 PO (12:22)
[2020-02-05] MEDS ORDERED: ERGO500027 PO (12:22)
[2020-02-05] MEDS ORDERED: DOCU-153 PO (12:22)
[2020-02-05] MEDS ORDERED: POLY17PO28 PO (12:22)
--- NOTE | 2020-02-05 12:22 | NUR ---
This SW asked to notarize a HC POA for patient. COLEMAN met with pt and pt's daughter. Pt listed her primary HC agent as her daughter Gladys Avendaño ([phone]) and her alternate agent as her grandson Clif Sales ([phone]). POA for HC completed and notarized (copy on chart). Pt also asked to compete a DNR. DNR completed and on the chart. Addendum: 02/05/20 at 1412 by GARFIELD CEE [facility] called and stretcher transport arranged for between 1730 and 1800. RN notified.
--- NOTE | 2020-02-05 12:24 | SNU/HH DC ---
DISCHARGE ORDERS DISCHARGE INFORMATION: FINAL DIAGNOSIS Problems Medical Problems: (1) Hypomagnesemia Status: Acute (2) Left displaced femoral neck fracture Status: Acute CONDITION ON DISCHARGE: Stable CODE STATUS: Code Status: Full CORRECTION: SNF STAY <30 DAYS: No HOSPICE: HOSPICE: No HOSPICE EVAL & TREAT: No LTAC: ADMIT TO LTAC: No POST DISCHARGE ORDERS: ACTIVITY ORDERS: Activity as tolerated, Walk in house WEIGHT BEARING STATUS: No restrictions, Full weight bearing, As tolerated BATHING ORDERS: Shower-keep dressing dry, No Tub Bath until see DIET AFTER DISCHARGE: Cardiac WOUND/INCISION CARE: Ice to area for comfort, Keep wound/cast CDI, Other, see below CHECKS AFTER DISCHARGE: CHECKS AFTER DISCHARGE: Check blood sugar, ac/hs TREATMENT/EQUIPMENT ORDERS: ADAPTIVE EQUIPMENT NEEDED: None, Front wheeled walker Physical Therapy For: Evalulation/Treatment Occupational Therapy For: Evaluation/Treatment Speech Language Pathology For: Evaluation/Treatment DISCHARGE MEDICATIONS: Home Meds Active Scripts Multivits,Ca,Minerals/Iron/Fa (THERA-M TABLET) 1 Each Tablet, 1 TAB PO DAILY for supplement for 30 Days, #30 TAB Prov:IVONE SEYMOUR MD 02/05/20 Ergocalciferol (Vitamin D2) (Vitamin D2) 1,250 Mcg Capsule, 99873 UNIT PO WEEKLY for bone health for 30 Days, #4 CAP Prov:IVONE SEYMOUR MD 02/05/20 Cholecalciferol (Vitamin D3) (Vitamin D3) 125 Mcg Capsule, 5000 UNIT PO DAILY for bone strength for 30 Days, #30 CAP Prov:IVONE SEYMOUR MD 02/05/20 Polyethylene Glycol 3350 (POLYETHYLENE GLYCOL 3350) 17 Gm Powd.pack, 17 GM PO PRN DAILY PRN for CONSTIPATION for 30 Days, #30 PKT Prov:IVONE SEYMOUR MD 02/05/20 Docusate Sodium (DOK) 100 Mg Capsule, 100 MG PO BID for stools for 30 Days, #60 CAP Prov:IVONE SEYMOUR MD 02/05/20 Acetaminophen (TYLENOL) 325 Mg Tablet, 650 MG PO PRN Q6HRS PRN for MILD PAIN / TEMP > 100.3'F for 30 Days, #60 TAB Prov:IVONE SEYMOUR MD 02/05/20 Hydrocodone Bit/Acetaminophen (HYDROCODONE-APAP 10-325 ) 1 Tab Tablet, 1 TAB PO PRN Q4HRS PRN for PAIN for 14 Days, #60 TAB Prov:IVONE SEYMOUR MD 02/05/20 Enoxaparin Sodium (ENOXAPARIN SODIUM) 40 Mg/0.4 Ml Disp.syrin, 40 MG SQ Q24H for dvt prophylaxis for 7 Days, #7 DIS.SYR Prov:IVONE SEYMOUR MD 02/05/20 Cyclobenzaprine Hcl (CYCLOBENZAPRINE HCL) 5 Mg Tablet, 1 TAB PO TID PRN PRN for PAIN, #12 TAB 0 Refills Prov:NANCY SHAIKH MD 04/12/19 Reported Medications Aspirin (ASPIRIN EC) 325 Mg Tablet., 1 TAB PO BID for blood thinner, #30 TAB 5 Refills 08/05/17 Ferrous Sulfate (FERROUS SULFATE) 325 Mg Tablet, 1 TAB PO BID for supplement, #60 TAB 3 Refills 07/29/17 Losartan Potassium (LOSARTAN POTASSIUM) 100 Mg Tablet, 100 MG PO DAILY for blood pressure, TAB 07/29/17 Atorvastatin Calcium (ATORVASTATIN CALCIUM) 10 Mg Tablet, 10 MG PO HS for FOR CHOLESTEROL, #30 TAB 0 Refills LAST DOSE GIVEN: DATE:08/04/17 TIME:9:00 p.m. next dose is tonight 01/21/17 Omeprazole (OMEPRAZOLE) 40 Mg Capsule.dr, 40 MG PO DAILY for stomach acid, CAP LAST DOSE GIVEN: DATE:03/19/17 TIME:7:30 a.m. 01/21/17 Hydrochlorothiazide (HYDROCHLOROTHIAZIDE TABLET) 50 Mg Tablet, 25 MG PO DAILY for DIURETIC, TAB 0 Refills Meds not given this hospital admission. May resume home medications as approved by Physician. Monitor BP at home 01/21/17 Discontinued Reported Medications Metformin Hcl (METFORMIN HCL) 1,000 Mg Tablet, 1000 MG PO BIDWMEALS for blood sugar, TAB LAST DOSE GIVEN: DATE:03/19/17 TIME:12:00 p.m. 01/21/17 IVONE SEYMOUR MD Feb 05, 2020 12:23
[2020-02-05 14:32] VITALS: BP 107/49
--- NOTE | 2020-02-05 16:43 | NUR ---
pt discharged to [facility] via medical transport. Report given to Rema @ [facility]. meds and follow up reviewed. dressing to left hip changed using abd pad and medipore tape.
== END 2020-02-05 16:49 | DRG 469 ==
LOC: ER 17:58 → 5 NORTH 20:35 → 5 SOUTH 02-02 11:56 → 5 NORTH 02-02 15:11
PROVIDERS: ADMIT Internal Medicine; ATTEND Internal Medicine
PROC: 0SRB069 Replacement of Left Hip Joint with Oxidized Zirconium on Polyethylene Synthetic Substitute, Cemented, Open Approach (ICD-10-PCS; principal; 2020-01-31 10:30)
DX: S72.032A Displaced midcervical fracture of left femur, initial encounter for closed fracture (principal); N17.0 Acute kidney failure with tubular necrosis; F05 Delirium due to known physiological condition; D33.3 Benign neoplasm of cranial nerves; E11.9 Type 2 diabetes mellitus without complications; E83.42 Hypomagnesemia; I10 Essential (primary) hypertension; I25.10 Atherosclerotic heart disease of native coronary artery without angina pectoris; M47.816 Spondylosis without myelopathy or radiculopathy, lumbar region; Z96.649 Presence of unspecified artificial hip joint; Z96.659 Presence of unspecified artificial knee joint; K21.9 Gastro-esophageal reflux disease without esophagitis; Z20.828 Contact with and (suspected) exposure to other viral communicable diseases; W18.39XA Other fall on same level, initial encounter; Z90.711 Acquired absence of uterus with remaining cervical stump; Z91.048 Other nonmedicinal substance allergy status; Y93.89 Activity, other specified; Y92.89 Other specified places as the place of occurrence of the external cause; Y99.8 Other external cause status; Z88.8 Allergy status to other drugs, medicaments and biological substances; Z90.49 Acquired absence of other specified parts of digestive tract; Z90.710 Acquired absence of both cervix and uterus
CPT/HCPCS: 36415; 71045; 71101; 73501; 73502; 80048; 80053; 82306; 82962; 83036; 83735; 85007; 85014; 85018; 85025; 85610; 85730; 87426; 90471; 90686; 93005; 96374; 96375; 99285; A7015; C1713; J0780; J1100; J1170; J1650; J1815; J2370; J2405; J2704; J2710; J2765; J3010; J3260; J3370; J3475; J3490; J7030; 97110-GP; 97116-GP; 97530-GO; 97530-GP; 97535-GO; A4461; G0378; U0003-CS

== ENCOUNTER 2020-06-16 20:31 | Emergency (ER) | payer MEDICARE, OTHER ==
[~2020-06-16] VITALS: Ht 162.6 cm; Wt 75.0 kg
[~2020-06-16 20:31] MED LIST changes: +ACET325T9 PO; +CHOL5000 PO; +DOCU-153 PO; +ENOX40DI3 SQ; +ERGO500089 PO; +HYDR-2769 PO; -HYDR50TA6 PO; +HYDR50TA9 PO; +MULT1TAB92 PO; -OMEP40CA45 PO; +OMEP40CA7 PO; +POLY17PO52 PO
--- NOTE | 2020-06-16 21:18 | PHYS DOC ---
Past Medical History Past Medical History: CAD, Diabetes-Type II, GERD, Heart Disease, Hypertension, Sciatica Past Surgical History: Appendectomy, Hysterectomy, Knee Replacement Additional Past Surgical Histo: left eye implant, rt foot operation,rotator cuf Smoking Status: Never Smoker Alcohol Use: None Drug Use: None General Adult HPI: HPI: Patient is a 79 year old female who presents with Wednesday patient states she slipped and fell and landed on her left side. He states that her left ribs are very painful and she is short of breath and states that also her left femur is painful in the area when she goes to try to stand. She states she cannot put any weight on the extremity. Patient has a history of CAD, diabetes, GERD, hypertension, sciatica, hysterectomy, appendectomy, left eye implant, right foot amputation, rotator cuff surgery. Patient currently states that she has no pain except for when moving. She currently has no pain. Patient denies chest pain, syncope, dizziness, abdominal pain, nausea, vomiting, recent fever, diarrhea, numbness or tingling, back pain, neck pain, headache, hitting her head, focal weakness. Review of Systems: Review of Systems: Constitutional: Denies fever or chills. [] Eyes: Denies change in visual acuity. [] HENT: Denies nasal congestion or sore throat. [] Respiratory: Denies cough. +shortness of breath. + Left rib pain [] Cardiovascular: Denies chest pain or edema. [] GI: Denies abdominal pain, nausea, vomiting, bloody stools or diarrhea. [] : Denies dysuria. [] Musculoskeletal: Denies back pain or + left knee joint pain. + Left femur [] Integument: Denies rash. [] Neurologic: Denies headache, focal weakness or sensory changes. [] Endocrine: Denies polyuria or polydipsia. [] Lymphatic: Denies swollen glands. [] Psychiatric: Denies depression or anxiety. [] Heart Score: HEART Score for Chest Pain: HEART Score for Chest Pain Response (Comments) Value History Slighlty/Non-Suspicious 0 ECG Nonspecific Repolarizatio 1 Age > 65 2 Risk Factors 1 or 2 Risk Factors 1 Troponin < Normal Limit 0 Total 4 Risk Factors: Risk Factors: DM, Current or recent (<one month) smoker, HTN, HLP, family history of CAD, obesity. Risk Scores: Score 0 - 3: 2.5% MACE over next 6 weeks - Discharge Home Score 4 - 6: 20.3% MACE over next 6 weeks - Admit for Clinical Observation Score 7 - 10: 72.7% MACE over next 6 weeks - Early Invasive Strategies Allergies: Allergies: Allergies Coded Allergies Type Severity Reaction Last Updated Verified gold Au 198 Allergy Intermediate Swelling 01/29/20 Yes nickel Allergy Intermediate Swelling 01/29/20 Yes silver Allergy Intermediate Swelling 01/29/20 Yes Penicillins Adverse Reaction Intermediate 01/29/20 Yes Tetracyclines Adverse Reaction Intermediate 01/29/20 Yes codeine Adverse Reaction Intermediate Nausea and Vomiting 01/29/20 Yes erythromycin base Adverse Reaction Intermediate Nausea and Vomiting 01/29/20 Yes morphine Adverse Reaction Intermediate VOMITING 01/29/20 Yes Physical Exam: PE: Constitutional: Well developed, well nourished, no acute distress, non-toxic appearance. [] HENT: Normocephalic, atraumatic, bilateral external ears normal, oropharynx moist, no oral exudates, nose normal. [] Eyes: PERRLA, EOMI, conjunctiva normal, no discharge. [] Neck: Normal range of motion, no tenderness, supple, no stridor. [] Cardiovascular:Heart rate regular rhythm, no murmur [] Lungs & Thorax: Bilateral upper breath sounds clear lower diminished to auscultation. Left rib numbness [] Abdomen: Bowel sounds normal, soft, no tenderness, no masses, no pulsatile masses. [] Skin: Warm, dry, no erythema, no rash. [] Back: No tenderness, no CVA tenderness. [] Extremities: No tenderness, no cyanosis, no clubbing, ROM intact, no edema. [] Neurologic: Alert and oriented X 3, normal motor function, normal sensory function, no focal deficits noted. [] Psychologic: Affect normal, judgement normal, mood normal. [] EKG: EK and read by Dr Stover as sinus rhythm and no stemi Radiology/Procedures: Radiology/Procedures: [] Impression: [facility] [address] [place] [address] IMAGING REPORT Signed PATIENT: JAYLON OGLESBY ACCOUNT: [id number] : 1940 LOCATION: ER AGE: 79 SEX: F EXAM STATUS: PRE ER ORD. PHYSICIAN: CINTIA RENE APRN REASON: pain after fall, soa PROCEDURE: RIBS LEFT AND PA CHEST AP chest and left rib 4 views INDICATION: Left rib pain after fall COMPARISON: Right rib x-rays of 02/04/2020 FINDINGS: Normal heart size. Post-CABG surgical changes and aortic calcification and tortuosity is redemonstrated. The lungs are clear on suboptimal inspiration. No pneumothorax or pleural effusion is evident. The left ribs show no displaced fractures and no aggressive appearing osseous lesions. IMPRESSION: No acute fracture or aggressive osseous lesion on left rib series and no acute traumatic findings on single view chest. Electronically signed by: David Johansen MD (06/16/2020 10:03 PM) [facility] [place] DICTATED and SIGNED BY: DAVID JOHANSEN MD DATE: 06/16/20 [id number] [facility] [address] [place] [address] IMAGING REPORT Signed PATIENT: JAYLON OGLESBY ACCOUNT: [id number] : 1940 LOCATION: ER AGE: 79 SEX: F EXAM STATUS: PRE ER ORD. PHYSICIAN: CINTIA RENE APRN REASON: pain after fall, soa PROCEDURE: KNEE LEFT 3V EXAM: AP pelvis, AP and lateral views left hip AP and lateral view left femur AP, oblique and lateral views left knee DATE: 06/16/2020 9:24 PM INDICATION: Reason: pain after fall, soa / Spl. Instructions: / History: COMPARISON: No Prior FINDINGS: Decreased bone mineral density limits evaluation for acute fracture. No definite pelvic fracture the left hip joint fractures identified. 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 Vascular calcifications are seen. Scattered surgical clips are seen. No knee joint effusion. IMPRESSION: 1. No evidence of acute fracture or dislocation. 2. Left total knee and left hip arthroplasty, in good alignment without definite hardware complication or fracture. Electronically signed by: Renan Ho MD (06/16/2020 10:00 PM) [facility] DI[facility]ATED and SIGNED BY: RENAN HO MD DATE: 06/16/20 [id number] 0 Course & Med Decision Making: Course & Med Decision Making Pertinent Labs and Imaging studies reviewed. (See chart for details) Patient can bend her left knee with full range of motion. There is no left leg tenderness with palpation over the whole leg. No bruising, swelling, joint deformity, laceration, abrasions. No focal bony spinal tenderness. Full range of motion of the neck. No trauma to the face or the skull. No pain with any pelvic rock. She states the pain is an aching or sharp type pain. Speaks in full clear sentences. Alert and oriented x4. She states that today was the first day that she is try to get up and walk with her walker and is on she does not put any pressure on the leg she can get around with a walker. Patient states that her daughter been getting her up and pain in the wheelchair willing to carry her around since the fall. Left ribs are very tender but there is no subcutaneous emphysema or crepitus. Lungs are clear in upper lobes with diminished in lower lobes. Skin pink warm and dry. Pedal pulses strong and present. Refill less than 2 seconds. No unilateral swelling. Abdomen soft and nontender. Patient has a urinary tract infection that is positive for nitrites. Patient was able to get up and go to the restroom without complication. She states that she will be able to use her walker and get up and move at home. Patient is given a incentive spirometer and taught how to use it. [] Dragon Disclaimer: Draggilmer Disclaimer: This electronic medical record was generated, in whole or in part, using a voice recognition dictation system. Departure Departure Impression: Primary Impression: Rib pain on left side Additional Impressions: Pain of left femur UTI (urinary tract infection) Qualified Codes: N30.00 - Acute cystitis without hematuria Fall Qualified Codes: W19.XXXA - Unspecified fall, initial encounter Disposition: 01 DC HOME SELF CARE/HOMELESS Condition: STABLE Referrals: GEOFFREY REDDING MD (PCP) Patient Instructions: Fall Prevention and Home Safety, Rib Contusion, Urinary Tract Infection Additional Instructions: Follow-up with your primary care your orthopedic doctor soon as possible. Use incentive spirometer as you are educated. Take medication as prescribed and w ith food. If you worsen, return to the emergency room. Scripts Nitrofurantoin Monohyd/M-Cryst (MACROBID 100 MG CAPSULE) 100 Mg Capsule 1 CAP PO BID for 10 Days, #20 CAP 0 Refills Prov: CINTIA RENE APRN 06/16/20 CINTIA RENE APRN Jun 16, 2020 21:18
--- NOTE | 2020-06-16 22:19 | RAD ---
EXAM: AP pelvis, AP and lateral views left hip AP and lateral view left femur AP, oblique and lateral views left knee DATE: 06/16/2020 9:24 PM INDICATION: Reason: pain after fall, soa / Spl. Instructions: / History: COMPARISON: No Prior FINDINGS: Decreased bone mineral density limits evaluation for acute fracture. No definite pelvic fracture the left hip joint fractures identified. Changes of left total knee arthroplasty and left hip arthroplast y, in good alignment without definite hardware complication or fracture. Vascular calcifications are seen. Scattered surgical clips are seen. No knee joint effusion. IMPRESSION: 1. No evidence of acute fracture or dislocation. 2. Left total knee and left hip arthroplasty, in good alignment without definite hardware complicati on or fracture. Electronically signed by: Renan Hale MD (06/16/2020 10:00 PM) [facility]
--- NOTE | 2020-06-16 22:19 | RAD ---
AP chest and left rib 4 views INDICATION: Left rib pain after fall COMPARISON: Right rib x-rays of 02/04/2020 FINDINGS: Normal heart size. Post-CABG surgical changes and aortic calcification and tortuosity is redemonstrat ed. The lungs are clear on suboptimal inspiration. No pneumothorax or pleural effusion is evident. The left ribs show no displaced fractures and no aggressive appearing osseous lesions. IMPRESSION: No acute fracture or aggressive osseous lesion on left rib series and no acute traumatic findings on single view chest. Electronically signed by: Pebbles Johansen MD (06/16/2020 10:03 PM) [facility]
[2020-06-16 22:27] LABS: BASO # 0.1 x10^3/uL (0.0-0.2); BASO % 1 % (0-3); EOS # 0.2 x10^3/uL (0.0-0.7); EOS % 1 % (0-3); HEMATOCRIT 37.7 % (36.0-47.0); HEMOGLOBIN 12.4 g/dL (12.0-15.5); LYMPH % 17 % (24-48); MEAN CORPUSCULAR HEMOGLOBIN 27 pg (25-35); MEAN CORPUSCULAR HGB CONC 33 g/dL (31-37); MEAN CORPUSCULAR VOLUME 83 fL (79-100); MONO # 0.7 x10^3/uL (0.0-1.1); MONO % 6 % (0-9); NEUT # 8.3 x10^3/uL (1.8-7.7); NEUT % 74 % (31-73); PLATELET COUNT 159 x10^3/uL (140-400); RED BLOOD COUNT 4.55 x10^6/uL (3.50-5.40); RED CELL DISTRIBUTION WIDTH 16.7 % (11.5-14.5); WHITE BLOOD COUNT 11.2 x10^3/uL (4.0-11.0)
[2020-06-16 22:36] LABS: CALCIUM 9.4 mg/dL (8.5-10.1); CREATININE 1.1 mg/dL (0.6-1.0); GFR 48.2; POTASSIUM 3.8 mmol/L (3.5-5.1)
[2020-06-16 22:42] LABS: ALBUMIN 3.8 g/dL (3.4-5.0); ALBUMIN/GLOBULIN RATIO 1.2 (1.0-1.7); TOTAL BILIRUBIN 0.3 mg/dL (0.2-1.0); TOTAL PROTEIN 7.1 g/dL (6.4-8.2)
[2020-06-16 23:11] LABS: BILIRUBIN,URINE NEGATIVE (NEG); CLARITY,URINE CLEAR; COLOR,URINE YELLOW; NITRITE,URINE POSITIVE (NEG); PH,URINE 7.5 (<5.0-8.0); PROTEIN,URINE NEGATIVE (NEG-TRACE); UROBILINOGEN,URINE 0.2 mg/dL (0.2 mg/dL)
[2020-06-16 23:19] LABS: BACTERIA,URINE MANY /HPF (0-FEW); RBC,URINE OCC /HPF (0-2)
[2020-06-16] MEDS ORDERED: NITR100C62 PO (23:41)
[2020-06-17] MEDS ORDERED: cefTRIAXone IV Push 1 GM VIAL. IVP ONE
[2020-06-17 00:02] VITALS: BP 158/65
--- NOTE | 2020-06-17 04:41 | EKG ---
[facility] [address] [place] [address] Test Date: 2020-06-16 Test Time: 23:09:05 Pat Name: JAYLON OGLESBY Department: Room: Gender: F Gore Stitcher: : 1940 Requested By: CINTIA RENE Order Number: [id number] Reading MD: Toan Brito Measurements Intervals [place] Rate: 73 P: 52 TX: 158 QRS: 36 QRSD: 80 T: 65 QT: 406 QTc: 451 Interpretive Statements SINUS RHYTHM NORMAL ECG Electronically Signed On 06-25-2020 13:01:37 [employer]ATOR [employer] by Toan Brito
== END 2020-06-17 00:36 | disposition home or self-care (01) ==
LOC: ER 20:31
DX: R07.81 Pleurodynia (principal); N30.00 Acute cystitis without hematuria; M79.605 Pain in left leg; M25.552 Pain in left hip; M25.562 Pain in left knee; G89.11 Acute pain due to trauma; E11.9 Type 2 diabetes mellitus without complications; K21.9 Gastro-esophageal reflux disease without esophagitis; I11.9 Hypertensive heart disease without heart failure; I25.10 Atherosclerotic heart disease of native coronary artery without angina pectoris; Z90.89 Acquired absence of other organs; Z90.710 Acquired absence of both cervix and uterus; W01.0XXA Fall on same level from slipping, tripping and stumbling without subsequent striking against object, initial encounter; Y93.89 Activity, other specified; Y92.89 Other specified places as the place of occurrence of the external cause; Y99.8 Other external cause status
CPT/HCPCS: 36415; 71101; 73502; 73552; 73562; 80053; 81001; 84484; 85025; 87086; 93005; 96374; 99285; J0696; 87077; 87186